=== PATIENT | female | born 1945 | race Caucasian/White ===

== ENCOUNTER 2019-08-23 22:24 | Emergency (ER) | payer MEDICARE, OTHER, SELFPAY ==
[2019-08-23 22:35] VITALS: BP 193/126; PULSE 93; RESP 18; TEMP 36.6; O2SAT 98; BMI 19.1
--- NOTE | 2019-08-23 22:35 | ED_ITS ---
HPI - General Adult General: Chief complaint: General Medical Stated complaint: high bp Time Seen by Provider: 08/23/19 22:25 Source: patient Mode of arrival: ambulatory Limitations: no limitations History of Present Illness: HPI narrative: mild headache noted earlier today, checked BP and noted it was very elevated Severity scale (1-10): 2 Associated symptoms: Deny headache(s) Review of Systems General: Reports: 10 or more systems reviewed and unremarkable except in HPI and below Eyes: Denies: change in vision or blurry vision Neuro: Denies: headache Psych: Denies: anxiety PFSH ED PFSH: Social History Smoking and tobacco status: never smoked Physical Exam Const: COMMON NORMALS: no apparent distress, oriented x3, no limitations and alert GENERAL APPEARANCE: cooperative and comfortable ORIENTATION/CONSCIOUSNESS: Yes awake, Yes oriented to person, Yes oriented to place and Yes oriented to time HENMT: COMMON NORMALS: normocephalic, head/scalp atraumatic, external ears normal, EAC's normal, TM's normal bilaterally and external nose normal HEAD & SCALP: normal to inspection, normocephalic and atraumatic FACE & SINUS: normal facial exam, sinuses nontender and face symmetric NOSE: external nose normal, nares normal and no nasal discharge EXTERNAL EAR: Yes external ears normal EXTERNAL AUDITORY CANAL: EAC's normal TYMPANIC MEMBRANE: TM's normal bilaterally MOUTH: oral and palatal mucosa normal, lip normal and tongue normal THROAT: posterior oropharynx normal, tonsils normal and uvula midline Eye: COMMON NORMALS: PERRL, EOMs intact bilaterally and conjunctivae normal GENERAL EYE: normal appearance of both eyes and normal light reflex EYELID: eyelids normal CONJUNCTIVA: Yes conjunctivae normal PUPIL: Yes PERRL EOM: Yes EOM abnormal DIRECT OPHTHALMOSCOPY: Yes normal light reflex Neck/C-Spine: COMMON NORMALS: full ROM, no lymphadenopathy, supple, no meningeal signs, no JVD and thyroid normal GENERAL: Yes normal visual inspection THYROID: thyroid normal CERVICAL SPINE: Yes cervical ROM normal and Yes normal cervical lordosis Lymph: LYMPHATIC: no lymphadenopathy noted Chest: COMMONS NORMALS: inspection of chest normal and palpation of chest normal Resp: COMMON NORMALS: normal respiratory effort, no retractions and clear to auscultation bilaterally AUSCULTATION: clear to auscultation bilaterally Cardio: COMMON NORMALS: no JVD, regular rate, regular rhythm, S1 normal heart sound, S2 normal heart sound, no gallops, no clicks, no murmurs, no rub and peripheral pulses 2+ throughout RATE: regular rate RHYTHM: regular rhythm HEART SOUNDS: S1 normal and S2 normal PERIPHERAL PULSES: pulses 2+ through out GI: COMMON NORMALS: normal to inspection, nondistended, normoactive bowel sounds, soft to palpation, non-tender and no masses PALPATION: Yes soft : COMMON NORMALS: Yes no CVA tenderness and Yes external appearance normal BLADDER/KIDNEY EXAM: Yes no CVA tenderness Back/Pelvis: COMMON NORMALS: no CVA tenderness, thoracic and lumbar spine normal to inspection, no thoracic nor lumbar tenderness and thoraco-lumbar ROM normal Extremity: COMMON NORMALS: normal to inspection, full ROM, normal capillary refill, no joint enlargement, no clubbing, cyanosis or edema, no calf tenderness and no pedal edema GENERAL: Yes normal exam except as noted Neuro: COMMON NORMALS: oriented x3, moves all extremities, no focal motor deficits, no sensory deficits noted and gait normal SENSORIUM/ORIENTATION: Yes alert, Yes oriented to person, Yes oriented to place and Yes oriented to time MENINGEAL SIGNS: Yes no meningeal signs Psych: COMMON NORMALS: mental status grossly normal, thought process normal, cooperative, affect normal, speech normal and activity/motor behavior normal SPEECH: Yes normal speech THOUGHT PROCESS: normal thought process Skin: COMMON NORMALS: no rashes or lesions noted, no wounds and skin turgor normal GENERAL SKIN EXAM: no rashes or lesions noted and turgor normal Course ED course: pt has no neurological deficits, no changes in vision, mild headache, and denies CP or SOB. Reevaluation(s): Reevaluation #1: Discussed pt with my ER attending, Dr. Soria. Will proceed with amlodipine PO and hydralizine. CT head deferred at this time as pt has minimal headache and is not on any anticoagulants. Time: 23:51 Reevaluation #2: Pt feeling slightly better. She complains of some lightheaded ness and general malaise after her BP came back down. Also pt developed a rash on face after the amlodipine was given. She does not complain of any cp or sob at this time and is not itching or having difficulty swallowing. Ativan given to help pt feel less shakey. EKG shows RBBB incomplete. Labs are within normal limits. Will dc with clonidine and pt to follow up with pcp for BP medications. Time: 02:05 Vital Signs: Vital signs: Vital Signs Temperature 97.8 F 08/23/19 22:35 Pulse Rate 98 08/24/19 01:32 Respiratory Rate 16 08/24/19 01:47 Blood Pressure 153/100 08/24/19 01:47 Pulse Oximetry 98 08/24/19 01:47 MDM - General Adult Lab Data: Labs: Lab Results 08/23/19 08/23/19 Range/Units 23:27 23:27 WBC 5.8 (4.0-10.0) 10^3/ uL RBC 4.52 (4.1-5.3) 10^6/u L Hgb 13.1 (11.5-15.3) g/dL Hct 39.5 (37.0-47.0) % MCV 87.4 (81-99) fL MCH 29.0 (28.0-34.0) pg MCHC 33.2 (30.0-36.0) g/dL RDW 13.0 (12.1-15.1) % Plt Count 266 (130-400) 10^3/c mm MPV 9.0 (7.4-10.4) fL Neut % (Auto) 74.8 % Lymph % (Auto) 15.3 % [place] % (Auto) 9.0 % Eos % (Auto) 0.3 % Baso % (Auto) 0.3 % Neut # (Auto) 4.3 (1.8-7.7) 10^3/u L Lymph # (Auto) 0.9 (0.8-4.8) 10^3/u L [place] # (Auto) 0.5 (0.2-0.9) 10^3/u L Eos # (Auto) 0.0 (0.0-0.8) 10^3/u L Baso # (Auto) 0.0 (0.0-0.1) 10^3/u L Nucleated RBC % (a uto) 0 % Nucleated RBCs # 0.0 /100WBC Sodium 136 (136-145) mmol/L Potassium 4.4 (3.5-5.1) mmol/L Chloride 99 (98-107) mmol/L Carbon Dioxide 25 (22-29) mmol/L Anion Gap 16.4 (5-19) BUN 16 (8-23) mg/dL Creatinine 0.8 (0.5-0.9) mg/dL Glucose 132 H (65-115) mg/dL Calculated Osmolal ity 280 L (285-295) mOsm/k g Calcium 10.3 (8.5-10.5) mg/dL Total Bilirubin 0.4 (0.15-1.2) mg/dL AST 23 (0-32) U/L ALT 19 (0-33) U/L Alkaline Phosphata se 80 (35-105) IU/L Total Protein 7.4 (6.6-8.7) g/dL Albumin 4.6 (3.5-5.2) g/dL Globulin 2.8 (1.3-4.6) g/dL Discharge Plan Discharge Patient Disposition: Home, Self-Care Clinical Impression: Hypertension Condition: Stable Prescriptions: New clonidine HCl 0.1 mg tablet 0.1 mg PO Q6H PRN (Reason: hypertensive emergency) Qty: 10 RF: 0 Referrals: Meenakshi Solis MD [Primary Care Provider] - Discharge Diet: Advance as tolerated and Low Salt Discharge Activity: Resume usual activity Activity Restrictions/Additional Instructions: Please return if you develop CP or SOB. Follow up with your on Monday. Coding Level of Care Code ED Interlibrary Loan Specialist for Chg Fwd Exam Comprehensive
--- NOTE | 2019-08-23 23:00 | PC.NURSE ---
patient states she was dizzy today and sick to her stomach and her son advised her to take her blood pressure. the patient took her blood pressure and it was a high reading. patient states that she has a headache and she has had high blood pressure episode one other time and gave her blood pressure medicine and her blood pressure was getting too low with the medication so she stopped taking her medicine that was prescribed.
[2019-08-23 23:03] VITALS: BP 195/115; PULSE 100; RESP 16; O2SAT 100
[2019-08-23] MEDS: amlodipine 5 mg Tablet PO (23:19)
[2019-08-23] MEDS: hyDRALAzine 20 mg/mL INJ 1 mL 10 MG IVP (23:20)
[2019-08-23 23:25] VITALS: BP 170/107; PULSE 88; RESP 14; O2SAT 100
[2019-08-23 23:34] LABS: Basophils % 0.3 %; Eosinophils % 0.3 %; Hematocrit 39.5 % (37.0-47.0); Hemoglobin 13.1 g/dL (11.5-15.3); Lymphocytes # 0.9 10^3/uL (0.8-4.8); Lymphocytes % 15.3 %; Mean Corpuscular HGB Conc 33.2 g/dL (30.0-36.0); Mean Corpuscular Volume 87.4 fL (81-99); Monocytes # 0.5 10^3/uL (0.2-0.9); Neutrophils # 4.3 10^3/uL (1.8-7.7); Neutrophils % 74.8 %; Nucleated Red Blood Cells % 0 %; Platelet Count 266 10^3/cmm (130-400); Red Blood Count 4.52 10^6/uL (4.1-5.3); White Blood Count 5.8 10^3/uL (4.0-10.0)
[2019-08-23 23:50] LABS: Alanine Aminotransferase 19 U/L (0-33); Albumin Level 4.6 g/dL (3.5-5.2); Alkaline Phosphatase 80 IU/L (35-105); Anion Gap 16.4 (5-19); Aspartate Amino Transferase 23 U/L (0-32); Blood Urea Nitrogen 16 mg/dL (8-23); Calcium 10.3 mg/dL (8.5-10.5); Carbon Dioxide 25 mmol/L (22-29); Chloride 99 mmol/L (98-107); Creatinine Clr Calc Pharmacy 55.2564; Globulin 2.8 g/dL (1.3-4.6); Glucose 132 mg/dL (65-115); Osmolality Calculated 280 mOsm/kg (285-295); Potassium 4.4 mmol/L (3.5-5.1); Sodium 136 mmol/L (136-145); Total Bilirubin 0.4 mg/dL (0.15-1.2); Total Protein 7.4 g/dL (6.6-8.7)
[2019-08-24 00:10] VITALS: BP 161/93; PULSE 98; RESP 16; O2SAT 100
--- NOTE | 2019-08-24 00:14 | PC.NURSE ---
placed patient on 1 liter oxygen per hcp verbal order
[2019-08-24 00:45] VITALS: BP 156/87; O2SAT 100
--- NOTE | 2019-08-24 01:16 | ECG_ITS ---
Measurements Intervals [place] Rate: 90 P: 69 FL: 140 QRS: -12 QRSD: 95 T: 54 QT: 366 QTc: 448 SINUS RHYTHM WITH SINUS ARRHYTHMIA INDETERMINATE AXIS INCOMPLETE RIGHT BUNDLE BRANCH BLOCK [90+ ms QRS DURATION, TERMINAL R IN V1/V2, 4 40+ ms S IN I/aVL/V4/V5/V6] Compared to ECG 07/10/2016 00:09:12 Myocardial infarct finding no longer present Electronically Signed On 08-24-2019 20:22:27 CDT by Grisel Mitchell M.D. [email or web address] thomas
[2019-08-24] MEDS: LORazepam 2 mg/mL INJ 1 mL IVP (01:30)
[2019-08-24 01:32] VITALS: BP 153/100; PULSE 98; RESP 16; O2SAT 99
[2019-08-24 01:47] VITALS: BP 153/100; RESP 16; O2SAT 98
[2019-08-24 02:21] VITALS: BP 128/73; PULSE 89; RESP 16; O2SAT 99
== END 2019-08-24 02:23 | disposition home or self-care (01) ==
PROVIDERS: Emergency Provider Nurse Practitioner Family; PCP Family Medicine
DX: I10 Essential (primary) hypertension (principal)
CPT/HCPCS: 12345; 80053; 85025; 93005; 96374; 96375; 99283; 99284; J0360; J2060

== ENCOUNTER 2019-08-27 07:50 | Outpatient (CLI) | payer MEDICARE, OTHER, SELFPAY ==
--- NOTE | 2019-08-27 | USCV_ITS ---
Bette Dawson Age: 74 Gender: F : 1945 Exam Date: 08/27/2019 08:16 Ordering Phys: Talisha Gilbert Technologist: Kimmy Argueta Exam Location: [facility] – [place] Indication: TIA Risk Factors: Previous Vascular Surgery: Right Brachial BP: / Left Brachial BP: / Right Left Velocity (cm/s) Spectral Plaque Velocity (cm/s) Spectral Plaque Syst/Diast Broadening Syst/Diast Broadening 73.60/ 16.10 Prox CCA 71.60 / 13.90 72.80/ 12.30 Mid CCA 79.40 / 20.90 68.70/ 13.50 Distal CCA 75.00 / 17.60 40.80/ 14.30 Prox ICA 43.50 / 17.20 78.30/ 27.60 Mid ICA 54.70 / 17.20 76.70/ 27.00 Distal ICA 69.70 / 21.80 89.80 ECA 66.00 1.08 ICA/CCA 0.88 Antegrade Vertebral Antegrade 59.40/ 14.20 cm/s 29.00/ 6.90 cm/s Tri Subclavian Tri 48.70 106.0 0 FINDINGS Minimal plaques at the bifurcations bilaterally. Intimal thickening in the common carotid arteries bilaterally. Normal Doppler flow velocities in the external and internal carotid arteries bilaterally. Antegrade flow in the vertebral arteries bilaterally. CONCLUSIONS Minimal plaques at the bifurcations bilaterally. No significant stenosis, based on the above findings. Dr Richard Lee MD [facility] (Electronically Signed) Final Date: 27 August 2019 16:42 S
--- NOTE | 2019-08-27 | USCV_ITS ---
Bette Dawson Age: 74 Gender: F : 1945 Exam Date: 08/27/2019 08:01 Ordering Phys: Talisha Gilbert Technologist: Kimmy Argueta Exam Location: [facility] [place] Indication: TIA BP: 166 / 102 HR: 83 Rhythm: Sinus Technical Quality: Adequate MEASUREMENTS (Male / Female) Normal Values 2D ECHO LV Diastolic Diameter PLAX 3.7 cm 4.2 - 5.9 / 3.9 - 5.3 cm LV Systolic Diameter PLAX 2.3 cm LV Chamber Size 3.3 cm IVS Diastolic Thickness 0.8 cm 0.6 - 1.0 / 0.6 - 0.9 cm IVS Systolic Thickness 1.1 cm LVPW Diastolic Thickness 1.7 cm 0.6 - 1.0 / 0.6 - 0.9 cm LVPW Systolic Thickness 1.9 cm RV Chamber Size 2.2 cm LVOT Diameter 2.0 cm LV Ejection Fraction 2D Teich 67.1 % LV Ejection Fraction MOD 2C 50.9 % LV Ejection Fraction 2C AL 50.5 % LA Diameter 2.9 cm LA Width 2.4 cm LA Height 2.9 cm RA Width 2.5 cm RA Height 2.8 cm Aorta at Sinotubular Diameter 2.7 cm M-MODE LV Diastolic Diameter MM 5.4 cm 4.2 - 5.9 / 3.9 - 5.3 cm LV Systolic Diameter MM 3.3 cm LV Ejection Fraction MM Teich 68.4 % IVS Diastolic Thickness MM 0.5 cm 0.6 - 1.0 / 0.6 - 0.9 cm IVS Systolic Thickness MM 0.6 cm LVPW Diastolic Thickness MM 0.8 cm 0.6 - 1.0 / 0.6 - 0.9 cm LVPW Systolic Thickness MM 1.1 cm Aortic Annulus Diameter 2.4 cm LA Ao Ratio MM 1.2 MV E Point Septal Separation 0.6 cm DOPPLER AV Peak Velocity 118.0 cm/s LVOT Peak Velocity 93.0 cm/s AV Area Cont Eq vti 2.5 cm squared AV Area Cont Eq pk 2.5 cm squared MV Area PHT 4.0 cm squared Mitral E to A Ratio 1.0 MV E' Velocity 10.0 cm/s Mitral E to MV E' Ratio 7.7 Mitral E to LV E' Lateral Ratio 8.6 Mitral E to LV E' Septal Ratio 7.0 TR Peak Velocity 295.0 cm/s TR Peak Gradient 34.7 mmHg TR Mean Velocity 218.8 cm/s TR Mean Gradient 20.6 mmHg TR Velocity Time Integral 95.7 cm TV Peak E Velocity 49.0 cm/s Right Atrial Pressure 3.0 mmHg Pulmonary Artery Systolic Pressu 37.8 mmHg PV Peak Velocity 61.0 cm/s RV Acceleration Time 0.2 s RV Ejection Time 0.4 s RV AcT/ET 0.4 FINDINGS Left Ventricle Normal left ventricular size and systolic function, EF 55 %. No regional wall motion abnormalities. Right Ventricle The right ventricle is normal in size and function. Right Atrium The right atrium is normal in size. Left Atrium The left atrium is normal in size. Mitral Valve No gross abnormalities noted Aortic Valve No gross abnormalities noted Tricuspid Valve No gross abnormalities noted Trace to mild tricuspid valve regurgitation. Estimated pulmonary artery peak systolic pressure was 38 mmHg Pulmonic Valve No gross abnormalities noted Pericardium Normal pericardium without effusion. Aorta Normal ascending aorta dimension. CONCLUSIONS Normal left ventricular size and systolic function, EF 55 %. No regional wall motion abnormalities. Normal chamber sizes. Trace to mild tricuspid valve regurgitation. Estimated pulmonary artery peak systolic pressure was 38 mmHg No significant stenotic or regurgitant lesions based on the color flow Doppler examination. There is no pericardial effusion. There are no intracardiac masses. Compared to the study from 07/20/2016, there may not be a significant change Dr Richard Lee MD [facility] (Electronically Signed) Final Date: 27 August 2019 16:40 S
== END 2019-08-27 07:51 | disposition home or self-care (01) ==
LOC: RAD 07:54
PROVIDERS: PCP Family Medicine; Visit Provider Nurse Practitioner Family
DX: G45.9 Transient cerebral ischemic attack, unspecified (principal)
CPT/HCPCS: 93306; 93880

== ENCOUNTER 2019-08-28 08:34 | Outpatient (CLI) | payer MEDICARE, OTHER, SELFPAY ==
--- NOTE | 2019-08-28 08:50 | MR_ITS ---
WS: [id number] MRI BRAIN WITH AND WITHOUT CONTRAST HISTORY: TIA comment dizziness and hypertension. COMPARISON: None available. TECHNIQUE: Multiplanar imaging performed through the brain with Prohance 12 ml's IV. There is significant artifact through the brain on multiple sequences. Patient would not remove perso nal productive mask, which had metal. The diffusion-weighted images are limited due to the significant artifact from the patient's personal protective device. Similar artifact throughout the susceptibility and postcontrast imaging. No diffu brayden-weighted images or hemorrhage is identified. Mild chronic microvascular ischemic disease. Very mild atrophy. Ventricles and extra-axial spaces are normal. Clivus and pituitary gland are normal. Visualized posterior fossa and brainstem are also normal. Postcontrast images are limited by artifact from the patient's personal protective device. No mass id entified or abnormal enhancement in the areas without artifact. Dural venous sinuses are normal. Paranasal sinuses: Well aerated with no significant disease. Mastoid air cells: Normal. Calvarium and scalp: Normal. MR/MR head wo/w con [id number] IMPRESSION: 1. Study is limited by artifact from the patient's personal protective mask th at she would not removed. 2. No acute infarcts or hemorrhage or abnormal enhancement identified in the a reas of brain not obscured by artifact. 3. Mild atrophy and mild chronic microvascular ischemic disease.
== END 2019-08-28 08:35 | disposition home or self-care (01) ==
LOC: RADWPI 08:41
PROVIDERS: PCP Nurse Practitioner Family; Visit Provider Nurse Practitioner Family
DX: G45.9 Transient cerebral ischemic attack, unspecified (principal); R42 Dizziness and giddiness; I10 Essential (primary) hypertension; G31.9 Degenerative disease of nervous system, unspecified
CPT/HCPCS: 70553; A9579

== ENCOUNTER → 2020-01-30 11:15 | Outpatient (BNVA) | payer MEDICARE, OTHER, SELFPAY | PROVIDERS: PCP Nurse Practitioner Family; Referring Provider Nurse Practitioner Family; Visit Provider Dermatology | DX: L71.8 Other rosacea (principal); L82.1 Other seborrheic keratosis; D18.01 Hemangioma of skin and subcutaneous tissue; L57.0 Actinic keratosis; L71.9 Rosacea, unspecified | CPT/HCPCS: 17000; 17003; 99203; 99204 ==

== ENCOUNTER 2021-02-10 10:28 | Outpatient (CLI) | payer MEDICARE, OTHER, SELFPAY ==
--- NOTE | 2021-02-10 10:33 | MM_ITS ---
WS: [id number] Bilateral screening digital mammogram, 02/10/2021 Clinical Data: SCREENING Comparison: None. Findings: The breast parenchymal pattern shows extreme density. No spiculated masses or clustered calcificatio ns are seen. There are no secondary signs of carcinoma. MM/[place] [id number] Impression: 1. Negative bilateral mammogram with no prior exam for review. 2. Recommend annual screening mammograms. BIRADS: 1-Negative FOLLOW UP: 1 Year Follow-up The CAD tip length checker was used.
== END 2021-02-10 10:29 | disposition home or self-care (01) ==
LOC: RADSHAW 10:32
PROVIDERS: PCP Nurse Practitioner Family; Visit Provider Nurse Practitioner Family
DX: Z12.31 Encounter for screening mammogram for malignant neoplasm of breast (principal)
CPT/HCPCS: 77067

== ENCOUNTER 2021-09-14 12:32 | Outpatient (CLI) | payer MEDICARE, OTHER, SELFPAY ==
--- NOTE | 2021-09-14 12:44 | XR_ITS ---
WS: [id number] DEXA (DUAL ENERGY X-RAY ABSORPTIOMETRY) Bone mineral density was performed using a Voddler machine. HISTORY: ANNUAL EXAM COMPARISON: None available. Lumbar spine BMD (L2-L4): 0.809 T score: -3.3 Z score: -1.1 Total hip BMD: Left: 0.588 g/cm2. T score: -3.3 Z score: -1.3 Right: 0.624 g/cm2. T score: -3.0 Z score: -1.1 10 year probability of a major osteoporotic fracture is 25%. XR/XR DEXA axial skeleton* [id number] IMPRESSION: OSTEOPOROSIS based upon the WHO classification for females.
== END 2021-09-14 12:33 | disposition home or self-care (01) ==
PROVIDERS: PCP Nurse Practitioner Family; Visit Provider Nurse Practitioner Family
DX: Z00.00 Encounter for general adult medical examination without abnormal findings (principal); M81.0 Age-related osteoporosis without current pathological fracture
CPT/HCPCS: 77080

== ENCOUNTER → 2021-10-06 11:56 | Outpatient (BNVA) | payer MEDICARE, OTHER, SELFPAY | PROVIDERS: PCP Nurse Practitioner Family; Visit Provider Nurse Practitioner Family | DX: M81.0 Age-related osteoporosis without current pathological fracture (principal) | CPT/HCPCS: 82306 ==

== ENCOUNTER → 2022-02-07 09:45 | Outpatient (BNVA) | payer MEDICARE, OTHER, SELFPAY | PROVIDERS: PCP Nurse Practitioner Family; Referring Provider Family Medicine; Visit Provider Surgery | DX: R19.5 Other fecal abnormalities (principal) | CPT/HCPCS: 99203 ==

== ENCOUNTER 2022-02-14 10:58 | Day surgery (SDC) | payer MEDICARE, OTHER, SELFPAY ==
[2022-02-10 14:06] VITALS: BMI 19.1
[2022-02-14 11:24] VITALS: BP 178/103; PULSE 107; RESP 18; TEMP 36.3; O2SAT 99
[2022-02-14] MEDS: sodium chloride 0.9% 1,000 ML 30 ML IV (11:36)
--- NOTE | 2022-02-14 11:46 | ANES.PREANE2 ---
Pre-Anesthetic Assessment Height/Weight: Height 1.65 m Weight 52.163 kg Temp Pulse Resp BP Pulse Ox O2 Del Method 97.3 F L 107 H 18 178/103 99 02/14/22 11:24 02/14/22 11:24 02/14/22 11:24 02/14/22 11:24 02/14/22 11:24 02/14/22 11:24 Preop Diagnosis: Positive colorectal cancer screening. Operation Date: 02/14/22 12:30 Proposed Procedures p Colonoscopy(Not Applicable) - Colton Elizondo DO Familial anesthetic complications: none Last intake: Intake Last Liquid Date 02/13/22 Last Liquid Time 19:30 Last Solid Date 02/12/22 Last Solid Time 18:00 Social No alcohol and No tobacco Airway Submandibular: within normal limits Cervical ROM: within normal limits Mallampati: Class I Dentition: full Pulmonary None reported CV/HEM None reported None reported Hepatic None reported GI None reported Metabolic None reported Musc/skel None reported Neuropsych None reported Anesthetic Plan ASA status: 1 Anesthesia: MAC Medications/Allergies Home Medications Medication Instructions Recorded Confirmed Last Taken Type triamcinolone acetonide 0.1 % 1 applic topical BID #80 grams 04/27/21 02/14/22 6 Months Ago Rx topical cream ~08/14/21 alendronate 70 mg tablet See Rx Instructions .Route .COMPLEX 02/10/22 02/10/22 02/09/22 History peg 3350-electrolytes 236 240 ml PO Q10M #4,000 mL 02/10/22 02/14/22 02/13/22 Rx gram-22.74 gram-6.74 gram-5.86 gram solution (Golytely) Allergies Allergy/AdvReac Type Severity Reaction Status Date / Time No Known Allergies Allergy Verified 02/07/22 09:51 Current Medications Generic Name Dose Route Start Last Admin Trade Name Freq PRN Reason Stop Dose Admin Sodium Chloride 1,000 mls @ 30 mls/hr 02/14/22 11:15 02/14/22 11:36 Sodium Chloride 0.9% IV 02/15/22 11:14 30 mls/hr .Q24H JACY Administration PFSH Anesthesia Medical History Acne rosacea, erythematous telangiectatic type No pertinent family history No pertinent past medical history Surgical History H/O: hysterectomy H/O: knee surgery Family History Other Hypertension Social History Smoking and tobacco status: never smoked Data Anesthesia Cardiac Studies: Echocardiogram Ultrasound 08/27/19 Holter Monitor 11/29/19
--- NOTE | 2022-02-14 11:58 | W.PM.OPSUD ---
Surgery/Procedure H&P Update DATE OF PROCEDURE: February 14, 2022 DATE H&P PERFORMED: 02/07/22 PREOP DIAGNOSIS: Positive colorectal cancer screening. PLANNED PROCEDURE: Operation Date: 02/14/22 12:30 Proposed Procedures p Colonoscopy(Not Applicable) - Colton Elizondo DO
[2022-02-14 12:25] VITALS: BP 89/58; PULSE 78; RESP 18; TEMP 36.1; O2SAT 98
[2022-02-14 12:51] VITALS: BP 138/86; PULSE 64; RESP 18; O2SAT 96
--- NOTE | 2022-02-14 15:46 | ANE.PACU2 ---
Inpatient post-anesthesia follow up: Airway intact: Yes Vital signs: Temperature 97.0 F Pulse Rate 64 Respiratory Rate 18 Blood Pressure 138/86 Pulse Oximetry 96 Oxygen Delivery Me thod Room Air Oxygen Flow Rate Fraction of Inspir ed Oxygen Hydration adequate: Yes Nausea and vomiting: No Pain level: 1 Mental status: Baseline
== END 2022-02-14 12:58 | disposition home or self-care (01) ==
PROVIDERS: PCP Nurse Practitioner Family; Visit Provider Surgery
PROC: 0DJD8ZZ Inspection of Lower Intestinal Tract, Via Natural or Artificial Opening Endoscopic (ICD-10-PCS; CPT 45378; principal; 2022-02-14 12:30)
DX: Z12.11 Encounter for screening for malignant neoplasm of colon (principal); K64.4 Residual hemorrhoidal skin tags
CPT/HCPCS: G0121; J2704; J7030

== ENCOUNTER 2022-02-18 13:25 | Outpatient (CLI) | payer MEDICARE, OTHER, SELFPAY ==
--- NOTE | 2022-02-18 14:00 | MM_ITS ---
WS: [id number] BILATERAL SCREENING DIGITAL TOMOSYNTHESIS MAMMOGRAM WITH CAD HISTORY: SCREENING COMPARISON: 02/08/2021 Bilateral CC and MLO views with tomosynthesis and synthetic mammography submitted. Computer aided det ection analyzed. Breast composition: The breasts are extremely dense, which lowers the sensitivity of mammography. No suspicious masses, microcalcifications or architectural distortion. Breast parenchyma is very dense. Benign breast arterial calcifications. No architectural distortion. MM/[place] [id number] IMPRESSION: BI-RADS: 2-Benign FOLLOW UP: 1 Year Follow-up
== END 2022-02-18 13:26 | disposition home or self-care (01) ==
PROVIDERS: PCP Nurse Practitioner Family; Visit Provider Nurse Practitioner Family
DX: Z12.31 Encounter for screening mammogram for malignant neoplasm of breast (principal)
CPT/HCPCS: 77063; 77067

== ENCOUNTER → 2022-03-16 14:04 | Outpatient (BNVA) | payer MEDICARE, OTHER, SELFPAY | PROVIDERS: PCP Nurse Practitioner Family; Visit Provider Surgery | DX: Z09 Encounter for follow-up examination after completed treatment for conditions other than malignant neoplasm (principal); K64.4 Residual hemorrhoidal skin tags | CPT/HCPCS: 99212 ==

== ENCOUNTER → 2022-03-28 11:35 | Outpatient (BNVA) | payer MEDICARE, OTHER, SELFPAY | PROVIDERS: PCP Nurse Practitioner Family; Visit Provider Family Medicine | DX: M81.0 Age-related osteoporosis without current pathological fracture (principal); Z83.49 Family history of other endocrine, nutritional and metabolic diseases | CPT/HCPCS: 84443 ==

== ENCOUNTER 2022-04-15 21:10 | Emergency (ER) | payer MEDICARE, OTHER, SELFPAY ==
--- NOTE | 2022-04-15 21:18 | ECG_ITS ---
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 Measurements Intervals [place] Rate: 87 P: 29 [place]: 144 QRS: -6 QRSD: 89 T: 42 QT: 347 QTc: 419 Interpretive Statements SINUS RHYTHM INDETERMINATE AXIS POSSIBLE RIGHT VENTRICULAR CONDUCTION DELAY [RSR (QR) IN V1/V2] Compared to ECG 08/24/2019 01:49:41 Sinus arrhythmia no longer present Incomplete right bundle-branch block no longer present Electronically Signed On 04-16-2022 11:05:03 BATTERY TESTER AND REPAIRER by Holland Olea M.D. [id number]
[2022-04-15 21:32] VITALS: BP 207/104; PULSE 90; RESP 16; TEMP 36.6; O2SAT 97
--- NOTE | 2022-04-15 21:48 | XRR_ITS ---
PROCEDURE INFORMATION: Exam: XR Chest Exam date and time: 04/15/2022 11:34 PM Age: 77 years old Clinical indication: Pain; Chest pressure; Additional info: Cp TECHNIQUE: Imaging protocol: Radiologic exam of the chest. Views: 1 view. COMPARISON: CR XR chest 1V [id number] 07/09/2016 10:56 PM FINDINGS: Lungs: Unremarkable. No consolidation. Pleural spaces: Unremarkable. No pleural effusion. No pneumothorax. Heart/Mediastinum: Unremarkable. No cardiomegaly. Bones/joints: Unremarkable. XR/XR chest 1V portable [id number] IMPRESSION: No acute findings.
--- NOTE | 2022-04-15 22:12 | ED_ITS ---
HPI - Chest Pain General: Chief Complaint: Chest Pain Stated Complaint: high bp Time Seen by Provider: 04/15/22 21:38 Source: patient Mode of arrival: ambulatory Limitations: no limitations History of Present Illness: 77-year-old female states that her blood pressures been running high today. She states that its been running in the 200s states it did it once before she had some mild dizziness she states she otherwise feels normal she denies any chest pain to me she denies any worsening improving fa ctors she has had no vomiting or diarrhea. Associated symptoms: Deny abdominal pain, dyspnea, fever(s), nausea or vomiting Review of Systems Const: Denies: fever(s), chills, body aches or change in appetite Eyes: Denies: blurry vision or eye discomfort ENMT: Denies: throat pain or dental pain Card: Denies: chest pain Resp: Denies: dyspnea GI: Denies: abdominal pain, nausea, vomiting or diarrhea : Denies: dysuria Musc: Denies: neck pain or back pain Skin/Breast: Denies: rash Neuro: Denies: headache(s) Psych: Denies: depression Parker/Lymph: Denies: easy bruising All/Imm: Denies: urticaria PFSH ED PFSH: Medical History Acne rosacea, erythematous telangiectatic type Osteoporosis Surgical History History of hysterectomy kept ovaries History of left knee surgery Family History (Updated 03/28/22 @ 10:37 by Eduarda Pagan MD) Father Chronic kidney disease (CKD) CAD (coronary artery disease) Denies family history of Diabetes Dementia Hypertension Stroke Social History Smoking and tobacco status: never smoked Alcohol intake: never Lives independently: Yes Household members: children Marital status: / Number of children: 3 Current occupational status: retired Physical Exam Const: COMMON NORMALS: no acute distress, patient oriented x3 and healthy appearing HENMT: COMMON NORMALS: normocephalic and atraumatic HEAD & SCALP: normocephalic and atraumatic Eye: COMMON NORMALS: Equal, round and reactive pupils present and EOMs intact bilaterally PUPIL: Yes Equal, round and reactive pupils present Neck/C-Spine: COMMON NORMALS: full ROM and supple Chest: COMMONS NORMALS: normal inspection of the chest and normal palpation of entire chest wall Resp: COMMON NORMALS: normal respiratory effort, No retractions, No use of accessory muscles and clear to auscultation bilaterally AUSCULTATION: clear to auscultation bilaterally Cardio: COMMON NORMALS: regular rate, regular rhythm and No murmurs present (Cardio) RATE: regular rate RHYTHM: regular rhythm GI: COMMON NORMALS: Normal to inspection, nondistended, normoactive bowel sounds present, Soft to palpation, non-tender and no masses PALPATION: Yes Soft to palpation Extremity: COMMON NORMALS: normal to inspection and full ROM Neuro: COMMON NORMALS: patient oriented x3, moves all extremities and no focal motor deficits Psych: COMMON NORMALS: mental status grossly normal, Normal thought process present and cooperative THOUGHT PROCESS: Normal thought process present Skin: COMMON NORMALS: no rashes or lesions noted and no wounds GENERAL SKIN EXAM: no rashes or lesions noted Course Vital Signs: Vital signs: Vital Signs Temperature 97.9 F 04/15/22 21:32 Pulse Rate 87 04/15/22 22:33 Respiratory Rate 12 04/15/22 22:33 Blood Pressure 169/102 04/15/22 22:33 Pulse Oximetry 97 04/15/22 22:33 Oxygen Delivery Me thod 04/15/22 21:32 MDM - Chest Pain Medical Decision Making Patient presents here with hypertension her blood pressure here is improved patient blood work is normal she is stable for discharge we will place her on [facility] she is to monitor her blood pressure keep a log and follow-up with PCP she is return if worsening. Lab Data 04/15/22 22:28 04/15/22 22:28 Radiology Impressions Chest X-Ray 04/15/22 21:48 IMPRESSION: No acute findings. Laboratory Results WBC 4.5 10^3/uL (4.0-10.0) 04/15/22 22:28 RBC 4.64 10^6/uL (4.1-5.3) 04/15/22 22:28 Hgb 13.9 g/dL (11.5-15.3) 04/15/22 22:28 Hct 40.9 % (37.0-47.0) 04/15/22 MCV 88.1 fl (81-99) 04/15/22: MCH 30.0 pg (28.0-34.0) 04/15/22 MCHC 34.0 g/dL (30.0-36.0) 04/15/22 RDW 13.1 % (12.1-15.1) 04/15/22 Plt Count 293 10^3/cmm (130-400) 04/15/22 MPV 8.8 fL (7.4-10.4) 04/15/22 Neut % (Auto) 61.8 % 04/15/22: Lymph % (Auto) 22.8 % 04/15/22 [place] % (Auto) 12.4 % 04/15/22 Eos % (Auto) 2.4 % 04/15/22 Baso % (Auto) 0.4 % 04/15/22 Neut # (Auto) 2.79 10^3/uL (1.8-7.7) 04/15/22 Lymph # (Auto) 1.0 10^3/uL (0.8-4.8) 04/15/22: [place] # (Auto) 0.6 10^3/uL (0.2-0.9) 04/15/22 Eos # (Auto) 0.1 10^3/uL (0.0-0.8) 04/15/22 Baso # (Auto) 0.0 10^3/uL (0.0-0.1) 04/15/22 Nucleated RBC % (auto) 0 % 04/15/22 Nucleated RBCs # 0.0 /100WBC 04/15/22 PT 13.40 SECONDS (12.1-14.9) 04/15/22 INR 0.99 (0.8-1.2) 04/15/22 Sodium 134 mmol/L (136-145) L 04/15/22 Potassium 3.9 mmol/L (3.5-5.1) 04/15/22 Chloride 99 mmol/L (98-107) 04/15/22 22:28 Carbon Dioxide 23 mmol/L (22-29) 04/15/22 22:28 Anion Gap 15.9 (5-19) 04/15/22 22:28 BUN 14 mg/dL (8-23) 04/15/22 22:28 Creatinine 0.6 mg/dL (0.5-0.9) 04/15/22 22:28 GFR Calculation Not Reportable 04/15/22 22:28 Glucose 123 mg/dL (65-115) H 04/15/22 22:28 Calculated Osmolality 280 mOsm/kg (285-295) L 04/15/22 22:28 Calcium 9.8 mg/dL (8.5-10.5) 04/15/22 22:28 Total Bilirubin 0.3 mg/dL (0.15-1.2) 04/15/22 22:28 AST 23 U/L (0-32) 04/15/22 22:28 ALT 18 U/L (0-33) 04/15/22 22:28 Alkaline Phosphatase 95 U/L (35-105) 04/15/22 22:28 Troponin T Baseline 10 ng/L (0-10) 04/15/22 22:28 Total Protein 7.1 g/dL (6.6-8.7) 04/15/22 22:28 Albumin 4.7 g/dL (3.5-5.2) 04/15/22 22:28 Globulin 2.4 g/dL (1.3-4.6) 04/15/22 22:28 EKG Data EKG 1: I personally reviewed and interpreted this EKG as follows: EKG interpretation date: 04/15/22 EKG interpretation time: 21:37 Interpretation: nsr hr [address] or t wave abnormalities qrs 89 qtc 392 Discharge Plan Discharge Patient Disposition: Home Clinical Impression: Hypertension Condition: Stable Prescriptions: New amlodipine 2.5 mg tablet 2.5 mg PO DAILY Qty: 30 0RF No Action alendronate 70 mg tablet See Rx Instructions .ROUTE .COMPLEX Rx Instructions: 70 mg orally one time a week Discharge Orders: Discharge ED (Routine); Ordered 04/15/22 Ordered By: Evelyne Coreas Referrals: Eduarda Pagan MD [Primary Care Provider] - 1-3 days Discharge Diet: Advance as tolerated Discharge Activity: Resume usual activity Patient Instructions: Hypertension (ED) Coding Level of Care Code ED Director Of Field Coordination for Chg Fwd Exam Comprehensive
[2022-04-15] MEDS: labetalol 5 mg/mL SDV 20mL 10 MG IVP (22:31)
[2022-04-15 22:33] VITALS: BP 169/102; PULSE 87; RESP 12; O2SAT 97
[2022-04-15 22:41] LABS: Basophils % 0.4 %; Eosinophils # 0.1 10^3/uL (0.0-0.8); Eosinophils % 2.4 %; Hematocrit 40.9 % (37.0-47.0); Hemoglobin 13.9 g/dL (11.5-15.3); Lymphocytes % 22.8 %; Mean Corpuscular Volume 88.1 fl (81-99); Mean Platelet Volume 8.8 fL (7.4-10.4); Monocytes # 0.6 10^3/uL (0.2-0.9); Monocytes % 12.4 %; Neutrophils # 2.79 10^3/uL (1.8-7.7); Neutrophils % 61.8 %; Nucleated Red Blood Cells % 0 %; Platelet Count 293 10^3/cmm (130-400); Red Blood Count 4.64 10^6/uL (4.1-5.3); Red Cell Distribution Width 13.1 % (12.1-15.1); White Blood Count 4.5 10^3/uL (4.0-10.0)
[2022-04-15 22:47] LABS: INR 0.99 (0.8-1.2)
[2022-04-15 23:27] LABS: Troponin(5th) Baseline 10 ng/L (0-10)
[2022-04-15 23:29] LABS: Albumin Level 4.7 g/dL (3.5-5.2); Chloride 99 mmol/L (98-107); Potassium 3.9 mmol/L (3.5-5.1); Sodium 134 mmol/L (136-145)
[2022-04-15 23:48] LABS: Alanine Aminotransferase 18 U/L (0-33); Alkaline Phosphatase 95 U/L (35-105); Anion Gap 15.9 (5-19); Aspartate Amino Transferase 23 U/L (0-32); Blood Urea Nitrogen 14 mg/dL (8-23); Calcium 9.8 mg/dL (8.5-10.5); Carbon Dioxide 23 mmol/L (22-29); Globulin 2.4 g/dL (1.3-4.6); Glucose 123 mg/dL (65-115); Osmolality Calculated 280 mOsm/kg (285-295); Total Bilirubin 0.3 mg/dL (0.15-1.2); Total Protein 7.1 g/dL (6.6-8.7)
--- NOTE | 2022-04-15 23:48 | ECG_ITS ---
[facility] Test Date: 2022-04-15 Pat Name: Bette Dawson Department: Room: Gender: Female Manager Welding: : 1945 Requested By: Evelyne Coreas Order Number: [id number] Joana MD: Holland Olea M.D. Measurements Intervals [place] Rate: 67 P: 66 [place]: 142 QRS: 33 QRSD: 94 T: 40 QT: 392 QTc: 415 Interpretive Statements SINUS RHYTHM INDETERMINATE AXIS INCOMPLETE RIGHT BUNDLE BRANCH BLOCK [90+ ms QRS DURATION, TERMINAL R IN V1/V2, 40+ ms S IN I/aVL/V4/V5/V6] Compared to ECG 08/24/2019 01:49:41 Sinus arrhythmia no longer present Electronically Signed On 04-16-2022 11:08:27 BONSAI CULTURIST by Holland Olea M.D. [email or web address] [email or web address] medical specialty [email or web address]/store/[id number]
[2022-04-16 00:18] VITALS: BP 149/92; PULSE 71; RESP 16; O2SAT 98
== END 2022-04-16 00:18 | disposition home or self-care (01) ==
PROVIDERS: Emergency Provider Emergency Medicine; PCP Family Medicine
DX: I10 Essential (primary) hypertension (principal)
CPT/HCPCS: 71045; 80053; 84484; 85025; 85610; 93005; 96374; 99285; J3490

== ENCOUNTER → 2022-12-13 14:03 | Outpatient (BNVA) | payer MEDICARE, OTHER, SELFPAY | PROVIDERS: PCP Family Medicine; Visit Provider Family Medicine | DX: Z13.6 Encounter for screening for cardiovascular disorders (principal); Z13.1 Encounter for screening for diabetes mellitus | CPT/HCPCS: 80053; 80061 ==

== ENCOUNTER → 2022-12-20 14:38 | Outpatient (BNVA) | payer MEDICARE, OTHER, SELFPAY | PROVIDERS: PCP Family Medicine; Visit Provider Family Medicine | DX: E87.1 Hypo-osmolality and hyponatremia (principal) | CPT/HCPCS: 80048 ==

== ENCOUNTER 2023-02-16 15:28 | Outpatient (CLI) | payer MEDICARE, OTHER, SELFPAY ==
--- NOTE | 2023-02-16 15:36 | XR_ITS ---
WS: [id number] Left foot, 3 views, 02/16/2023 Clinical Data: acute left foot pain swelling Comparison: Left foot, 05/04/2017. Findings: There is an undisplaced fracture of the midshaft of the left second metatarsal. No other fractures are seen. The joint spaces are normal. The soft tissues are not remarkable. Impression: Midshaft fracture of the left second metatarsal.
== END 2023-02-16 15:29 | disposition home or self-care (01) ==
PROVIDERS: PCP Family Medicine; Visit Provider Family Medicine
DX: S92.322A Displaced fracture of second metatarsal bone, left foot, initial encounter for closed fracture (principal); X58.XXXA Exposure to other specified factors, initial encounter
CPT/HCPCS: 73630

== ENCOUNTER → 2023-02-23 10:21 | Outpatient (BNVA) | payer MEDICARE, OTHER, SELFPAY | PROVIDERS: PCP Family Medicine; Visit Provider Podiatrist Foot & Ankle Surgery | DX: S92.322A Displaced fracture of second metatarsal bone, left foot, initial encounter for closed fracture (principal); R60.9 Edema, unspecified; X58.XXXA Exposure to other specified factors, initial encounter | CPT/HCPCS: 99203 ==

== ENCOUNTER → 2023-03-16 08:58 | Outpatient (BNVA) | payer MEDICARE, OTHER, SELFPAY | PROVIDERS: PCP Family Medicine; Visit Provider Podiatrist Foot & Ankle Surgery | DX: S92.322A Displaced fracture of second metatarsal bone, left foot, initial encounter for closed fracture; R60.9 Edema, unspecified; X58.XXXA Exposure to other specified factors, initial encounter | CPT/HCPCS: 73630; 99213 ==

== ENCOUNTER 2023-05-05 21:43 | Emergency (ER) | payer MEDICARE, OTHER, SELFPAY ==
[2023-05-05 21:49] VITALS: BP 226/110; PULSE 86; RESP 14; TEMP 36.3; O2SAT 99
--- NOTE | 2023-05-05 21:56 | ECG_ITS ---
[facility] Test Date: 2023-05-05 Pat Name: Bette Dawson Department: Room: Gender: Female Can Tender: : 1945 Requested By: Quinn Paredes Order Number: [id number] Joana MD: Richard Lee M.D. Measurements Intervals [place] Rate: 86 P: 31 [place]: 147 QRS: 13 QRSD: 89 T: 38 QT: 359 QTc: 431 Interpretive Statements SINUS RHYTHM INDETERMINATE AXIS POSSIBLE RIGHT VENTRICULAR CONDUCTION DELAY [RSR (QR) IN V1/V2] Compared to ECG 04/15/2022 23:48:42 Incomplete right bundle-branch block no longer present Electronically Signed On 05-06-2023 18:34:29 PRACTICING MD ANESTHESIOLOGIST by Richard Lee M.D. [email or web address] Technologiescor[facility].[email or web address]/store/NU/[id number] f
--- NOTE | 2023-05-05 22:00 | W.ED.ARRPALP ---
HPI - Arrhythmia/Palpitations General: Chief Complaint: Arrhythmia/Palpitations Stated Complaint: BP High Time Seen by Provider: 05/05/23 21:45 History of Present Illness: 78-year-old female presents emerged part with complaints of headache and unusually high blood pressure with a systolic in the 200s. She states she did take clonidine 0.1 mg to try to lower her blood pressure she states the clonidine was a rescue medication that her primary care provider prescribed to her over a year ago. She states it was been for several weeks and is unsure if it worked. She states she does have a generalized overall throbbing headache that is 8 out of 10 and has no idea why her blood pressure would be that high. She is accompanied by her sons who are in the exam room with her and they state that she salts her food a little too much. The patient denies chest pain dizziness or lightheaded feeling at present. Review of Systems General: Reports: 10 or more systems reviewed and unremarkable except in HPI and below Neuro: Reports: headache(s) PFSH ED PFSH: Medical History Osteoporosis Acne rosacea, erythematous telangiectatic type Surgical History History of hysterectomy kept ovaries History of left knee surgery Family History Father Chronic kidney disease (CKD) CAD (coronary artery disease) Denies family history of Diabetes Dementia Hypertension Stroke Social History Smoking and tobacco/nicotine status: never used tobacco/nicotine Alcohol intake: never Substance/Drug Use: never Lives independently: Yes Household members: children Marital status: / Number of children: 3 Current occupational status: retired Physical Exam Narrative: EXAM NARRATIVE: Constitutional: the patient appears well nourished and with normal development. Vital signs reviewed as documented. HENMT: Normocephalic, atraumatic. Extermal ears with normal appearance without drainage. Nose without drainage, normal appearance. Mucus membranes moist. Neck is supple, No jugular venous distension, trachea is midline, no appreciable carotid bruits. No lymphadenopathy. No meningeal signs. Flexion, extension and lateral rotation is without pain. Eyes: Pupils are equal, round, reactive to light and accommodation. No scleral icterus. Extra-ocular movement are intact. Thorax is symmetrical and with equal rise and fall with respirations. Resp: Lungs are clear to auscultation. No wheezes, rales, crackles or ronchi at present. Cardio: Regular rate and rhythm. Positive S1, S2. No appreciable murmurs, rubs or gallops. GI: Abdominal exam reveals normal bowel sounds to all quadrants. No organomegaly. No obvious palpable masses noted. No hepatomegally appreciated. Soft, nontender to palpation. Extremity: Extremities are non-edematous and both femoral and pedal pulses are 2+ and equal bilaterally. Moves all extremities well, sensation in all extremities. Neuro: Alert and oriented x4, person, place, time and situation. Cranial nerves II through XII are grossly intact, there is no focal neurological deficits that I can appreciate at present. Motor strength in the upper and lower extremities are equal and bilateral 5/5. Psych: Cooperative, calm, normal thought process, appropriate judgment. Skin: No lesions, rashes. No gross abnormalities noted. Back: Symmetrical, no obvious deformity, No CVA tenderness Course Vital Signs: Vital signs: Vital Signs Temperature 97.4 F L 05/05/23 21:49 Pulse Rate 64 05/06/23 00:46 Respiratory Rate 15 05/06/23 00:46 Blood Pressure 130/77 05/06/23 00:46 Pulse Oximetry 94 05/06/23 00:46 Oxygen Delivery Me thod Room Air 05/05/23 21:49 MDM - Arrhythmia/Palpitations Medical Decision Making Physical exam completed and documented I will provide the patient by mouth clonidine and also will provide her written prescriptions for clonidine. Medical Records I reviewed the patient's medical records. No radiology studies performed this visit Discharge Plan Discharge Patient Disposition: Home Clinical Impression: Hypertension, uncontrolled, Headache Condition: Stable Prescriptions: No Action ofloxacin 0.3 % drops 2 drp otic (ear) QID 7 Days Qty: 10 0RF Rx Instructions: place in affected ear amlodipine 5 mg tablet 5 mg PO .every afternoon Qty: 30 0RF clonidine HCl 0.1 mg tablet 0.1 mg PO BID PRN (Reason: hypertensive emergency) Qty: 20 0RF metoprolol succinate 25 mg tablet extended release 24 hr 25 mg PO DAILY Qty: 30 0RF alendronate 70 mg tablet See Rx Instructions .ROUTE .COMPLEX Qty: 12 3RF Rx Instructions: 70 mg orally one time a week Discharge Orders: Discharge ED (Routine); Ordered 05/06/23 Ordered By: Quinn Paredes Referrals: Eduarda Pagan MD [Primary Care Provider] - Discharge Diet: Advance as tolerated Discharge Activity: Resume usual activity Patient Instructions: Opioid Safety, Pain Management Activity Restrictions/Additional Instructions: Activity Restrictions/Additional Instructions: Thank you for choosing [facility] for your healthcare needs today. Please realize that you were seen in the Emergency Department and that we are providing you with an emergency medical screening exam and this may not be a complete and all inclusive of all the testing and or medical work-up that you may need to determine your ailment or severity of your illness. It is very important that you follow-up as instructed with your Primary care provider or Specialist for additional evaluation and to discuss your medical treatment plan. You may return to the Emergency Department should you have concerns or if your condition changes or worsens in any way. Coding Level of Care Code ED Healthcare Marketer for Trev Sheppard
[2023-05-05 23:05] VITALS: BP 205/110
[2023-05-05] MEDS: cloNIDine 0.1 mg Tablet 0.2 MG PO (23:05)
[2023-05-05 23:17] VITALS: BP 189/100; PULSE 79; RESP 27; O2SAT 98
[2023-05-06] VITALS: BP 158/88; PULSE 69; RESP 19; O2SAT 94
[2023-05-06 00:46] VITALS: BP 130/77; PULSE 64; RESP 15; O2SAT 94
== END 2023-05-06 01:07 | disposition home or self-care (01) ==
PROVIDERS: Emergency Provider Internal Medicine; PCP Family Medicine
DX: R51.9 Headache, unspecified (principal); I10 Essential (primary) hypertension
CPT/HCPCS: 93005; 99283

== ENCOUNTER → 2023-05-09 12:31 | Outpatient (BNVA) | payer MEDICARE, OTHER, SELFPAY | PROVIDERS: PCP Family Medicine; Visit Provider Family Medicine | DX: I10 Essential (primary) hypertension (principal) | CPT/HCPCS: 80048 ==

== ENCOUNTER → 2023-05-26 12:29 | Outpatient (BNVA) | payer MEDICARE, OTHER, SELFPAY | PROVIDERS: PCP Family Medicine; Visit Provider Family Medicine | DX: R00.2 Palpitations (principal) | CPT/HCPCS: 80048; 83735; 84443 ==

== ENCOUNTER 2023-06-15 08:44 | Outpatient (CLI) | payer MEDICARE, OTHER, SELFPAY ==
--- NOTE | 2023-06-15 | ECG_ITS ---
[facility] Test Date: 2023-06-15 Pat Name: Bette Dawson Department: Room: Gender: Female Corporate Law Specialist: : 1945 Requested By: Eduarda Pagan Order Number: [id number] Joana MD: Richard Lee M.D. Interpretive Statements NAME OF STUDY: EXERCISE SESTAMIBI STRESS TEST INDICATION: Chest Pain; Spiking BP PROCEDURE: The baseline electrocardiogram showed [normal sinus rhythm with some nonspecific T wave changes. Incomplete right bundle branch block pattern.. At the baseline, the patient's blood pressure was 163/88 mm Hg with a heart rate of 96. The patient exercised for 6 on a standard Rodrigo protocol. Patient attained a maximum heart rate of 132 beats per minute(91% of the maximum predicted heart rate) with a blood pressure at the peak exercise of 145/88 mm Hg. The EKG at the peak exercise revealed no significant changes. Patient did not have any chest pain or any significant arrhythmis with the exercise Sestamibi was injected 1 minute prior to the peak exercise During the recovery phase, there were no new changes. Blood pressure at the end of the recovery phase was 176/87 mm Hg with a heart rate of 94 per minute. CONCLUSION: 1. No significant EKG changes with the treadmill exercise 2. No exercise-induced chest pain or cardiac arrhythmia 3. Slightly impaired exercise tolerance, attained a maximum of 7.0 METs 4. Sestamibi/Sestamibi perfusion results pending; see separate report. Electronically Signed On 06-16-2023 9:56:58 WEEDER by Richard Lee M.D. [id number]
[2023-06-15 09:05] VITALS: BMI 18.7
--- NOTE | 2023-06-15 09:07 | NMCV_ITS ---
NM kiko perf SPECT r/s* [id number] Bette Dawson Age: 78 Gender: F : 1945 Exam Date: 06/15/2023 10:03 Ordering Phys: Eduarda Pagan MD Technologist: MUNIR Ram Exam Location: [facility] Indications: CP STRESS TEST Please see separate stress test report in [facility] for full findings IMAGE PROTOCOL Rest/Stress 1 Exercise Day Radiopharmaceutical Dose (mCi) Administration Site Administered by Rest: Tc-99m 10.6 IV MUNIR Ram Sestamibi Stress:Tc-99m 32.8 IV MUNIR Ram Sestamibi Rest: 15-Jun-2023 Discovery 630 Stress: 15-Jun-2023 Discovery 630 Radiopharmaceutical was injected at 89 % maximum heart rate. Images obtained in supine and prone position. SPECT RESULTS Technical Quality: Good Raw Data Analysis: Normal Image Corrections: No attenuation or motion correction applied Summed Stress Score: 0 Summed Rest Score: 0 Summed Difference Score: 0 PERFUSION FINDINGS Fairly uniform myocardial tracer uptake with no significant perfusion abnormalities FUNCTIONAL RESULTS (calculated via Gated SPECT) Stress Image LV EF (%): 90 Stress EDV (mL):52 TID: 1.04 Stress ESV (mL):5 FUNCTIONAL FINDINGS: Segmental wall motion analysis revealing no gross wall motion abnormalities IMPRESSIONS 1. Unremarkable Myocardial perfusion imaging 2. Normal ejection fraction of 90%. 3. LV wall motion analysis revealing no gross wall motion abnormalities. 4. Normal LV volume Low probability for coronary ischemia, based on the above findings No similar previous studies are available for comparison Dr Richard Lee MD [facility] (Electronically Signed) Final Date: 15 June 2023 12:57 S
[2023-06-15 11:10] VITALS: BP 172/84; PULSE 81
== END 2023-06-15 08:45 | disposition home or self-care (01) ==
PROVIDERS: PCP Family Medicine; Visit Provider Family Medicine
DX: R07.9 Chest pain, unspecified (principal); R03.0 Elevated blood-pressure reading, without diagnosis of hypertension
CPT/HCPCS: 36415; 78452; 80048; 83735; 84443; 93017; A9500

== ENCOUNTER → 2023-07-10 14:15 | Outpatient (BNVA) | payer MEDICARE, OTHER, SELFPAY | PROVIDERS: PCP Family Medicine; Referring Provider Family Medicine; Visit Provider Internal Medicine Cardiovascular Disease | DX: I10 Essential (primary) hypertension (principal); R00.2 Palpitations; I49.3 Ventricular premature depolarization; R09.89 Other specified symptoms and signs involving the circulatory and respiratory systems; R07.89 Other chest pain | CPT/HCPCS: 99204 ==

== ENCOUNTER 2023-07-20 07:15 | Outpatient (CLI) | payer MEDICARE, OTHER, SELFPAY ==
--- NOTE | 2023-07-20 07:30 | USCV_ITS ---
Bette Dawson Age: 78 Gender: F : 1945 Exam Date: 07/20/2023 07:20 Ordering Phys: Richard Lee MD ([email or web address]) Technologist: HERLINDA Exam [place] [facility] [place] Indication: HTN. Bruit Aortic Velocity @ SMA (cm/s) 79.7 RIGHT KIDNEY LEFT KIDNEY Velocity (cm/s) Velocity (cm/s) Sys/Prasad Sys/Prasad Resistive Index Resistive Index 71.0 / 20.3 0.71 Proximal Renal Artery 104.2 / 38.3 0.63 60.1 / 20.3 0.66 Mid Renal Artery 78.5 / 32.8 0.58 71.0 / 27.5 0.61 Distal Renal Artery 111.4 / 44.4 0.60 85.5 / 29.3 0.66 Hilar 43.2 / 18.2 0.58 37.1 / 11.5 0.69 Upper Pole 29.8 / 9.5 0.68 39.2 / 12.9 0.67 Mid Pole 22.2 / 8.0 0.64 19.6 / 6.5 0.67 Lower Pole 25.2 / 8.0 0.68 0.90 Renal Aortic Ratio 1.40 Accleration Index (cm/sec2) 724.50 Hilar 296.60 241.60 Upper Pole 145.10 202.00 Mid Pole 150.40 101.20 Lower Pole 119.41 93.0 Kidney Length (mm) 90.0 FINDINGS No comparison. No evidence of abdominal aortic aneurysm. There is no evidence of hemodynamically significant right renal artery stenosis. There is no evidence of hemodynamically significant left renal artery stenosis. CONCLUSIONS No evidence of hemodynamically significant renal artery stenosis bilaterally. Dr. Meg Soler DO (Electronically Signed) Final Date: 20 July 2023 13:18 S
--- NOTE | 2023-07-20 08:15 | USCV_ITS ---
Bette Dawson Age: 78 Gender: F : 1945 Exam Date: 07/20/2023 06:45 Ordering Phys: Richard Lee MD ([email or web address]) Technologist: JIM Exam Location: [facility] [place] Indication: HYPERTENSION HEART DISEASE BP: 151 / 95 HR: 74 Rhythm: Sinus Technical Quality: Adequate MEASUREMENTS (Male / Female) Normal Values 2D ECHO LV Diastolic Diameter PLAX 3.8 cm 4.2 - 5.9 / 3.9 - 5.3 cm IVS Diastolic Thickness 0.9 cm 0.6 - 1.0 / 0.6 - 0.9 cm IVS Systolic Thickness 2.1 cm LVPW Diastolic Thickness 1.4 cm 0.6 - 1.0 / 0.6 - 0.9 cm LVPW Systolic Thickness 2.5 cm LVOT Diameter 2.0 cm LV Ejection Fraction 2D Teich 72.4 % LV Ejection Fraction MOD 2C 55.1 % LV Ejection Fraction 2C AL 0.0 % LA Diameter 2.1 cm RA Systolic Volume 4C AL 20.4 ml RA Systolic Volume 4C MOD 19.2 ml Aorta at Sinotubular Diameter 2.0 cm IVC Diameter 1.1 cm M-MODE LA Ao Ratio MM 0.8 AV Cusp Separation MM 1.6 cm DOPPLER AV Peak Velocity 137.0 cm/s LVOT Peak Velocity 124.0 cm/s AV Area Cont Eq vti 2.6 cm squared AV Area Cont Eq pk 2.8 cm squared MV Peak Velocity 115.0 cm/s MV Area PHT 3.1 cm squared Mitral E to A Ratio 0.8 TR Peak Velocity 158.0 cm/s TR Peak Gradient 10.0 mmHg TR Mean Velocity 130.0 cm/s TR Mean Gradient 7.3 mmHg TR Velocity Time Integral 51.1 cm TV Peak E Velocity 41.0 cm/s Right Atrial Pressure 3.0 mmHg Pulmonary Artery Systolic Pressu 13.0 mmHg PV Peak Velocity 91.0 cm/s RV Ejection Time 0.3 s FINDINGS Left Ventricle Normal left ventricular size and systolic function, EF 55%.no regional wall motion abnormalities. Grade I/IV diastolic dysfunction (abnormal relaxation filling pattern), normal to mildly elevated filling pressures. Right Ventricle The right ventricle is normal in size and function. Right Atrium The right atrium is normal in size. Left Atrium The left atrium is normal in size. Mitral Valve No gross abnormalities noted Aortic Valve No gross abnormalities Tricuspid Valve No gross abnormalities Pulmonic Valve No gross abnormalities noted Pericardium Normal pericardium without effusion. Aorta Normal ascending aorta dimension. IVC The inferior vena cava appears normal. CONCLUSIONS Normal left ventricular size and systolic function, EF 55%.no regional wall motion abnormalities. Grade I/IV diastolic dysfunction (abnormal relaxation filling pattern), normal to mildly elevated filling pressures. Normal cardiac chamber sizes. No significant stenotic or valvular lesions There is no pericardial effusion. There are no intracardiac masses. Compared to the study from 08/27/2019,, there may not be a significant change Dr Richard Lee MD [facility] (Electronically Signed) Final Date: 23 July 2023 17:43 S
== END 2023-07-20 07:16 | disposition home or self-care (01) ==
LOC: RAD 07:15
PROVIDERS: PCP Family Medicine; Visit Provider Internal Medicine Cardiovascular Disease
DX: R06.09 Other forms of dyspnea (principal); I10 Essential (primary) hypertension
CPT/HCPCS: 93306; 93975

== ENCOUNTER → 2023-07-29 10:25 | Outpatient (BNVA) | payer MEDICARE, OTHER, SELFPAY | PROVIDERS: PCP Family Medicine; Visit Provider Emergency Medicine | DX: N39.0 Urinary tract infection, site not specified (principal); R39.9 Unspecified symptoms and signs involving the genitourinary system | CPT/HCPCS: 81000; 87077; 87086; 87184 ==

== ENCOUNTER 2023-09-28 10:46 | Outpatient (CLI) | payer MEDICARE, OTHER, SELFPAY ==
--- NOTE | 2023-09-28 10:50 | MM_ITS ---
WS: [id number] BILATERAL SCREENING DIGITAL TOMOSYNTHESIS MAMMOGRAM WITH CAD HISTORY: SCREENING COMPARISON: 02/18/2022, 02/10/2021 Bilateral CC and MLO views with tomosynthesis and synthetic mammography submitted. Computer aided det ection analyzed. Breast composition: The breasts are extremely dense, which lowers the sensitivity of mammography. No suspicious masses, microcalcifications or architectural distortion. Benign calcifications in each yuridia ast. MM/[place] [id number] IMPRESSION: BI-RADS: 2-Benign FOLLOW UP: 1 Year Follow-up
== END 2023-09-28 10:47 | disposition home or self-care (01) ==
LOC: RAD 10:47
PROVIDERS: PCP Family Medicine; Visit Provider Family Medicine
DX: Z12.31 Encounter for screening mammogram for malignant neoplasm of breast (principal)
CPT/HCPCS: 77063; 77067

== ENCOUNTER → 2023-12-18 10:32 | Outpatient (BNVA) | payer MEDICARE, OTHER, SELFPAY | PROVIDERS: PCP Family Medicine; Visit Provider Family Medicine | DX: Z00.00 Encounter for general adult medical examination without abnormal findings (principal); I10 Essential (primary) hypertension | CPT/HCPCS: 80053; 80061; 85025 ==

== ENCOUNTER → 2023-12-19 15:35 | Outpatient (BNVA) | payer MEDICARE, OTHER, SELFPAY | PROVIDERS: PCP Family Medicine; Visit Provider Internal Medicine Cardiovascular Disease | DX: I10 Essential (primary) hypertension (principal); I49.3 Ventricular premature depolarization | CPT/HCPCS: 99214 ==

== ENCOUNTER 2024-01-04 13:57 | Outpatient (CLI) | payer MEDICARE, OTHER, SELFPAY ==
--- NOTE | 2024-01-04 14:00 | XR_ITS ---
WS: [id number] SCREENING DEXA SCAN goAct CLINICAL INFORMATION: osteoporosis f/u, fosamax x 2 years COMPARISON: 09/14/2021 FINDINGS: The L1-L4 bone mineral density measures 0.823 g/cm2. This corresponds to a T score score of -3.0 and Z score of -0.8. Left femoral neck bone mineral density measures 0.608 g/cm2. This corresponds to a T score of -3.2 an d Z score of -1.0. Right femoral neck bone mineral density measures 0.652 g/cm2. This corresponds to a T score -2.8of an d Z score of -0.7. Mean femoral neck bone mineral density measures 0.630 g/cm2. This corresponds to a T score of -3.0 an d Z score of -0.9. XR/XR DEXA axial skeleton* [id number] IMPRESSION: Osteoporosis lumbar spine. Osteoporosis femoral necks. Patient's FRAX calculated 10 year probability for major osteoporotic fracture i s 25.3% and osteoporotic hip fracture is 12.5%. Bone mineral density lumbar spine increased 6.5% Bone mineral density femoral necks increased 4.0%
== END 2024-01-04 13:58 | disposition home or self-care (01) ==
LOC: RAD 13:59
PROVIDERS: PCP Family Medicine; Visit Provider Family Medicine
DX: M81.0 Age-related osteoporosis without current pathological fracture (principal); Z00.00 Encounter for general adult medical examination without abnormal findings
CPT/HCPCS: 77080

== ENCOUNTER → 2024-06-14 12:33 | Outpatient (BNVA) | payer MEDICARE, OTHER, SELFPAY | PROVIDERS: PCP Family Medicine; Visit Provider Family Medicine | DX: R21 Rash and other nonspecific skin eruption (principal) | CPT/HCPCS: 80053; 85025; 85651; 86140 ==

== ENCOUNTER 2024-06-27 00:50 | Emergency (ER) | payer MEDICARE, OTHER, SELFPAY ==
[2024-06-27 00:59] VITALS: BP 171/93; PULSE 70; RESP 17; TEMP 36.4; O2SAT 100; BMI 19.1
--- NOTE | 2024-06-27 01:10 | ECG_ITS ---
[facility] Date: 2024-06-27 Pat Name: Bette Dawson Department: Room: Gender: Female Database Admin: : 1945 Requested By: Len Fermin Order Number: [id number] Joana MD: Holland Olea M.D. Measurements Intervals [place] Rate: 66 P: 80 [place]: 163 QRS: 30 QRSD: 89 T: 69 QT: 386 QTc: 405 Interpretive Statements SINUS RHYTHM INDETERMINATE AXIS POSSIBLE RIGHT VENTRICULAR CONDUCTION DELAY [RSR (QR) IN V1/V2] Compared to ECG 05/05/2023 21:56:35 No significant changes Electronically Signed On 06-27-2024 21:52:28 GANDY DANCER by Holland Olea M.D. [id number]
--- NOTE | 2024-06-27 01:31 | W.ED.GENADLT ---
HPI - General Adult General: Chief complaint: Headache Stated complaint: High BP Time Seen by Provider: 06/27/24 01:11 History of Present Illness: Patient presents with elevated blood pressure. She said over the last couple weeks that she is seeing her primary care doctor it has been elevated off and on where she has to take clonidine throughout the day to if to drop. When it is high she has some chest pressure and a headache. Patient did take 2 clonidine today. Upon waking this morning her blood pressure was in the 90s however by about 4 PM this afternoon it was in the 190s. Patient took 1 clonidine at lower down at about the 120s for a couple hours and a couple hours later jump back up to the 190s took another clonidine before she came to the ER. Upon arrival in ER blood pressure is 171/93. She is not having any chest pain or headache at this time. She has appointment with her senior data scientist in a couple days. Related Data Previous Rx's ?Medication ?Instructions ?Recorded clonidine HCl 0.1 mg tablet 0.1 mg PO BID PRN hypertensive 08/27/23 emergency #60 tabs amlodipine 5 mg tablet 2.5 mg (1/2 x 5 mg) PO DAILY #90 12/19/23 tabs carvedilol 12.5 mg tablet 12.5 mg PO .1QAM 2QPM #270 tabs 12/19/23 losartan 100 mg tablet 100 mg PO DAILY #90 tabs 12/19/23 alendronate 70 mg tablet See Rx Instructions .Route 03/18/24 .COMPLEX #12 tabs Allergies Allergy/AdvReac Type Severity Reaction Status Date / Time No Known Allergies Allergy Verified 06/27/24 01:09 Review of Systems General: Reports: 10 or more systems reviewed and unremarkable except in HPI and below PFSH ED PFSH: Medical History Osteoporosis Acne rosacea, erythematous telangiectatic type Surgical History History of hysterectomy kept ovaries History of left knee surgery Family History Father Chronic kidney disease (CKD) CAD (coronary artery disease) Denies family history of Diabetes Dementia Hypertension Stroke Social History (Reviewed 06/27/24 @ 01:33 by ZULAY Wetzel Smoking and tobacco/nicotine status: never used tobacco/nicotine Alcohol intake: never Substance/Drug Use: never Lives independently: Yes Household members: children Marital status: / Number of children: 3 Current occupational status: retired Physical Exam Const: COMMON NORMALS: no acute distress, average body habitus, patient oriented x3, no limitations, healthy appearing, alert and well nourished Neck/C-Spine: COMMON NORMALS: no JVD Chest: COMMONS NORMALS: normal inspection of the chest and normal palpation of entire chest wall Resp: COMMON NORMALS: normal respiratory effort, No retractions, No use of accessory muscles and clear to auscultation bilaterally AUSCULTATION: clear to auscultation bilaterally Cardio: COMMON NORMALS: no JVD, regular rate, regular rhythm, S1 normal heart sound present, S2 normal heart sound present, No gallops present (Cardio), No clicks present (Cardio), No murmurs present (Cardio) and No rub (Cardio) RATE: regular rate RHYTHM: regular rhythm HEART SOUNDS: S1 normal heart sound present and S2 normal heart sound present GI: COMMON NORMALS: Normal to inspection, nondistended, normoactive bowel sounds present, Soft to palpation, non-tender, No hepatosplenomegaly present and no masses PALPATION: Yes Soft to palpation and Yes No hepatosplenomegaly present Neuro: COMMON NORMALS: patient oriented x3 SENSORIUM/ORIENTATION: Yes alert Course Vital Signs: Vital signs: Vital Signs Temperature 97.5 F L 06/27/24 00:59 Pulse Rate 65 06/27/24 01:50 Respiratory Rate 16 06/27/24 01:39 Blood Pressure 150/87 06/27/24 01:50 Pulse Oximetry 99 06/27/24 01:50 Oxygen Delivery Me thod Room Air 06/27/24 00:59 MDM - General Adult Medical Decision Making Patient says she feels better upon arrival to the ER. She does not really want anything done. She already had an EKG that showed normal sinus rhythm. Blood pressure upon arrival was 171/93. Her headache and chest pressure have resolved. Will recheck her blood pressure and if it is more normalized we will discharge her home. She has clonidine to take as needed. All radiology interpretation(s) finalized by discharge Discharge Plan Discharge Patient Disposition: Home Clinical Impression: Hypertension Qualifiers: Hypertension type: primary hypertension Qualified Code(s): I10 - Essential (primary) hypertension Condition: Stable Prescriptions: No Action carvedilol 12.5 mg tablet 12.5 mg PO .1QAM 2QPM Qty: 270 3RF Rx Instructions: 1 tab in AM and 2 tabs at hs amlodipine 5 mg tablet 2.5 mg PO DAILY Qty: 90 3RF losartan 100 mg tablet 100 mg PO DAILY Qty: 90 3RF clonidine HCl 0.1 mg tablet 0.1 mg PO BID PRN (Reason: hypertensive emergency) Qty: 60 0RF alendronate 70 mg tablet See Rx Instructions .ROUTE .COMPLEX Qty: 12 3RF Dose Instruction: TAKE 1 TABLET BY MOUTH ONE TIME A WEEK Rx Instructions: TAKE 1 TABLET BY MOUTH ONE TIME A WEEK Discharge Orders: Discharge ED (Routine); Ordered 06/27/24 Ordered By: Len Fermin Referrals: Eduarda Pagan MD [Primary Care Provider] - 1 week Patient Instructions: Hypertension (ED) Activity Restrictions/Additional Instructions: Please keep taking her blood pressure multiple times throughout the day and keep a blood pressure log and take it to your next cardiology appointment in family practice appointment. Please continue to use your clonidine as directed your blood pressure is high. If your chest pain returns worsens or changes please feel free to return to the ER as your condition may change. Print Language: Cameroonian Coding Level of Care Code ED Truck Jumper for Trev Sheppard
[2024-06-27 01:39] VITALS: BP 150/86; PULSE 65; RESP 16; O2SAT 99
[2024-06-27 01:50] VITALS: BP 150/87; PULSE 65; O2SAT 99
== END 2024-06-27 01:53 | disposition home or self-care (01) ==
PROVIDERS: Emergency Provider Emergency Medicine; PCP Family Medicine
DX: I10 Essential (primary) hypertension (principal)
CPT/HCPCS: 93005; 99283

== ENCOUNTER → 2024-07-02 09:37 | Outpatient (BNVA) | payer MEDICARE, OTHER, SELFPAY | PROVIDERS: PCP Family Medicine; Visit Provider Nurse Practitioner Family | DX: I10 Essential (primary) hypertension (principal) | CPT/HCPCS: 99213 ==

== ENCOUNTER → 2024-08-06 09:05 | Outpatient (BNVA) | payer MEDICARE, OTHER, SELFPAY | PROVIDERS: PCP Family Medicine; Visit Provider Nurse Practitioner Family | DX: I10 Essential (primary) hypertension (principal); R00.2 Palpitations | CPT/HCPCS: 99213 ==

== ENCOUNTER 2024-12-17 11:07 | Inpatient (IN) | payer MEDICARE, OTHER, SELFPAY ==
[2024-12-17] VITALS (77 sets, daily range): BP systolic 130–206; BP diastolic 72–99; PULSE 63–88; RESP 13–25; TEMP 36.4–36.8; O2SAT 77–100; BMI 20.2; BMI 28.3
--- NOTE | 2024-12-17 11:11 | CT_ITS ---
WS: [id number] CT HEAD TECHNIQUE: Noncontrast CT of the head obtained from the skullbase to the vertex. CLINICAL INFORMATION: Symptoms of acute stroke COMPARISON: MRI 08/28/[address] 2017 DLP: [address] scans at [facility] use at least one of these dose optimization techniques: automated exposure control; mA and/or kV adjustment per patient size (includes targeted exams where dose is matched to clinical indication); or iterative reconstruction. FINDINGS: No evidence of intracranial hemorrhage or mass effect. Ventricular system and basal cisterns are patent. Mild small vessel changes with mild parenchymal volume loss. No extra-axial fluid collections. No evidence of mass or mass effect. Normal mathias-white differentiation. Vascular calcification Paranasal sinuses and mastoid air cells are well aerated. .Normal visualized soft tissues. CT/CT head thrombolytic [id number] IMPRESSION: 1. No evidence of intracranial hemorrhage or mass effect. 2. Vascular calcification 3. No acute intracranial findings. Notified Evelyne Coreas MD at 12/17/2024 11:27 AM.
--- NOTE | 2024-12-17 11:11 | ECG_ITS ---
[facility]: 2024-12-17 Pat Name: Bette Dawson Department: Room: Gender: Female Dispatch Manager: : 1945 Requested By: Evelyne Coreas Order Number: [id number] Joana MD: Holland Olea M.D. Measurements Intervals Bath Rate: 69 P: 67 UT: 146 QRS: 55 QRSD: 94 T: 51 QT: 399 QTc: 428 Interpretive Statements SINUS RHYTHM INCOMPLETE RIGHT BUNDLE BRANCH BLOCK [90+ ms QRS DURATION, TERMINAL R IN V1/V2, 40+ ms S IN I/aVL/V4/V5/V6] SEPTAL MYOCARDIAL INFARCTION , OF INDETERMINATE AGE [40+ ms Q WAVE IN V1/V2] Compared to ECG 06/27/2024 01:10:15 Incomplete right bundle-branch block now present Myocardial infarct finding now present Indeterminate axis no longer present Electronically Signed On 12-19-2024 10:26:25 CDT by Holland Olea M.D. [email or web address]
--- NOTE | 2024-12-17 11:12 | ED_ITS ---
HPI - Neuro Symptoms/Deficit 2 General: Chief Complaint: Dizziness Stated Complaint: vertigo Time Seen by Provider: 12/17/24 11:09 Source: patient and EMS Mode of arrival: EMS Limitations: no limitations History of Present Illness: 79-year-old female states she had sudden onset of dizziness at 1030. States she felt lightheaded felt like she is going to vomit states she is having a hard time ambulating she feels extremely dizzy with any movement. 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 Associated symptoms: Reports vertigo; Deny chest pain, headache(s), nausea or vomiting Related Data Previous Rx's ?Medication ?Instructions ?Recorded alendronate 70 mg tablet See Rx Instructions .Route 1 .COMPLEX #12 tabs clonidine HCl 0.1 mg tablet 0.1 mg PO BID PRN hyperten sive 07/24/24 emergency #60 tabs losartan 100 mg tablet 100 mg PO DAILY #90 tabs amlodipine 2.5 mg tablet 2.5 mg PO DAILY #180 tabs carvedilol 12.5 mg tablet 12.5 mg PO .1QAM 2QPM #270 t abs 12/10/24 Allergies Allergy/AdvReac Type Severity Reaction Status Date / Time No Known Allergies Allergy Verified 12/02/24 15:02 Review of Systems 2 Const: Denies: fever(s), chills, body aches or change in appetite Eyes: Denies: blurry vision or eye discomfort ENMT: Denies: throat pain or dental pain Card: Denies: chest pain Resp: Denies: dyspnea GI: Denies: abdominal pain, nausea, vomiting or diarrhea Musc: Denies: neck pain or back pain Skin/Breast: Denies: rash Neuro: Reports: vertigo; Denies: headache(s) PFSH ED 2 PFSH: Medical History (Updated 12/17/24 @ 12:07 by Evelyne Coreas MD) Osteoporosis Acne rosacea, erythematous telangiectatic type Surgical History History of hysterectomy kept ovaries History of left knee surgery Family History Father Chronic kidney disease (CKD) CAD (coronary artery disease) Denies family history of Diabetes Dementia Hypertension Stroke Social History Smoking and tobacco/nicotine status: never used tobacco/nicotine Alcohol intake: never Substance/Drug Use: never Lives independently: Yes Household members: children Marital status: / Number of children: 3 Current occupational status: retired NIH stroke score 2 NIHSS: Level Of Consciousness - 1a: 0 Level Of Consciousness Questions - 1b: Both Correct Level Of Consciousness Commands - 1c: Both Correct Best Gaze - 2: Normal Visual Armando - 3: No Visual Loss Facial Palsy - 4: N ormal Motor Arm Right - 5: No Drift Motor Arm Left - 5: No Drift Motor Leg Right - 6: No Drift Motor Leg Left - 6: No Drift Limb Ataxia - 7: P resent In One Limb Sensory - 8: Normal Best Language - 9: No Aphasia D ysarthia - 10: Mild/Moderate Dysarthia Extinction And Inattention - 11: 0 Score: Total Score: 2 Physical Exam 2 Const: COMMON NORMALS: patient oriented x3 HENMT: COMMON NORMALS: normocephalic and atraumatic HEAD & SCALP: n ormocephalic and atraumatic Eye: COMMON NORMALS: Equal, round and reactive pupils present and EOMs intact bilaterally PUPIL: Yes Equal, round and reactive pupils present Neck/C-Spine: COMMON NORMALS: full ROM and supple Chest: COMMONS NORMALS: normal inspection of the chest and normal palpation of entire chest wall Resp: COMMON NORMALS: normal respiratory effort, No retractions, No use of accessory muscles and clear to auscultation bilaterally AUSCULTATION: clear to auscultation bilaterally Cardio: COMMON NORMALS: regular rate, regular rhythm and No murmurs present (Cardio) RATE: regular rate RHYTHM: regular rhythm GI: COMMON NORMALS: Normal to inspection, nondistended, normoactive bowel sounds present, Soft to palpation, non-tender and no masses PALPATION: Yes Soft to palpation Extremity: COMMON NORMALS: normal to inspection and full ROM Neuro: COMMON NORMALS: patient oriented x3 and moves all extremities C RANIAL NERVES: Yes CN normal except as noted MOTOR EXAM: 5/5 motor strength present throughout OTHER: slight slurred speech, nystagmus looking to right Psych: COMMON NORMALS: mental status grossly normal, Normal thought process present and cooperative THOUGHT PROCESS: Normal thought process present Skin: COMMON NORMALS: no rashes or lesions noted and no wounds GENERAL SKIN EXAM: no rashes or lesions noted Course 2 Vital Signs: Vital signs: Vital Signs Temperature 97.6 F 12/17/24 11:08 Pulse Rate 70 12/17/24 11:54 Respiratory Rate 14 12/17/24 11:54 Blood Pressure 173/97 12/17/24 11:54 Pulse Oximetry 100 12/17/24 11:08 Oxygen Delivery Me thod Room Air 12/17/24 11:08 MDM - Neuro Symptoms/Deficit Medical Decision Making Patient presents for sudden onset of vertigo possibly posterior stroke she is evaluated by neurology did give her TNKase did have to treat her blood pressure before administering the TNKase TNKase was given at 1153 will admit at this time Medical Records I reviewed the patient's medical records. Lab Data I reviewed the patient's lab results. 12/17/24 10:56 12/17/24 10:[address] 12/17/24 11:11 IMPRESSION: 1. No evidence of intracranial hemorrhage or mass effect. 2. Vascular calcification 3. No acute intracranial findings. Notified Evelyne Coreas MD at 12/17/2024 11:27 AM. Laboratory Results WBC 7.73 10^3/uL (3.29-11.43) 12/17/24 10:56 RBC 4.54 10^6/uL (3.85-5.65) 12/17/24 10:56 Hgb 13.50 g/dL (11.27-16.99) 12/17/24 10:56 Hct 38.5 % (36-47) 12/17/24 10:56 MCV 84.8 fl (85-98) L 12/17/24 10:56 MCH 29.7 pg (27-33) 12/17/24 10:56 MCHC 35.1 g/dL (30-55) 12/17/24 10:56 RDW 13.1 % (12.1-15.1) 12/17/24 10:56 Plt Count 378 10^3/cmm (157-399) 12/17/24 10:56 MPV 8.6 fL (7.4-10.4) 12/17/24 10:56 Neut % (Auto) 65.9 % 12/17/24 10:56 Lymph % (Auto) 18.6 % 12/17/24 10:56 Navarro % (Auto) 10.7 % 12/17/24 10:56 Eos % (Auto) 3.8 % 12/17/24 10:56 Baso % (Auto) 0.5 % 12/17/24 10:56 Neut # (Auto) 5.09 10^3/uL (1.8-7.7) 12/17/24 10:56 Lymph # (Auto) 1.4 10^3/uL (0.8-4.8) 12/17/24 10:56 Navarro # (Auto) 0.8 10^3/uL (0.2-0.9) 12/17/24 10:56 Eos # (Auto) 0.3 10^3/uL (0.0-0.8) 12/17/24 10:56 Baso # (Auto) 0.0 10^3/uL (0.0-0.1) 12/17/24 10:56 Nucleated RBC % (auto) 0 % 12/17/24 10:56 Nucleated RBCs # 0.0 /100WBC 12/17/24 10:56 PT 13.30 SECONDS (12.1-14.9) 12/17/24 10:56 INR 0.95 (0.8-1.2) 12/17/24 10:56 APTT 31.2 SECONDS (23.9-36.7) 12/17/24 10:56 Sodium 127 mmol/L (136-145) L 12/17/24 10:56 Potassium 4.5 mmol/L (3.5-5.1) 12/17/24 10:56 Chloride 88 mmol/L (98-107) L 12/17/24 10:56 Carbon Dioxide 23 mmol/L (22-29) 12/17/24 10:56 Anion Gap 20.5 (5-19) H 12/17/24 10:56 BUN 16 mg/dL (8-23) 12/17/24 10:56 Creatinine 1.0 mg/dL (0.5-0.9) H 12/17/24 10:56 GFR Calculation Not Reportable 12/17/24 10:56 Glucose 129 mg/dL (65-115) H 12/17/24 10:56 POC Glucose 101 mg/dL (70-110) 12/17/24 11:16 Calculated Osmolality 267 mOsm/kg (285-295) L 12/17/24 10:56 Calcium 9.8 mg/dL (8.5-10.5) 12/17/24 10:56 Total Bilirubin 0.4 mg/dL (0.15-1.2) 12/17/24 10:56 AST 26 U/L (0-32) 12/17/24 10:56 ALT 20 U/L (0-33) 12/17/24 10:56 Alkaline Phosphatase 104 U/L (35-105) 12/17/24 10:56 Total Protein 8.0 g/dL (6.6-8.7) 12/17/24 10:56 Albumin 4.8 g/dL (3.5-5.2) 12/17/24 10:56 Globulin 3.2 g/dL (1.3-4.6) 12/17/24 10:56 All radiology interpretation(s) finalized by discharge EKG Data EKG 1: I personally reviewed and interpreted this EKG as follows: EKG interpretation date: 12/17/24 EKG interpretation time: 11:53 Interpretation: nsr hr [address] elevation qrs 94 qtc 417 Critical Care Time 2 Critical Care Time: Critical Care Time: Yes Total Critical Care Time: 35 Attestation: The high probability of a clinically significant, sudden or life threatening deterioration of the patient's neuro system(s) required my full and direct attention, intervention and personal management. The critical care time is as shown. This time is in addition to time spent performing any reported procedures but includes the following: [x] Data and vital sign review and interpretation [x] Patient assessment, examination and intervention [x] Documentation [x] Medication orders and management Discharge Plan Discharge Patient Disposition: Admitted As Inpatient Clinical Impression: Cerebrovascular accident, Vertigo Condition: Stable Coding Level of Care Code ED Kitchen Help Handyman for Trev Sheppard
[2024-12-17 11:20] LABS: Hematocrit 38.5 % (36-47); Hemoglobin 13.50 g/dL (11.27-16.99); Mean Corpuscular HGB Conc 35.1 g/dL (30-55); Mean Corpuscular Hemoglobin 29.7 pg (27-33); Mean Corpuscular Volume 84.8 fl (85-98); Nucleated Red Blood Cells % 0 %; Platelet Count 378 10^3/cmm (157-399); Red Blood Count 4.54 10^6/uL (3.85-5.65); White Blood Count 7.73 10^3/uL (3.29-11.43)
[2024-12-17 11:31] LABS: INR 0.95 (0.8-1.2); Prothrombin Time 13.30 SECONDS (12.1-14.9)
[2024-12-17 11:32] LABS: Partial Thromboplastin Time 31.2 SECONDS (23.9-36.7)
[2024-12-17 11:38] LABS: Alanine Aminotransferase 20 U/L (0-33); Albumin Level 4.8 g/dL (3.5-5.2); Alkaline Phosphatase 104 U/L (35-105); Anion Gap 20.5 (5-19); Aspartate Amino Transferase 26 U/L (0-32); Blood Urea Nitrogen 16 mg/dL (8-23); Calcium 9.8 mg/dL (8.5-10.5); Carbon Dioxide 23 mmol/L (22-29); Chloride 88 mmol/L (98-107); Creatinine Clr Calc Pharmacy 41.8993; Globulin 3.2 g/dL (1.3-4.6); Glucose 129 mg/dL (65-115); Osmolality Calculated 267 mOsm/kg (285-295); Potassium 4.5 mmol/L (3.5-5.1); Sodium 127 mmol/L (136-145); Total Protein 8.0 g/dL (6.6-8.7)
[2024-12-17] MEDS: tenecteplase 50mg Kit (STROKE) 14 MG IVP (11:45)
[2024-12-17] MEDS: labetalol 5 mg/mL SDV 20mL 10 MG IVP ×2 (11:52)
[2024-12-17] MEDS: ondansetron 2 mg/ML SDV 2 mL 4 MG IVP (11:52)
[2024-12-17] MEDS: labetalol 5 mg/mL SDV 20mL 20 MG IVP (11:52)
--- NOTE | 2024-12-17 11:54 | PM.SAN ---
Stroke Alert Activation ED Arrival Date: 12/17/24 ED Arrival Time: 11:08 ED Physican at Bedside: 11:12 Last Known Normal/at Baseline: < 1 hour ago Other Last Known Well Infomation: She was at [facility] when she developed the acute onset of vertigo. She has been nauseated and vomited multiple times. She knew her blood pressure was out of control when she took her clonidine before she came but her blood pressure has been very high since she got here. She has a history of difficult to control hypertension in the past. She never had a stroke. 5 years ago she had transient vertigo and MRI at that time was normal. She is a non-smoker. No previous history of stroke Stroke Alert Activated by: Triage Stroke Alert Activation Time: 11:12 Stroke MD @ Bedside Date: 12/17/24 Stroke MD @ Bedside Time: 11:13 NIH Stroke Scale Time: 11:17 NIH stroke score NIHSS: Level Of Consciousness - 1a: 0 Level Of Consciousness Questions - 1b: Both Correct Level Of Consciousness Commands - 1c: Both Correct Best Gaze - 2: Normal Visual Armando - 3: No Visual Loss Facial Palsy - 4: Normal Motor Arm Right - 5: No Drift Motor Arm Left - 5: No Drift Motor Leg Right - 6: No Drift Motor Leg Left - 6: No Drift Limb Ataxia - 7: Present In One Limb Sensory - 8: Normal Best Language - 9: No Aphasia Dysarthia - 10: Mild/Moderate Dysarthia Extinction And Inattention - 11: 0 Score: Total Score: 2 Stroke Alert Data/Treatment Time to CT of Head: 11:11 CT Results Time: 11:27 CT Impression: Normal Stroke Risk Factors: hypertension tPA Started Time: tPA Started - Time: 11:47 Patient & Family Educated on: Risk Factors, Treament Plan and tPA Risks/Benefits Other Patient & Family Education: Her blood pressure was very high. She received multiple doses of labetalol and finally achieved a treatable blood pressure at 1127 and was given the bolus of TNK after giving informed consent. Patient and her 2 sons were present. Discussed with Dr. Coreas Standardized Stroke Orders Used: Yes Critical Care Time Critical Care Time: 30 - 74 mins A&P Assessment and plan 1. 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 This suggests posterior cerebral pronation ischemia and we have the opportunity to treat with TNK at this time. Patient gave informed consent. Plan CT angiogram. She will need to have a CT of the head tomorrow to rule out hemorrhage. Admit to ICU today. Patient is allergic to Ativan. PDMP PDMP Reviewed: Not Reviewed Coding Level of Care Code Acute Code for [facility] Fwd Diagnoses Acute ischemic multifocal posterior circulation stroke involving right-sided vessel I63.531
--- NOTE | 2024-12-17 12:05 | PC.NURSE ---
PT frankie SALDANA @[id number]. PT given verbal and written consent. 2 has 2 IV's bilateral AC'S, PT alert and oriented x4.
[2024-12-17 12:17] LABS: Glucose Urine UA Negative (Normal); Nitrate Urine Negative (Negative); Specific Gravity, Urine 1.008 (1.005-1.030)
[2024-12-17] MEDS: nicardipine 20 MG/200 ML PREMIX 50 MG IV (12:19)
[2024-12-17 12:20] LABS: Add Urine Microscopic? YES
[2024-12-17 12:24] LABS: PCP Screen Urine Negative (Negative)
--- NOTE | 2024-12-17 13:58 | PC.NURSE ---
1310 Received patient from ER via [facility], awake and alert. Moving all extremities well, scooted from gurney to bed well. ER nurse stated she turned off Cardene drip before transfering due to sys bp of 130's. Bilateral ac ivs saline locked. No c/o's. Attached to monitor and made comfortable.
--- NOTE | 2024-12-17 14:00 | PC.NURSE ---
1400 Patient coughed up very small amount of red sputum in kleenex. No other signs of bleeding noted.
--- NOTE | 2024-12-17 14:39 | USCV_ITS ---
Bette Dawson Age: 79 Gender: F : 1945 Exam Date: 12/17/2024 15:54 Ordering Phys: Roe Rodriguez MD Technologist: HERLINDA [place] [facility] [place]ication: Acute Stroke BP: / HR: 75 Rhythm: Sinus Technical Quality: Adequate MEASUREMENTS (Male / Female) Normal Values 2D ECHO LV Diastolic Diameter PLAX 5.2 cm 4.2 - 5.9 / 3.9 - 5.3 cm IVS Diastolic Thickness 0.7 cm 0.6 - 1.0 / 0.6 - 0.9 cm IVS Systolic Thickness 1.3 cm LVPW Diastolic Thickness 1.0 cm 0.6 - 1.0 / 0.6 - 0.9 cm LVPW Systolic Thickness 1.6 cm LVOT Diameter 2.0 cm LV Ejection Fraction 2D Teich 59.0 % LV Ejection Fraction MOD 4C 63.2 % LV Ejection Fraction MOD 2C 62.2 % LV Ejection Fraction 2C AL 63.6 % LA Diameter 3.1 cm RA Systolic Volume 4C AL 16.1 ml RA Systolic Volume 4C MOD 15.5 ml LA Sys Volume AL 18.9 cm cubed LA Sys Volume Index AL 11.9 cm cubed/m squared Aorta at Sinotubular Diameter 1.7 cm M-MODE LA Ao Ratio MM 1.1 AV Cusp Separation MM 1.0 cm DOPPLER AV Peak Velocity 91.0 cm/s LVOT Peak Velocity 100.0 cm/s AV Area Cont Eq vti 3.5 cm squared AV Area Cont Eq pk 3.6 cm squared MV Peak Velocity 120.0 cm/s MV Area PHT 5.8 cm squared Mitral E to A Ratio 0.6 TR Peak Velocity 72.0 cm/s TR Peak Gradient 2.1 mmHg TV Peak E Velocity 40.0 cm/s PV Peak Velocity 82.0 cm/s FINDINGS Left Ventricle Normal left ventricular size, systolic function and wall thickness, with no regional wall motion abnormalities. Left ventricular ejection fraction is estimated at 60 %. Grade I/IV diastolic dysfunction (abnormal relaxation filling pattern), normal to mildly elevated filling pressures. Right Ventricle The right ventricle is normal in size and function. Right Atrium The right atrium is normal in size. Left Atrium The left atrium is normal in size. Mitral Valve Structurally normal mitral valve without significant stenosis or prolapse. There is no mitral regurgitation. Aortic Valve Structurally normal aortic valve without significant sclerosis or stenosis. There is no aortic regurgitation. Tricuspid Valve Structurally normal tricuspid valve without significant stenosis or regurgitation. Pulmonary artery systolic pressure is normal. Pulmonic Valve Structurally normal pulmonic valve without significant stenosis. There is no pulmonic regurgitation. Pericardium Normal pericardium without effusion. Aorta Normal ascending aorta dimension. IVC The inferior vena cava appears normal. CONCLUSIONS Normal left ventricular size, systolic function and wall thickness, with no regional wall motion abnormalities. Left ventricular ejection fraction is estimated at 60 %. Grade I/IV diastolic dysfunction (abnormal relaxation filling pattern), normal to mildly elevated filling pressures. There is no pericardial effusion. No significant valve abnormalities. Right atrial pressure is around 5 mm of mercury. Grisel Mitchell MD (Electronically Signed) Final Date: 18 December 2024 13:16 S
--- NOTE | 2024-12-17 15:08 | PM.HP ---
Providers/Chief Complaint Admitting Physician: Roe Rodriguez MD Primary Care Provider: Eduarda Pagan MD Chief Complaint: vertigo History of Present Illness Bette Dawson is a 79 year old female came to the [facility] as a code stroke and had blood pressures as high as 206/96 and with IV medication this dropped to 173/97 allowing treatment with thrombolytics which were administered at 11:45 AM. Patient states that about 30 minutes after this she began to feel improved and now feels back to normal at 1511. Patient is companied by her son Carlton. She states that she was at [employer] study and felt hot lightheaded and clammy and dizzy at 1030 room was not spinning but vision was a little blurry and foggy. She was nauseated but did not actually vomit she could not walk due to feeling lightheaded she denies headache or pain but admits it was difficult to think. Friend thought her speech was slurred. Patient states she is on blood pressure meds but blood pressure tends to go up when weather is cold. She reports blood pressures as high as 230/160 before treatment a couple years ago it was as low as 73/53 2 weeks ago and she spoke with Dr. Latasha MINOR who lowered her carvedilol by 1 tablet at night. Recently blood pressure has been good 130/80 heart rate 85 but as high as 160/90+ on occasion and she has taken as needed clonidine 5 out of 7 days in 1 week per her recollection. Patient denies alcohol drug or tobacco use she does not have diabetes or hyperlipidemia she is 6 years ago and wants full code as discussed with her she and her son Carlton at bedside today Past surgical history 2 left knee open surgeries WICHO with ovaries left intact around age 40 and colonoscopy 2 years ago okay Review of Systems Narrative: General no fevers chills weight gain weight loss Cardiovascular no chest pain palpitations or edema except a little bit of edema with some of her meds Respiratory positive for dry cough for 2 months she was told to take an allergy pill which helped some GI positive for nausea today only no vomiting or constipation she had last week 1 day of diarrhea associated with food but none since no dysuria hematuria [employer]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 no vaginal bleeding or discharge Malignancy history negative Hematologic no clots in legs or lungs no anemia or bleeding problems Musculoskeletal she has had knee surgery x 2 which were open surgeries years ago Medications/Allergies Home Medications ?Medication ?Instructions ?Recorded ?Confirmed ?Last Taken ?Type alendronate 70 mg tablet See Rx Instructions .Route 03/18/24 12/17/24 12/15/24 Rx .COMPLEX #12 tabs clonidine HCl 0.1 mg tablet 0.1 mg PO BID PRN hypertensive 07/24/24 12/17/24 12/17/24 10:00 Rx emergency #60 tabs losartan 100 mg tablet 100 mg PO DAILY #90 tabs 08/14/24 12/17/24 12/17/24 08:00 Rx amlodipine 2.5 mg tablet 2.5 mg PO DAILY #180 tabs 12/02/24 12/17/24 12/17/24 08:00 Rx carvedilol 12.5 mg tablet 12.5 mg PO .1QAM 2QPM #270 tabs 12/10/24 12/17/24 12/17/24 08:00 Rx Lactobacillus acidophilus 10 10,000 mmu cells PO DAILY 12/17/24 12/17/24 12/17/24 08:00 History billion cell capsule (Probiotic) cetirizine 10 mg tablet (Zyrtec) 10 mg PO DAILY PRN allergies 12/17/24 12/17/24 Unknown History collagen,hydrolysate 500 mg-biotin 2 cap PO DAILY 12/17/24 12/17/24 12/17/24 History 800 mcg-ascorbic acid 50 mg capsule (Collagen 1500 Plus C) magnesium oxide 250 mg PO DAILY 12/17/24 12/17/24 12/17/24 History [id number] 240 mcg-vit K1 1 tab PO DAILY 12/17/24 12/17/24 12/17/24 08:00 History 120 mcg-lutein 300 mcg-herbs tablet (Alive Women's 50 Plus Complete) omega-3 fatty acids-fish oil 684 1 cap PO DAILY 12/17/24 12/17/24 12/17/24 History mg-1,200 mg capsule,delayed release Allergies Allergy/AdvReac Type Severity Reaction Status Date / Time lorazepam (From Ativan) Allergy Unknown Verified 12/17/24 13:09 PFSH Acute PFSH: Medical History (Updated 12/17/24 @ 12:07 by Evelyne Coreas MD) Osteoporosis Acne rosacea, erythematous telangiectatic type Surgical History History of hysterectomy kept ovaries History of left knee surgery Family History Father Chronic kidney disease (CKD) CAD (coronary artery disease) Denies family history of Diabetes Dementia Hypertension Stroke Social History (Updated 12/17/24 @ 15:17 by Roe Rodriguez MD) Smoking and tobacco/nicotine status: never used tobacco/nicotine Alcohol intake: never Substance/Drug Use: never Additional social history: 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 and she wants full code as discussed today with Roe Rodriguez MD on 12/17/2024 Lives independently: Yes Household members: children Marital status: / Marital status details: 2018 Number of children: 3 Current occupational status: retired Vitals/I&O/Wt Last Vital Signs Temp 97.8 F 12/17/24 13:24 Pulse 75 12/17/24 14:00 Resp 17 12/17/24 12:45 BP 130/82 12/17/24 13:13 Pulse Ox 93 12/17/24 13:26 O2 Del Method Room Air 12/17/24 13:26 12/17/24 12/17/24 12/17/24 06:59 14:59 22:59 Intake Total 200 / 200 Balance 200 / 200 Weight last 48 hrs Weight 55.338 kg Physical Exam Narrative: General well-developed well-nourished female in no acute cardiopulmonary stress CV regular rate and rhythm Lungs clear to auscultation bilaterally Abdomen positive bowel tones soft nontender Calves no tenderness cords pretibial edema Vascular radial dorsal pedal and carotid pulses 2+ Neck no carotid bruits Oral Mallampati 1 Neuro she is alert and orient x 3 speech is clear, pupils equally round and reactive to light accommodation external ocular movements intact tongue protrusion is without deviation smile is symmetric cranial nerves II through XII grossly intact Motor strength 5/5 bilateral handgrips biceps triceps flexion extension of the ankles. Patient is able to raise either leg off the bed individually for count of 10 seconds without drift. [id number] is intact and with arms outstretched no pronator drift with eyes closed Data 12/17/24 10:56 12/17/24 10:56 A&P Assessment and plan 1. Acute ischemic multifocal posterior circulation stroke involving right-sided vessel: Patient received thrombolytics in the emergency department once blood pressure was improved to acceptable guideline numbers. She has had very good response and thus far no complications. She will be monitored closely in the intensive care unit to look for any signs of cerebral bleeding. She currently requires no blood pressure medications and her current blood pressure spontaneous 2. Hypertension: Blood pressure spontaneously 130/82 pulse 75 O2 sat 93% on room air 3. Vertigo: Resolved post thrombolytics PDMP PDMP Reviewed: Not Reviewed Attestations Medical Necessity Statement*: Patient will be monitored in the hospital for additional 1-2 midnights. She has had rapid recover faster than expected Coding Level of Care Code 25846 Diagnoses Acute ischemic multifocal posterior circulation stroke involving right-sided vessel I63.531 Hypertension I10 Vertigo R42 Time Spent (min) 70
[2024-12-18] VITALS (33 sets, daily range): BP systolic 108–167; BP diastolic 61–113; PULSE 61–85; RESP 12–27; TEMP 36.3–36.9; O2SAT 91–98
[2024-12-18 04:06] LABS: Hematocrit 35.7 % (36-47); Hemoglobin 12.20 g/dL (11.27-16.99); Mean Corpuscular HGB Conc 34.2 g/dL (30-55); Mean Corpuscular Hemoglobin 29.8 pg (27-33); Mean Corpuscular Volume 87.3 fl (85-98); Nucleated Red Blood Cells % 0 %; Platelet Count 306 10^3/cmm (157-399); Red Blood Count 4.09 10^6/uL (3.85-5.65); White Blood Count 9.33 10^3/uL (3.29-11.43)
[2024-12-18 04:34] LABS: Cholesterol 180 mg/dL (0-200); HDL Cholesterol 57 mg/dL (60-100); Triglycerides 52 mg/dL (0-150)
[2024-12-18 04:37] LABS: Alanine Aminotransferase 15 U/L (0-33); Albumin Level 3.6 g/dL (3.5-5.2); Alkaline Phosphatase 74 U/L (35-105); Anion Gap 16.9 (5-19); Aspartate Amino Transferase 16 U/L (0-32); Blood Urea Nitrogen 14 mg/dL (8-23); Calcium 9.4 mg/dL (8.5-10.5); Carbon Dioxide 23 mmol/L (22-29); Chloride 96 mmol/L (98-107); Creatinine Clr Calc Pharmacy 41.1576; Globulin 2.7 g/dL (1.3-4.6); Glucose 138 mg/dL (65-115); Osmolality Calculated 277 mOsm/kg (285-295); Potassium 3.9 mmol/L (3.5-5.1); Sodium 132 mmol/L (136-145); Total Protein 6.3 g/dL (6.6-8.7)
[2024-12-18 04:41] LABS: Estmated Average Glucose 134; Hemoglobin A1C 6.3 % (4.0-6.0)
--- NOTE | 2024-12-18 09:00 | CT_ITS ---
WS: [id number] CT HEAD TECHNIQUE: Noncontrast CT of the head obtained from the skullbase to the vertex. CLINICAL INFORMATION: 24 hours post TNK COMPARISON: 12/17/2024 DLP: 974.[address] scans at [facility] use at least one of these dose optimization techniques: automated exposure control; mA and/or kV adjustment per patient size (includes targeted exams where dose is matched to clinical indication); or iterative reconstruction. FINDINGS: No evidence of intracranial hemorrhage or mass effect. Ventricular system and basal cisterns are patent. Mild small vessel changes with mild parenchymal volume loss. No extra-axial fluid collections. No evidence of mass or mass effect. Normal mathias-white differentiation. Vascular calcification Paranasal sinuses and mastoid air cells are well aerated. .Normal visualized soft tissues. CT/CT head wo con* [id number] IMPRESSION: 1. No evidence of intracranial hemorrhage or mass effect. 2. Vascular calcification 3. No changes since yesterday 4. No acute intracranial findings.
--- NOTE | 2024-12-18 11:49 | PC.OT ---
OT evaluation completed. Services not indicated at this time.
--- NOTE | 2024-12-18 13:03 | P.DS_ITS ---
Discharge Providers Date of Admission: 12/17/24 12:04 Date of Discharge: December 18, 2024 Attending Provider at Admission: Roe Rodriguez MD Attending Provider at Discharge: Roe Rodriguez MD Consults: Elida Rossi MD neurology Primary Care Provider: Eduarda Pagan MD Diagnoses at Discharge Discharge Diagnosis 1. Acute ischemic multifocal posterior circulation stroke involving right-sided vessel: Details from hospital stay: Received thrombolytics yesterday at 11:45 AM and had full recovery. CT scan this morning shows no bleed. Patient's neurology exam still normal She will go home with addition of aspirin and atorvastatin. Her triglyceride to HDL ratio was good but LDL is 113 and we will try to treat this to a level of 50 MRI and MRA to be done and follow-up with Dr. Rossi in 3 weeks 2. Primary hypertension: Details from hospital stay: Resume home blood pressure medications 3. Vertigo: Details from hospital stay: Resolved with resolution of stroke Reason for Visit Reason for Visit: vertigo Brief History: Bette Dawson is a 79 year old female came to the [facility] as a code stroke and had blood pressures as high as 206/96 and with IV medication this dropped to 173/97 allowing treatment with thrombolytics which were administered at 11:45 AM. Patient states that about 30 minutes after this she began to feel improved and now feels back to normal at 1511. Patient is companied by her son Carlton. She states that she was at [employer] study and felt hot lightheaded and clammy and dizzy at 1030 room was not spinning but vision was a little blurry and foggy. She was nauseated but did not actually vomit she could not walk due to feeling lightheaded she denies headache or pain but admits it was difficult to think. Friend thought her speech was slurred. Patient states she is on blood pressure meds but blood pressure tends to go up when weather is cold. She reports blood pressures as high as 230/160 before treatment a couple years ago it was as low as 73/53 2 weeks ago and she spoke with Dr. Latasha MINOR who lowered her carvedilol by 1 tablet at night. Recently blood pressure has been good 130/80 heart rate 85 but as high as 160/90+ on occasion and she has taken as needed clonidine 5 out of 7 days in 1 week per her recollection. Patient denies alcohol drug or tobacco use she does not have diabetes or hyperlipidemia she is 6 years ago and wants full code as discussed with her she and her son Carlton at bedside today Past surgical history 2 left knee open surgeries WICHO with ovaries left intact around age 40 and colonoscopy 2 years ago [facility] Hospital Course Patient had thrombolytics following improvement of her blood pressure in the emergency department. She had very good results with her thrombolytics feeling better after about 30 minutes and resolving her symptoms completely at 2 hours and 50 minutes when I saw her. The patient continues have normal exam this morning. Cholesterol was checked and see above. Hemoglobin A1c was 6.3 showing prediabetes and she will be on a diabetic diet as a result. Physical Exam Narrative: General well-developed well-nourished female in no acute cardiopulmonary stress CV regular rate and rhythm Lungs clear to auscultation bilaterally Abdomen positive bowel sound soft nontender Neuro biceps triceps handgrips 5/5 Pupils equally round and reactive to light face is symmetric tongue protrusion symmetric speech clear Discharge Data Studies Completed and Pending Completed Studies During Hospitalization Category Date Time Status CT head thrombolytic [id number] Stat Cat Scan 12/17/24 11:[address] head wo con* [id number] Routine Cat Scan 12/18/24 09:00 Completed Pending at discharge Category Date Time Status CV. echo complete* [id number] Routine Ultrasound 12/17/24 14:39 Taken Radiology Impressions Head CT 12/18/24 09:00 IMPRESSION: 1. No evidence of intracranial hemorrhage or mass effect. 2. Vascular calcification 3. No changes since yesterday 4. No acute intracranial findings. Laboratory Results WBC 9.33 10^3/uL (3.29-11.43) 12/18/24 03:25 RBC 4.09 10^6/uL (3.85-5.65) 12/18/24 03:25 Hgb 12.20 g/dL (11.27-16.99) 12/18/24 03:25 Hct 35.7 % (36-47) L 12/18/24 03:25 MCV 87.3 fl (85-98) 12/18/24 03:25 MCH 29.8 pg (27-33) 12/18/24 03:25 MCHC 34.2 g/dL (30-55) 12/18/24 03:25 RDW 13.2 % (12.1-15.1) 12/18/24 03:25 Plt Count 306 10^3/cmm (157-399) 12/18/24 03:25 MPV 8.4 fL (7.4-10.4) 12/18/24 03:25 Neut % (Auto) 76.6 % 12/18/24 03:25 Lymph % (Auto) 8.5 % 12/18/24 03:25 [place] % (Auto) 12.5 % 12/18/24 03:25 Eos % (Auto) 1.6 % 12/18/24 03:25 Baso % (Auto) 0.5 % 12/18/24 03:25 Neut # (Auto) 7.14 10^3/uL (1.8-7.7) 12/18/24 03:25 Lymph # (Auto) 0.8 10^3/uL (0.8-4.8) 12/18/24 03:25 [place] # (Auto) 1.2 10^3/uL (0.2-0.9) H 12/18/24 03:25 Eos # (Auto) 0.2 10^3/uL (0.0-0.8) 12/18/24 03:25 Baso # (Auto) 0.1 10^3/uL (0.0-0.1) 12/18/24 03:25 Nucleated RBC % (auto) 0 % 12/18/24 03:25 Nucleated RBCs # 0.0 /100WBC 12/18/24 03:25 PT 13.30 SECONDS (12.1-14.9) 12/17/24 10:56 INR 0.95 (0.8-1.2) 12/17/24 10:56 APTT 31.2 SECONDS (23.9-36.7) 12/17/24 10:56 Sodium 132 mmol/L (136-145) L 12/18/24 03:25 Potassium 3.9 mmol/L (3.5-5.1) 12/18/24 03:25 Chloride 96 mmol/L (98-107) L 12/18/24 03:25 Carbon Dioxide 23 mmol/L (22-29) 12/18/24 03:25 Anion Gap 16.9 (5-19) 12/18/24 03:25 BUN 14 mg/dL (8-23) 12/18/24 03:25 Creatinine 1.0 mg/dL (0.5-0.9) H 12/18/24 03:25 GFR Calculation Not Reportable 12/18/24 03:25 Glucose 138 mg/dL (65-115) H 12/18/24 03:25 POC Glucose 101 mg/dL (70-110) 12/17/24 11:16 Estimat Average Glucose 134 12/18/24 03:25 Hemoglobin A1c 6.3 % (4.0-6.0) H 12/18/24 03:25 Calculated Osmolality 277 mOsm/kg (285-295) L 12/18/24 03:25 Calcium 9.4 mg/dL (8.5-10.5) 12/18/24 03:25 Total Bilirubin 0.3 mg/dL (0.15-1.2) 12/18/24 03:25 AST 16 U/L (0-32) 12/18/24 03:25 ALT 15 U/L (0-33) 12/18/24 03:25 Alkaline Phosphatase 74 U/L (35-105) 12/18/24 03:25 Total Protein 6.3 g/dL (6.6-8.7) L D 12/18/24 03:25 Albumin 3.6 g/dL (3.5-5.2) 12/18/24 03:25 Globulin 2.7 g/dL (1.3-4.6) 12/18/24 03:25 Triglycerides 52 mg/dL (0-150) 12/18/24 03:25 Cholesterol 180 mg/dL (0-200) 12/18/24 03:25 LDL Cholesterol, Calc 113 mg/dL (50-129) 12/18/24 03:25 HDL Cholesterol 57 mg/dL (60-100) L 12/18/24 03:25 LDL/HDL Ratio 1.98 RATIO (0.00-3.22) 12/18/24 03:25 Cholesterol/HDL Ratio 3.16 mg/dL (0.0-4.40) 12/18/24 03:25 Urine Color Yellow (Yellow) 12/17/24 12:09 Urine Appearance Clear (CLEAR) 12/17/24 12:09 Urine pH 8.5 (5-7) A 12/17/24 12:09 Ur Specific [place] 1.008 (1.005-1.030) 12/17/24 12:09 Urine Protein Negative (Negative) 12/17/24 12:09 Urine Glucose (UA) Negative (Normal) 12/17/24 12:09 Urine Ketones Trace (Negative) 12/17/24 12:09 Urine Blood Negative (Negative) 12/17/24 12:09 Urine Nitrate Negative (Negative) 12/17/24 12:09 Urine Bilirubin Negative (Negative) 12/17/24 12:09 Urine Urobilinogen 0.2 mg/dL (Negative) 12/17/24 12:09 Ur Leukocyte Esterase Negative (Negative) 12/17/24 12:09 Urine RBC 0-2 /hpf (0-2) 12/17/24 12:09 Urine WBC 0-5 /hpf (0-5) 12/17/24 12:09 Ur Squamous Epith Cells 0-5 /hpf (0-5) 12/17/24 12:09 Amorphous Sediment Not Reportable 12/17/24 12:09 Urine Bacteria None seen /hpf (NONE) 12/17/24 12:09 Hyaline Casts 0-4 /lpf H 12/17/24 12:09 Urine Opiates Screen Negative ng/mL (Negative) 12/17/24 12:09 Ur Barbiturates Screen Negative ng/mL (Negative) 12/17/24 12:09 Ur Phencyclidine Scrn Negative ng/mL (Negative) 12/17/24 12:09 Ur Amphetamines Screen Negative ng/mL (Negative) 12/17/24 12:09 U Benzodiazepines Scrn Negative ng/mL (Negative) 12/17/24 12:09 Urine Cocaine Screen Negative ng/mL (Negative) 12/17/24 12:09 U Marijuana (THC) Screen Negative ng/mL (Negative) 12/17/24 12:09 Vitals Last Vital Signs Temp 98.3 F 12/18/24 08:00 Pulse 79 12/18/24 11:39 Resp 15 12/18/24 09:30 BP 136/68 12/18/24 12:31 Pulse Ox 95 12/18/24 10:21 O2 Del Method Room Air 12/18/24 10:21 Discharge Plan Discharge Patient Disposition: Home Condition: Stable Prescriptions: New aspirin [Adult Aspirin Regimen] 81 mg tablet,delayed release (DR/EC) 81 mg PO DAILY Qty: 100 0RF atorvastatin [Lipitor] 20 mg tablet 20 mg PO QPM Qty: 90 0RF aspirin 81 mg Tablet,Delayed Release (Dr/Ec) 81 mg PO DAILY Qty: 100 0RF Continued losartan 100 mg tablet 100 mg PO DAILY Qty: 90 3RF amlodipine 2.5 mg tablet 2.5 mg PO DAILY Qty: 180 3RF Rx Instructions: Take 5 mg (2 tablet) in the evening for blood pressure of 160/90 or above alendronate 70 mg tablet See Rx Instructions .ROUTE .COMPLEX Qty: 12 3RF Dose Instruction: TAKE 1 TABLET BY MOUTH ONE TIME A WEEK Rx Instructions: TAKE 1 TABLET BY MOUTH ONE TIME A WEEK clonidine HCl 0.1 mg tablet 0.1 mg PO BID PRN (Reason: hypertensive emergency) Qty: 60 0RF carvedilol 12.5 mg tablet 12.5 mg PO .1QAM 2QPM Qty: 270 3RF Rx Instructions: 1 tab in AM and 2 tabs at hs cetirizine [Zyrtec] 10 mg Tablet 10 mg PO DAILY PRN (Reason: allergies) magnesium oxide 250 mg magnesium Tablet 250 mg PO DAILY Norco 3 Fish Oil 684-1,200 mg Capsule,Delayed Release(Dr/Ec) 1 cap PO DAILY Probiotic 10 billion cell Capsule 10,000 mmu cells PO DAILY Collagen 1500 Plus C 500 mg-800 mcg- 50 mg Capsule 2 cap PO DAILY Alive Women's 50 Plus Complete 240-120-300 mcg Tablet 1 tab PO DAILY Discharge Order = DC NOW: Discharge Order (Routine); Ordered 12/18/24 Ordered By: Roe Rodriguez Other Ambulatory Orders: MR angio head wo con [id number] (Routine) Timeframe: 1 Week Facility: [facility] - Location: Radiology Ordered By: Roe Rodriguez MR angio neck w con* [id number] (Routine) Timeframe: 1 Week Facility: [facility] - Location: Radiology Art Fabrizio MELGARDG Ordered By: Roe Rodriguez MR head wo con* [id number] (Routine) Timeframe: 1 Week Facility: [facility] - Location: Radiology Ordered By: Roe Rodriguez Referrals: Elida Rossi MD [Physician, Neurology] - 1 month Eduarda Pagan MD [Primary Care Provider, Family Practice] Discharge Diet: Cardiac, Low Salt and Low Cholesterol Discharge Activity: Increase activity as tolerated Patient Instructions: Ischemic Stroke (DC), Opioid Safety, Patient Portal & Wilfrido Instructions Activity Restrictions/Additional Instructions: Take meds as prescribed Start treating cholesterol due to stroke with goal LDL below 50 Your triglyceride level was 52 and HDL was 57 for a triglyceride to HDL level ratio of less than 1 which is good. Follow a low-carb diabetic diet because your hemoglobin A1c was 6.3 Return for any recurrent signs of stroke or brain bleed such as difficulty with speech walking severe headache or loss of limb function Discharge Attestations Time Spent in Discharge Care*: greater than 30 min Time Spent in Smoking Cessation: Patient is not a smoker Quality Metrics Clinical Quality Measures [ Cerebrovascular Accident { Contraindication to Antithrombotic: None; antithrombotic prescribed; Contraindication to Anticoagulation: Overlap treatment not indicated; Contraindication to Statin: None; Statin prescribed; Contraindication to antithrombotic day 2: None; Antithrombotic given day 2; Contraindication to tPA: None; TPA given; Onset of Symptoms Date: 12/17/24; Onset of Symptoms Time: 10:15; Reason stroke education not provided: Stroke education provided to patient; Pt Provided Written Stroke Discharge Instructions: Patient given written information; Rehab services assessed: Activities of daily living assessment, Physical therapy, Occupational therapy, Speech therapy; Reason rehab assessment not done: Rehab assessment done}] Coding Level of Care Code Acute Code for Trev Sheppard Diagnoses Acute ischemic multifocal posterior circulation stroke involving right-sided vessel I63.531 Primary hypertension I10 Hypertension type: primary hypertension Vertigo R42 Time Spent (min) 45
--- NOTE | 2024-12-18 14:04 | PC.NURSE ---
Discharge..... Patient discharged at 1400. Picked up by her son. Educated on new medications, upcoming appointments, and diet recommendations. Medications sent to [facility] pharmacy. Bilateral IVs removed. MRI is aware of appointment/orders, MRI unable to set appointment yet, but they will call the patient with appointment.
== END 2024-12-18 14:00 | disposition home or self-care (01) | DRG 63 ==
LOC: ER 12:07 → ICU 12:27
PROVIDERS: Admitting Provider Internal Medicine; Emergency Provider Emergency Medicine; PCP Family Medicine; Visit Provider Internal Medicine
DX: I63.531 Cerebral infarction due to unspecified occlusion or stenosis of right posterior cerebral artery (principal); R42 Dizziness and giddiness; I10 Essential (primary) hypertension; M81.0 Age-related osteoporosis without current pathological fracture; Z79.82 Long term (current) use of aspirin; Z88.8 Allergy status to other drugs, medicaments and biological substances
CPT/HCPCS: 36415; 36416; 70450; 80053; 80061; 80306; 81001; 82962; 83036; 85025; 85610; 85730; 92523; 92610; 93005; 93306; 96365; 96375; 97116; 97161; 97165; 99291; J2404; J2405; J3101; J3490; J9999

== ENCOUNTER 2024-12-25 10:02 | Outpatient (CLI) | payer MEDICARE, OTHER, SELFPAY ==
--- NOTE | 2024-12-25 10:15 | MR_ITS ---
WS: [id number] MRA CAROTID WITHOUT AND WITH GADOLINIUM ENHANCEMENT TECHNIQUE: Axial 2-D TOF and gadolinium bolus images obtained with axial images and axial, sagittal, and coronal 2-D reformatted images. CLINICAL INFORMATION: posterior circulation stroke COMPARISON: CT head 12/18/2024 FINDINGS: RIGHT: RIGHT common carotid artery is patent. No significant RIGHT ICA stenosis. RIGHT ICA is patent to the skull base. LEFT: LEFT common carotid is patent. No significant LEFT ICA stenosis. LEFT ICA is patent to the skull base. LEFT dominant vertebral artery. Smaller but patent RIGHT vertebral artery. Proximal subclavian arteries are patent. MR/MR angio neck w con* [id number] IMPRESSION: 1. No significant cervical ICA stenosis. Both ICAs are patent to the skull bas e. 2. LEFT dominant vertebral artery. Both vertebral arteries are patent to the b asilar junction.
--- NOTE | 2024-12-25 11:00 | MR_ITS ---
WS: [id number] MRA HEAD TECHNIQUE: Axial 3-D TOF images obtained with axial images and axial, sagittal, and coronal 2-D reformatted images. CLINICAL INFORMATION: posterior circulation stroke COMPARISON: None. FINDINGS: Distal vertebral arteries are patent. Basilar artery is patent. Persistent LEFT ELECTRODE CLEANER. Normal vascularity to the ELECTRODE CLEANER territory bilaterally. Both ICAs are patent at the skull base. Normal vascularity to the SEVEN and MCA territories bilaterally. No evidence of proximal flow-limiting stenosis. Patent anterior artery communicating artery. MR/MR angio head wo con [id number] IMPRESSION: 1. Persistent LEFT ELECTRODE CLEANER. Normal vascularity to the ELECTRODE CLEANER territory bilatera lly. 2. Otherwise normal intracranial MRA.
[2024-12-25] MEDS: gadobenate dimeglumine 20 mL vial IV (11:12)
== END 2024-12-25 10:03 | disposition home or self-care (01) ==
LOC: RAD 10:03
PROVIDERS: PCP Family Medicine; Visit Provider Internal Medicine
DX: I63.531 Cerebral infarction due to unspecified occlusion or stenosis of right posterior cerebral artery (principal)
CPT/HCPCS: 70544; 70548

== ENCOUNTER → 2024-12-26 08:05 | Outpatient (BNVA) | payer MEDICARE, OTHER, SELFPAY | PROVIDERS: PCP Family Medicine; Visit Provider Nurse Practitioner Family | DX: L82.1 Other seborrheic keratosis (principal); D18.01 Hemangioma of skin and subcutaneous tissue; L57.8 Other skin changes due to chronic exposure to nonionizing radiation; L82.0 Inflamed seborrheic keratosis; L53.8 Other specified erythematous conditions; Z78.9 Other specified health status; L29.89 Other pruritus; L57.0 Actinic keratosis | CPT/HCPCS: 17000; 17110; 99213 ==

== ENCOUNTER → 2025-01-06 07:59 | Outpatient (BNVA) | payer MEDICARE, OTHER, SELFPAY | PROVIDERS: PCP Family Medicine; Visit Provider Specialist | DX: I63.50 Cerebral infarction due to unspecified occlusion or stenosis of unspecified cerebral artery (principal); R42 Dizziness and giddiness; R07.89 Other chest pain; I10 Essential (primary) hypertension; R00.2 Palpitations; G47.10 Hypersomnia, unspecified | CPT/HCPCS: 99205 ==

== ENCOUNTER 2025-01-06 09:19 | Outpatient (CLI) | payer MEDICARE, OTHER, SELFPAY | END 2025-01-06 09:20 | disposition home or self-care (01) | LOC: LAB 09:22 | PROVIDERS: PCP Family Medicine; Visit Provider Specialist | DX: I10 Essential (primary) hypertension (principal); I63.531 Cerebral infarction due to unspecified occlusion or stenosis of right posterior cerebral artery; R42 Dizziness and giddiness; I63.9 Cerebral infarction, unspecified; R07.89 Other chest pain | CPT/HCPCS: 36415; 84443; 85651; 86160; 86162; 86235; 86255; 86376 ==

== ENCOUNTER → 2025-01-07 12:30 | Outpatient (BNVA) | payer MEDICARE, OTHER, SELFPAY | PROVIDERS: PCP Family Medicine; Visit Provider Family Medicine | DX: I10 Essential (primary) hypertension (principal); R42 Dizziness and giddiness; I63.9 Cerebral infarction, unspecified; I63.531 Cerebral infarction due to unspecified occlusion or stenosis of right posterior cerebral artery; I63.50 Cerebral infarction due to unspecified occlusion or stenosis of unspecified cerebral artery; R07.89 Other chest pain | CPT/HCPCS: 80053 ==

== ENCOUNTER 2025-01-24 19:52 | Observation (INO) | payer MEDICARE, OTHER, SELFPAY ==
[2025-01-24 20:00] VITALS: BP 210/100; PULSE 74; RESP 16; TEMP 36.4; O2SAT 100; BMI 26.7
--- NOTE | 2025-01-24 20:25 | ECG_ITS ---
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 Measurements Intervals [place] Rate: 69 P: 73 SD: 162 QRS: 39 QRSD: 88 T: 51 QT: 377 QTc: 406 Interpretive Statements SINUS RHYTHM POSSIBLE RIGHT VENTRICULAR CONDUCTION DELAY [RSR (QR) IN V1/V2] Compared to ECG 12/17/2024 11:53:33 Incomplete right bundle-branch block no longer present Myocardial infarct finding no longer present Electronically Signed On 01-24-2025 20:38:20 CDT by Richard eLe M.D. [email or web address] [id number]
--- NOTE | 2025-01-24 20:25 | XRR_ITS ---
PROCEDURE INFORMATION: Exam: XR Chest Exam date and time: 01/24/2025 8:26 PM Age: 80 years old Clinical indication: Other: Hypertension; Hypertensive; Additional info: HTN, malaise TECHNIQUE: Imaging protocol: Radiologic exam of the chest. Views: 1 view. COMPARISON: CR XR chest 1V portable [id number] 04/15/2022 11:34 PM FINDINGS: Lungs: Emphysematous changes. Pleural spaces: Unremarkable. No pleural effusion. No pneumothorax. Heart/Mediastinum: Unremarkable. No cardiomegaly. Bones/joints: Unremarkable. XR/XR chest 1V portable [id number] IMPRESSION: Emphysematous changes, negative for infiltrate.
[2025-01-24 20:33] VITALS: BP 192/115; PULSE 76; RESP 18; O2SAT 99
[2025-01-24 20:33] LABS: Hematocrit 35.2 % (36-47); Hemoglobin 12.00 g/dL (11.27-16.99); Mean Corpuscular HGB Conc 34.1 g/dL (30-55); Mean Corpuscular Hemoglobin 29.1 pg (27-33); Mean Corpuscular Volume 85.4 fl (85-98); Nucleated Red Blood Cells % 0 %; Platelet Count 354 10^3/cmm (157-399); Red Blood Count 4.12 10^6/uL (3.85-5.65); White Blood Count 8.59 10^3/uL (3.29-11.43)
[2025-01-24] MEDS: labetalol 5 mg/mL SDV 20mL 20 MG IVP (20:56)
[2025-01-24 21:02] LABS: Troponin(5th) Baseline 15 ng/L (0-10)
[2025-01-24 21:03] LABS: Alanine Aminotransferase 71 U/L (0-33); Albumin Level 4.3 g/dL (3.5-5.2); Alkaline Phosphatase 192 U/L (35-105); Anion Gap 17.9 (5-19); Aspartate Amino Transferase 29 U/L (0-32); Blood Urea Nitrogen 16 mg/dL (8-23); Calcium 9.5 mg/dL (8.5-10.5); Carbon Dioxide 25 mmol/L (22-29); Chloride 92 mmol/L (98-107); Creatinine Clr Calc Pharmacy 38.1804; Globulin 3.3 g/dL (1.3-4.6); Glucose 116 mg/dL (65-115); Osmolality Calculated 274 mOsm/kg (285-295); Potassium 3.9 mmol/L (3.5-5.1); Sodium 131 mmol/L (136-145); Total Protein 7.6 g/dL (6.6-8.7)
[2025-01-24 21:35] VITALS: BP 159/88; PULSE 70; RESP 18; O2SAT 96
[2025-01-24 21:40] LABS: Glucose Urine UA Negative (Normal); Nitrate Urine Negative (Negative); Specific Gravity, Urine 1.004 (1.005-1.030)
[2025-01-24 21:45] LABS: Add Urine Microscopic? YES
--- NOTE | 2025-01-24 21:54 | W.ED.GENADLT ---
HPI - General Adult General: Chief complaint: General Medical Stated complaint: High Blood Pressure Time Seen by Provider: 01/24/25 20:11 Source: patient Mode of arrival: ambulatory Limitations: no limitations History of Present Illness: Patient is a 72-year-old female with past medical history of hypertension and recent ischemic stroke 1 month ago treated with thrombolysis, and recent COVID infection, presenting to the ED with persistently elevated blood pressures over the past week. She reports home systolic readings consistently greater than 200 systolic despite use of her prescribed antihypertensives, including amlodipine, carvedilol, losartan, and rescue clonidine. States that normally the clonidine helps but has not tonight. She is not reporting any symptoms however no chest pain, shortness of breath, headache, visual changes, neurologic deficits, or other acute complaints. In the ED, initial blood pressure 190/112. IV will be placed and she will be given IV labetalol. Patient sees Dr. Lee for cardiology, also sees Dr. Pagan. States that recently she had her dose of amlodipine moved to noon, otherwise no medication changes. MD complaint: Hypertension Onset (ago): week(s) (1) Associated symptoms: Deny chest pain, dyspnea, headache(s), nausea, rash, palpitations or vomiting Treatments prior to arrival: other (Prescribed antihypertensives, clonidine for rescue) Related Data Home Medications ?Medication ?Instructions ?Recorded ?Confirmed Lactobacillus acidophilus 10 10,000 mmu cells PO DAILY 12/17/24 01/17/25 billion cell capsule (Probiotic) cetirizine 10 mg tablet (Zyrtec) 10 mg PO DAILY PRN allergies 12/17/24 01/17/25 collagen,hydrolysate 500 mg-biotin 2 cap PO DAILY 12/17/24 01/17/25 800 mcg-ascorbic acid 50 mg capsule (Collagen 1500 Plus C) magnesium oxide 250 mg PO DAILY 12/17/24 01/17/25 [id number] 240 mcg-vit K1 1 tab PO DAILY 12/17/24 01/17/25 120 mcg-lutein 300 mcg-herbs tablet (Alive Women's 50 Plus Complete) omega-3 fatty acids-fish oil 684 1 cap PO DAILY 12/17/24 01/17/25 mg-1,200 mg capsule,delayed release cholecalciferol (vitamin D3) 125 125 mcg PO DAILY 01/07/25 01/17/25 mcg (5,000 unit) capsule Previous Rx's ?Medication ?Instructions ?Recorded alendronate 70 mg tablet See Rx Instructions .Route 03/18/24 .COMPLEX #12 tabs clonidine HCl 0.1 mg tablet 0.1 mg PO BID PRN hypertensive 07/24/24 emergency #60 tabs losartan 100 mg tablet 100 mg PO DAILY #90 tabs 08/14/24 amlodipine 2.5 mg tablet 2.5 mg PO DAILY #180 tabs 12/02/24 carvedilol 12.5 mg tablet 12.5 mg PO .1QAM 2QPM #270 tabs 12/10/24 aspirin 81 mg tablet,delayed 81 mg PO DAILY #100 tabs 01/14/25 release (Adult Aspirin Regimen) atorvastatin 20 mg tablet (Lipitor) 20 mg PO QPM #90 tabs 01/14/25 tizanidine 2 mg tablet 2 mg PO Q8H PRN muscle spasticity 01/14/25 #30 tabs azithromycin 250 mg tablet See Rx Instructions PO .COMPLEX #6 01/17/25 tabs Allergies Allergy/AdvReac Type Severity Reaction Status Date / Time lorazepam (From Ativan) Allergy Unknown Verified 01/17/25 11:25 Review of Systems General: Reports: 10 or more systems reviewed and unremarkable except in HPI and below Const: Denies: fever(s), chills or fatigue Eyes: Denies: change in vision ENMT: Denies: throat pain, ear or mastoid pain or nasal discharge Card: Reports: other (reports hypertension); Denies: chest pain, palpitations, swelling of feet/ankles or lightheadedness Resp: Denies: dyspnea, productive cough or wheezing GI: Denies: abdominal pain, nausea, vomiting, diarrhea or constipation : Denies: flank pain, difficulty voiding, dysuria or urinary frequency Musc: Denies: neck pain, back pain or joint pain Skin/Breast: Denies: rash Neuro: Denies: headache(s), numbness in extremities or weakness in extremities PFSH ED PFSH: Medical History Osteoporosis Acne rosacea, erythematous telangiectatic type Surgical History History of hysterectomy kept ovaries History of left knee surgery Family History Father Chronic kidney disease (CKD) CAD (coronary artery disease) Denies family history of Diabetes Dementia Hypertension Stroke Social History Smoking and tobacco/nicotine status: never used tobacco/nicotine Alcohol intake: never Substance/Drug Use: never Additional social history: 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 and she wants full code as discussed today with Roe Rodriguez MD on 12/17/2024 Lives independently: Yes Household members: children Marital status: / Marital status details: 2019 Number of children: 3 Current occupational status: retired Physical Exam Const: COMMON NORMALS: no acute distress, patient oriented x3 and no limitations GENERAL APPEARANCE: cooperative, comfortable and well developed ORIENTATION/CONSCIOUSNESS: Yes awake, Yes oriented to person, Yes oriented to place and Yes oriented to time HENMT: COMMON NORMALS: normocephalic, atraumatic and hearing grossly normal bilaterally HEAD & SCALP: normocephalic and atraumatic Eye: COMMON NORMALS: Equal, round and reactive pupils present, EOMs intact bilaterally and conjunctivae normal CONJUNCTIVA: Yes conjunctivae normal PUPIL: Yes Equal, round and reactive pupils present Neck/C-Spine: COMMON NORMALS: full ROM, supple and no JVD Resp: COMMON NORMALS: normal respiratory effort, No retractions, No use of accessory muscles and clear to auscultation bilaterally AUSCULTATION: clear to auscultation bilaterally Cardio: COMMON NORMALS: no JVD, regular rate, regular rhythm, No clicks present (Cardio), No murmurs present (Cardio) and No rub (Cardio) RATE: regular rate RHYTHM: regular rhythm GI: COMMON NORMALS: Normal to inspection, nondistended, normoactive bowel sounds present, Soft to palpation and non-tender AUSCULTATION: Yes normoactive bowel sounds PALPATION: Yes Soft to palpation RECTAL EXAM: deferred Extremity: COMMON NORMALS: normal to inspection, full ROM and capillary refill normal Neuro: COMMON NORMALS: patient oriented x3, moves all extremities, no focal motor deficits and no sensory deficits noted SENSORIUM/ORIENTATION: Yes oriented to person, Yes oriented to place and Yes oriented to time Psych: COMMON NORMALS: mental status grossly normal and Normal thought process present THOUGHT PROCESS: Normal thought process present Skin: COMMON NORMALS: no rashes or lesions noted GENERAL SKIN EXAM: no rashes or lesions noted Course Vital Signs: Vital signs: Vital Signs Temperature 97.6 F 01/24/25 20:00 Pulse Rate 76 01/25/25 00:46 Respiratory Rate 16 01/25/25 00:46 Blood Pressure 163/86 01/25/25 00:46 Pulse Oximetry 93 01/25/25 00:46 Oxygen Delivery Me thod Room Air 01/25/25 00:16 MDM - General Adult Medical Decision Making Patient presenting with uncontrollable hypertension, states that she takes multiple medications at home, amlodipine, carvedilol, losartan, and clonidine as a rescue medication, but has not been able to bring her blood pressure down today. Of note a month ago she was seen in the emergency department had cerebral infarct and was given tPA, takes aspirin daily. Blood pressure 210/100 with triage, she is given 20 mg IV labetalol which does bring it down somewhat but eventually creeps back up into 190s systolic. She had no associated symptoms to report, specifically no signs of endorgan damage on exam. Her labs are also reassuring showing negative delta troponin, and reassuring metabolic panel. Chest x-ray not showing any acute findings and EKG also reassuring. She is given another 10 mg IV labetalol which again helps briefly but blood pressure noted to creep back up. I do suspect element of anxiety, patient also recently has been sick with COVID. I discussed the patient multiple times in regards to disposition, she is stating to me that she does not feel safe going home with her blood pressure stating that it never acts like this and she is just concerned that she will come right back. For this I spoke with hospitalist, Dr. Adan, agreeing to except patient for observation overnight. Lab Data 01/24/25 20:20 01/24/25 20:20 Radiology Impressions Chest X-Ray 01/24/25 20:25 IMPRESSION: Emphysematous changes, negative for infiltrate. Laboratory Results WBC 8.59 10^3/uL (3.29-11.43) 01/24/25 20:20 RBC 4.12 10^6/uL (3.85-5.65) 01/24/25 20:20 Hgb 12.00 g/dL (11.27-16.99) 01/24/25 20:20 Hct 35.2 % (36-47) L 01/24/25 20:20 MCV 85.4 fl (85-98) 01/24/25 20:20 MCH 29.1 pg (27-33) 01/24/25 20:20 MCHC 34.1 g/dL (30-55) 01/24/25 20:20 RDW 13.3 % (12.1-15.1) 01/24/25 20:20 Plt Count 354 10^3/cmm (157-399) 01/24/25 20:20 MPV 7.9 fL (7.4-10.4) 01/24/25 20:20 Neut % (Auto) 67.3 % 01/24/25 20:20 Lymph % (Auto) 16.5 % 01/24/25 20:20 [place] % (Auto) 9.3 % 01/24/25 20:20 Eos % (Auto) 4.3 % 01/24/25 20:20 Baso % (Auto) 0.5 % 01/24/25 20:20 Neut # (Auto) 5.78 10^3/uL (1.8-7.7) 01/24/25 20:20 Lymph # (Auto) 1.4 10^3/uL (0.8-4.8) 01/24/25 20:20 [place] # (Auto) 0.8 10^3/uL (0.2-0.9) 01/24/25 20:20 Eos # (Auto) 0.4 10^3/uL (0.0-0.8) 01/24/25 20:20 Baso # (Auto) 0.0 10^3/uL (0.0-0.1) 01/24/25 20:20 Nucleated RBC % (auto) 0 % 01/24/25 20:20 Nucleated RBCs # 0.0 /100WBC 01/24/25 20:20 Sodium 131 mmol/L (136-145) L 01/24/25 20:20 Potassium 3.9 mmol/L (3.5-5.1) 01/24/25 20:20 Chloride 92 mmol/L (98-107) L 01/24/25 20:20 Carbon Dioxide 25 mmol/L (22-29) 01/24/25 20:20 Anion Gap 17.9 (5-19) 01/24/25 20:20 BUN 16 mg/dL (8-23) 01/24/25 20:20 Creatinine 1.0 mg/dL (0.5-0.9) H 01/24/25 20:20 GFR Calculation Not Reportable 01/24/25 20:20 Glucose 116 mg/dL (65-115) H 01/24/25 20:20 Calculated Osmolality 274 mOsm/kg (285-295) L 01/24/25 20:20 Calcium 9.5 mg/dL (8.5-10.5) 01/24/25 20:20 Total Bilirubin 0.3 mg/dL (0.15-1.2) 01/24/25 20:20 AST 29 U/L (0-32) 01/24/25 20:20 ALT 71 U/L (0-33) H 01/24/25 20:20 Alkaline Phosphatase 192 U/L (35-105) H 01/24/25 20:20 Troponin T Baseline 15 ng/L (0-10) H 01/24/25 20:20 Troponin T 120 Minute 14.20 ng/L (0-10) H 01/24/25 23:01 Delta Troponin T -0.80 ABS# (0-10) L 01/24/25 23:01 Total Protein 7.6 g/dL (6.6-8.7) 01/24/25 20:20 Albumin 4.3 g/dL (3.5-5.2) 01/24/25 20:20 Globulin 3.3 g/dL (1.3-4.6) 01/24/25 20:20 Urine Color Yellow (Yellow) 01/24/25 21:30 Urine Appearance Clear (CLEAR) 01/24/25 21:30 Urine pH 7.5 (5-7) 01/24/25 21:30 Ur Specific Rush 1.004 (1.005-1.030) L 01/24/25 21:30 Urine Protein Negative (Negative) 01/24/25 21:30 Urine Glucose (UA) Negative (Normal) 01/24/25 21:30 Urine Ketones Negative (Negative) 01/24/25 21:30 Urine Blood Negative (Negative) 01/24/25 21:30 Urine Nitrate Negative (Negative) 01/24/25 21:30 Urine Bilirubin Negative (Negative) 01/24/25 21:30 Urine Urobilinogen 0.2 mg/dL (Negative) 01/24/25 21:30 Ur Leukocyte Esterase Negative (Negative) 01/24/25 21:30 Urine RBC 0-2 /hpf (0-2) 01/24/25 21:30 Urine WBC 0-5 /hpf (0-5) 01/24/25 21:30 Ur Squamous Epith Cells 0-5 /hpf (0-5) 01/24/25 21:30 Amorphous Sediment Not Reportable 01/24/25 21:30 Urine Bacteria None seen /hpf (NONE) 01/24/25 21:30 Hyaline Casts 0-4 /lpf H 01/24/25 21:30 All radiology interpretation(s) finalized by discharge Discharge Plan Discharge Patient Disposition: Placed in Observation Admit Provider: Faye Adan Clinical Impression: Hypertensive urgency Coding Level of Care Code ED Family Protection Specialist for Trev Sheppard
[2025-01-24 22:13] VITALS: BP 193/94; PULSE 72; O2SAT 95
[2025-01-24] MEDS: labetalol 5 mg/mL SDV 20mL 10 MG IVP (22:14)
--- NOTE | 2025-01-24 22:25 | ECG_ITS ---
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
[2025-01-24 23:35] LABS: Troponin 5 2HR 14.20 ng/L (0-10)
[2025-01-24 23:41] LABS: Troponin 5 2HR Delta -0.80 ABS# (0-10)
[2025-01-24 23:42] VITALS: BP 167/94; PULSE 72; RESP 18; O2SAT 94
[2025-01-24 23:45] VITALS: BP 167/94
[2025-01-25] VITALS (15 sets, daily range): BP systolic 137–187; BP diastolic 71–100; PULSE 70–90; RESP 16–20; TEMP 36.4–37; O2SAT 91–98; BMI 19.3
--- NOTE | 2025-01-25 02:25 | ECG_ITS ---
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
[2025-01-25 03:07] LABS: Troponin 5 6HR 14.15 ng/L (0-10)
[2025-01-25 03:14] LABS: Troponin 5 6HR Delta -0.85 ng/L (0-12)
--- NOTE | 2025-01-25 03:32 | PM.HP ---
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 She has residual symptoms of lightheadedness, imbalance. She has had trouble with fluctuating blood pressure at home with blood pressure readings up to 177 on occasions.she presented to the emergency room today with persistently elevated blood pressures over the past week. Reports systolic blood pressure greater than 200 in spite of taking her medications regularly. Upon arrival her blood pressure was noted to be 210/100 mmHg. She received IV labetalol which improved the blood pressure to 162/84 mmHg. Review of system positive for chronic cough over past several weeks which is thought to be related to postnasal drip for which she takes levocetirizine but states that the intervention has not helped much. Review of Systems General: Reports: 10 or more systems reviewed and unremarkable except in HPI and below Const: Denies: fever(s), chills or body aches Eyes: Denies: change in vision, blurry vision or photophobia ENMT: Reports: hoarseness; Denies: throat pain, enlarged tonsils, odynophagia or nasal congestion Card: Denies: chest pain, palpitations, irregular heart rhythm, edema, swelling of feet/ankles, lightheadedness, pre-syncope, dyspnea on exertion or orthopnea Resp: Denies: dyspnea, productive cough, non-productive cough, wheezing, stridor, pain on inspiration, change in phlegm color, hemoptysis or chest congestion GI: Denies: abdominal pain, nausea, vomiting, hematemesis, coffee ground emesis, dysphagia, heartburn, diarrhea, constipation, GI cramping, change in stool character, hematochezia or melena : Denies: flank pain, difficulty voiding, dysuria, urinary frequency, urinary urgency, urinary hesitancy or hematuria Musc: Denies: neck pain, back pain, extremity pain, joint swelling, joint warmth or deformity Neuro: Denies: headache(s), numbness in extremities, weakness in extremities, sensory changes, difficulty walking, frequent falls, dizziness, vertigo, behavioral changes, Slurred speech present or seizure-like activity Psych: Denies: anxiety, depression, suicidal ideation or homicidal ideation Endo: Denies: polyuria, polydipsia, tired all the time, cold intolerance or hot flashes Parker/Lymph: Denies: easy bruising or easy bleeding Medications/Allergies Home Medications ?Medication ?Instructions ?Recorded ?Confirmed ?Last Taken ?Type alendronate 70 mg tablet See Rx Instructions .Route 03/18/24 01/25/25 01/22/25 06:00 Rx .COMPLEX #12 tabs clonidine HCl 0.1 mg tablet 0.1 mg PO BID PRN hypertensive 07/24/24 01/25/25 01/24/25 08:00 Rx emergency #60 tabs losartan 100 mg tablet 100 mg PO DAILY #90 tabs 08/14/24 01/25/25 01/24/25 08:00 Rx amlodipine 2.5 mg tablet 2.5 mg PO DAILY #180 tabs 12/02/24 01/25/25 01/24/25 08:00 Rx Lactobacillus acidophilus 10 10,000 mmu cells PO DAILY 12/17/24 01/25/25 01/24/25 08:00 History billion cell capsule (Probiotic) cetirizine 10 mg tablet (Zyrtec) 10 mg PO DAILY PRN allergies 12/17/24 01/25/25 01/24/25 08:00 History collagen,hydrolysate 500 mg-biotin 2 cap PO DAILY 12/17/24 01/25/25 01/24/25 08:00 History 800 mcg-ascorbic acid 50 mg capsule (Collagen 1500 Plus C) magnesium oxide 250 mg PO DAILY 12/17/24 01/25/25 01/24/25 08:00 History [id number] 240 mcg-vit K1 1 tab PO DAILY 12/17/24 01/25/25 01/24/25 08:00 History 120 mcg-lutein 300 mcg-herbs tablet (Alive Women's 50 Plus Complete) omega-3 fatty acids-fish oil 684 2 cap PO DAILY 12/17/24 01/25/25 01/24/25 08:00 History mg-1,200 mg capsule,delayed release cholecalciferol (vitamin D3) 125 125 mcg PO DAILY 01/07/25 01/25/25 01/24/25 08:00 History mcg (5,000 unit) capsule aspirin 81 mg tablet,delayed 81 mg PO DAILY #100 tabs 01/14/25 01/25/25 01/24/25 08:00 Rx release (Adult Aspirin Regimen) atorvastatin 20 mg tablet (Lipitor) 20 mg PO QPM #90 tabs 01/14/25 01/25/25 01/23/25 20:00 Rx tizanidine 2 mg tablet 2 mg PO Q8H PRN muscle spasticity 01/14/25 01/25/25 01/24/25 08:00 Rx #30 tabs carvedilol 12.5 mg tablet 12.5 mg PO BID 01/25/25 01/25/25 01/24/25 08:00 History Allergies Allergy/AdvReac Type Severity Reaction Status Date / Time lorazepam (From Ativan) Allergy Unknown Verified 01/17/25 11:25 PFSH Acute PFSH: Medical History Osteoporosis Acne rosacea, erythematous telangiectatic type Surgical History History of hysterectomy kept ovaries History of left knee surgery Family History Father Chronic kidney disease (CKD) CAD (coronary artery disease) Denies family history of Diabetes Dementia Hypertension Stroke Social History Smoking and tobacco/nicotine status: never used tobacco/nicotine Alcohol intake: never Substance/Drug Use: never 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 social history: 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 and she wants full code as discussed today with Roe Rodriguez MD on 12/17/2024 Lives independently: Yes Household members: children Marital status: / Marital status details: 2019 Number of children: 3 Current occupational status: retired Vitals/I&O/Wt Last Vital Signs Temp 97.6 F 01/24/25 20:00 Pulse 76 01/25/25 00:46 Resp 16 01/25/25 00:46 BP 163/86 01/25/25 00:46 Pulse Ox 93 01/25/25 00:46 O2 Del Method Room Air 01/25/25 01:37 01/24/25 01/24/25 01/25/25 14:59 22:59 06:59 Intake Total 0 / 0 Balance 0 / 0 Weight last 48 hrs Weight 52.617 kg Weight 52.163 kg Physical Exam Narrative: General: No acute distress, AO x3 HEENT: PERRLA, pupils bilaterally equal and reactive, pallors not present Chest: Normal vesicular breath sounds, no added sounds, equal good air entry bilaterally CVS: S1-S2 regular, no murmurs, no tachycardia, no gallops, no rubs Abdomen: Soft, nontender, no organomegaly, bowel sounds present Neuro: No focal deficits, no facial deformity, AO x3, power 5/5 in all limbs Data 01/24/25 20:20 01/24/25 20:20 A&P Assessment and plan 1. Hypertension, uncontrolled: 80-year-old lady with past medical history as described above, presenting to the hospital with chief complaints of elevated blood pressure. Blood pressure was 210/100 on arrival. She received IV labetalol which improved the blood pressure to 160/82 mmHg. Will admit to observation overnight as likely that patient will need adjustment of her antihypertensive regimen. She reports several elevated blood pressure recordings over the past week. I discussed increasing amlodipine to 10 mg daily however patient states that her dose of amlodipine was cut back to 2.5 mg daily by cardiology recently due to side effect of lower extremity swelling. In this setting we will discontinue amlodipine and instead start hydralazine 25 mg p.o. every 8 hours and monitor for blood pressure improvement. continue losartan 100 mg p.o. daily, continue carvedilol 12.5 mg p.o. twice daily. Add hydralazine 10 mg IV every 6 hours as needed. She will likely need adjusment of oral hypertensives based on BP trend. She has a sleep study ordered as outpatient 2. Chronic cough: Appears to be going on a few months. Chest x-ray without any mass lesions. Noted emphysematous changes.Patient denies h/o smoking. trial protonix for possibiliyt of GERD contributing to symptoms Plan: DVT ppx: low risk Full code PDMP PDMP Reviewed: Not Reviewed Attestations Medical Necessity Statement*: less than 2 midnight stay is anticipated Coding Level of Care Code Acute Code for [facility] Fwd Diagnoses Hypertension, uncontrolled I10 Chronic cough R05.3
--- NOTE | 2025-01-25 04:46 | USR_ITS ---
PROCEDURE INFORMATION: Exam: US Abdomen, Limited; Right Upper Quadrant Exam date and time: 01/25/2025 6:06 AM Age: 80 years old Clinical indication: Abdominal pain; Acute; Additional info: Transminitis TECHNIQUE: Imaging protocol: Real time ultrasound of the abdomen with image documentation. Limited exam focused on the right upper quadrant. COMPARISON: No relevant prior studies available. FINDINGS: Liver: Normal. 11.3 cm in length. No masses. Hepatopetal flow in the portal vein. Gallbladder: Normal. No gallstones. There is no gallbladder wall thickening. Biliary ducts: Normal. Common bile duct measures 3 mm. No stones. No dilation. Pancreas: Visualized pancreas is unremarkable. Right kidney: Normal. 9.7 cm in length. No mass. No hydronephrosis. US/US liver 19861 IMPRESSION: No apparent sonographic abnormality.
[2025-01-25] MEDS: hyDRALAzine 20 mg/mL INJ 1 mL 10 MG IVP ×2 (05:28→21:00)
[2025-01-25 06:49] LABS: Hepatitis A Antibody IgM Non-Reactive (Nonreactive); Hepatitis B Surface Antigen Non-Reactive (Nonreactive)
[2025-01-25 10:58] LABS: Coronavirus 229E,HKU1,NL63,OC4 Not Detected (NOT DETECT); Parainfluenza Virus Type 1 Not Detected (NOT DETECT); Parainfluenza Virus Type 2 Not Detected (NOT DETECT); Parainfluenza Virus Type 3 Not Detected (NOT DETECT); Parainfluenza Virus Type 4 Not Detected (NOT DETECT); SARS-COV-2 Not Detected (NOT DETECT)
--- NOTE | 2025-01-25 12:06 | PC.CHAP ---
Pastoral Care Encounter/Spiritual Assessment Type of Contact [] Declined correctional substance abuse counselor visit [] Patient/Family/Request visit [] Outpatient visit [] Follow-up visit [] Physician referral [] Code/Alert [x] Routine visit [] Staff referral [] Actively dying [] Patient sleeping [] Family support [] [] Out of room [] Palliative care [] [] Receiving care in room [] Pre-surgical visit [] Trauma [] Long length of stay [] ICU visit [] Other: Relational/Emotional Strength [x] Patient feels connected with others/family/visitors/staff [] Distress [] Loneliness/isolation [] Abandonment Spirituality of Patient [x] Person of Claribel [] Attends Holiness of their Claribel [] Believes in Prayer [] Reads Bible or Moravian materials [] There are Spiritual issues to be addressed Occup Therapist Interventions [x] Prayer [] Active listening [] Non-anxious presence [] Spiritual/emotional support [] Crisis/trauma care [] Spiritual counseling [] Bereavement support [] Provided bereavement packet [] Provided Bible/devotional materials [] Provided toy/stuffed animal, coloring book to patient or family member [] Provided Communion [] Anointing/[place] [] Salvation [] Completed spiritual assessment [] Other: Impact on Illness or Injury [] Angry [] Fearful [] Anxious [] Often cries [] Exhaustion [] Unable to work [] Unable to attend muslim [] Unable to walk/stand [] Unable to read [] Unable to drive [] Unable to eat/drink [] Unable to sleep [] Unable to be with family [] Patient intubated [] Other: Summary Time spent with patient
--- NOTE | 2025-01-25 19:05 | P.PN_ITS ---
Subjective 2 Subjective: Patient was seen this morning, denies any chest pain, no palpitations, no strokelike symptoms, no nausea, vomiting, abdominal pain, no lightheadedness, no dizziness Vitals/I&O/Wt Last Vital Signs Temp 97.8 F 01/25/25 16:00 Pulse 84 01/25/25 16:00 Resp 16 01/25/25 16:00 BP 137/71 01/25/25 16:00 Pulse Ox 95 01/25/25 16:00 O2 Del Method Room Air 01/25/25 16:00 01/25/25 01/25/25 01/25/25 06:59 14:59 22:59 Intake Total 686 / 686 Output Total 1500 / 1500 400 / 400 Balance -1500 / -1500 286 / 286 Weight last 48 hrs Weight 52.163 kg Weight 52.617 kg Weight 52.163 kg Physical Exam 2 Const: COMMON NORMALS: no acute distress and patient oriented x3 Resp: COMMON NORMALS: normal respiratory effort, No retractions, No use of accessory muscles and clear to auscultation bilaterally AUSCULTATION: clear to auscultation bilaterally Cardio: COMMON NORMALS: regular rate, regular rhythm, S1 normal heart sound present and S2 normal heart sound present RATE: regular rate RHYTHM: r egular rhythm HEART SOUNDS: S1 normal heart sound present and S2 normal heart sound present GI: COMMON NORMALS: Normal to inspection, nondistended, normoactive bowel sounds present and non-tender Extremity: COMMON NORMALS: no pedal edema Neuro: COMMON NORMALS: patient oriented x3 Psych: COMMON NORMALS: mental status grossly normal Data 01/24/25 20:20 01/24/25 20:20 A&P Assessment and plan 1. Hypertension, uncontrolled: Carvedilol 12.5 twice daily Amlodipine 5 mg daily Hydralazine 25 mg p.o. every 8 hours 2. Chronic cough: Monitor Plan: DVT ppx: low risk Full code PDMP PDMP Reviewed: Not Reviewed Attestations 2 Medical Necessity Statement*: Requires hospitalization for uncontrolled hypertension requiring inpatient monitoring Diagnoses Hypertension, uncontrolled I10 Chronic cough R05.3
[2025-01-25 20:19] LABS: Procalcitonin 0.03 ng/mL (0-0.5)
--- NOTE | 2025-01-25 21:34 | CTR_ITS ---
PROCEDURE INFORMATION: Exam: CT Head Without Contrast Exam date and time: 01/25/2025 10:09 PM Age: 80 years old Clinical indication: Pain; Headache; C/O PATEL with hypertension; Additional info: Elevated BP, headache TECHNIQUE: Imaging protocol: Computed tomography of the head without contrast. Radiation optimization: All CT scans at this facility use at least one of these dose optimization techniques: automated exposure control; mA and/or kV adjustment per patient size (includes targeted exams where dose is matched to clinical indication); or iterative reconstruction. COMPARISON: MR angio head wo con [id number] 12/25/2024 10:17 AM RADIATION DOSE METRICS: Total DLP (mGy-cm): 990.13 FINDINGS: Brain: No acute infarction, hemorrhage, mass, or extra-axial fluid collection is identified. No midline shift. Cerebral ventricles: No hydrocephalus. Paranasal sinuses: Paranasal sinuses are grossly clear. Mastoid air cells: Mastoid air cells are grossly clear. Bones: Calvarium appears intact. Soft tissues: Unremarkable. CT/CT head wo con* [id number] IMPRESSION: No acute intracranial abnormality.
[2025-01-25] MEDS: morphine 4 mg/mL SDV 1 mL 2 MG IVP (21:46)
--- NOTE | 2025-01-25 22:09 | PC.NURSE ---
Pt. off unit at this time via wheelchair for head CT with DACIA Kline.
[2025-01-26] VITALS (8 sets, daily range): BP systolic 122–173; BP diastolic 68–82; PULSE 70–86; RESP 15–17; TEMP 36.3–36.9; O2SAT 92–95
[2025-01-26 04:54] LABS: Alanine Aminotransferase 45 U/L (0-33); Albumin Level 3.7 g/dL (3.5-5.2); Alkaline Phosphatase 153 U/L (35-105); Anion Gap 14.8 (5-19); Aspartate Amino Transferase 20 U/L (0-32); Blood Urea Nitrogen 11 mg/dL (8-23); Calcium 9.0 mg/dL (8.5-10.5); Carbon Dioxide 23 mmol/L (22-29); Chloride 95 mmol/L (98-107); Creatinine Clr Calc Pharmacy 50.9122; Globulin 2.8 g/dL (1.3-4.6); Glucose 95 mg/dL (65-115); Osmolality Calculated 267 mOsm/kg (285-295); Potassium 3.8 mmol/L (3.5-5.1); Sodium 129 mmol/L (136-145); Total Protein 6.5 g/dL (6.6-8.7)
[2025-01-26 06:02] LABS: Hematocrit 33.4 % (36-47); Hemoglobin 11.30 g/dL (11.27-16.99); Mean Corpuscular HGB Conc 33.8 g/dL (30-55); Mean Corpuscular Hemoglobin 29.2 pg (27-33); Mean Corpuscular Volume 86.3 fl (85-98); Nucleated Red Blood Cells % 0 %; Platelet Count 344 10^3/cmm (157-399); Red Blood Count 3.87 10^6/uL (3.85-5.65); White Blood Count 8.66 10^3/uL (3.29-11.43)
[2025-01-26 10:22] LABS: Urine Random Sodium 61 mmol/L
[2025-01-26 12:12] LABS: Sodium 126 mmol/L (136-145)
--- NOTE | 2025-01-26 14:43 | P.PN_ITS ---
Vitals/I&O/Wt Last Vital Signs Temp 97.6 F 01/26/25 08:00 Pulse 79 01/26/25 12:00 Resp 16 01/26/25 12:00 BP 129/72 01/26/25 12:00 Pulse Ox 95 01/26/25 12:00 O2 Del Method Room Air 01/26/25 08:00 01/25/25 01/26/25 01/26/25 22:59 06:59 14:59 Intake Total 360 / 360 Output Total 550 / 950 700 / 1650 500 / 500 Balance -550 / -264 -700 / -964 -140 / -140 Weight last 48 hrs Weight 53.615 kg Weight 52.163 kg Weight 52.617 kg Weight 52.163 kg Physical Exam 2 Const: COMMON NORMALS: no acute distress and patient oriented x3 Resp: COMMON NORMALS: normal respiratory effort, No retractions, No use of accessory muscles and clear to auscultation bilaterally AUSCULTATION: clear to auscultation bilaterally Cardio: COMMON NORMALS: regular rate, regular rhythm, S1 normal heart sound present and S2 normal heart sound present RATE: regular rate RHYTHM: r egular rhythm HEART SOUNDS: S1 normal heart sound present and S2 normal heart sound present GI: COMMON NORMALS: Normal to inspection, nondistended, normoactive bowel sounds present and non-tender Extremity: COMMON NORMALS: no pedal edema Neuro: COMMON NORMALS: patient oriented x3 Psych: COMMON NORMALS: mental status grossly normal Data 01/26/25 05:53 01/26/25 11:36 A&P Assessment and plan 1. Hypertension, uncontrolled: Carvedilol 12.5 twice daily Amlodipine 5 mg daily Hydralazine 25 mg p.o. every 8 hours 2. Chronic cough: Monitor 3. Hyponatremia: - Low serum osmolality of 267 -urine sodium 60 - Serum sodium 126, on recheck this afternoon - Restrict fluid intake - neurochecks, seizure precautions - Plan: DVT ppx: low risk Full code PDMP PDMP Reviewed: Not Reviewed Attestations 2 Medical Necessity Statement*: Patient requires hospitalization for hyponatremia 126, monitor serum sodium every 6 hours Diagnoses Hypertension, uncontrolled I10 Chronic cough R05.3 Hyponatremia E87.1
[2025-01-26 18:11] LABS: Sodium 126 mmol/L (136-145)
[2025-01-26] MEDS: methylPREDNISolone sod succ 125 mg/2 mL INJ IVP (18:40)
[2025-01-26 22:38] LABS: Sodium 127 mmol/L (136-145)
[2025-01-27 04:00] VITALS: BP 151/81; PULSE 89; RESP 16; TEMP 36.5; O2SAT 98
[2025-01-27 04:08] LABS: Hematocrit 37.5 % (36-47); Hemoglobin 12.90 g/dL (11.27-16.99); Mean Corpuscular HGB Conc 34.4 g/dL (30-55); Mean Corpuscular Hemoglobin 29.9 pg (27-33); Mean Corpuscular Volume 86.8 fl (85-98); Nucleated Red Blood Cells % 0 %; Platelet Count 403 10^3/cmm (157-399); Red Blood Count 4.32 10^6/uL (3.85-5.65); White Blood Count 12.32 10^3/uL (3.29-11.43)
[2025-01-27 04:10] LABS: Blood Urea Nitrogen 18 mg/dL (8-23); Calcium 9.1 mg/dL (8.5-10.5); Carbon Dioxide 22 mmol/L (22-29); Chloride 92 mmol/L (98-107); Creatinine Clr Calc Pharmacy 45.2553; Glucose 182 mg/dL (65-115); Osmolality Calculated 267 mOsm/kg (285-295); Sodium 125 mmol/L (136-145)
[2025-01-27 04:14] LABS: Anion Gap 15.2 (5-19); Potassium 4.2 mmol/L (3.5-5.1)
[2025-01-27 07:40] VITALS: BP 151/82; PULSE 97; RESP 16; TEMP 36.6; O2SAT 95
[2025-01-27 08:00] VITALS: BP 151/82
[2025-01-27 09:24] VITALS: BP 151/82
[2025-01-27 10:34] LABS: Sodium 129 mmol/L (136-145)
--- NOTE | 2025-01-27 11:03 | P.DS_ITS ---
Discharge Providers Date of Admission: 01/25/25 00:24 Date of Discharge: January 27, 2025 Attending Provider at Admission: Faye Adan MD Attending Provider at Discharge: Marcus Arias MD Primary Care Provider: Eduarda Pagan MD Diagnoses at Discharge Discharge Diagnosis 1. Hypertension, uncontrolled: 2. Chronic cough: 3. Hyponatremia: Reason for Visit Reason for Visit: High Blood Pressure Hospital Course Hospital Course Bette Dawson is a 80 year old female with hypertension, history of posterior circulation stroke requiring thrombolytics, who presents [facility] due to elevated blood pressure Patient was admitted to [facility] for uncontrolled hypertension, required titration of blood pressure medications, blood pressure has been controlled on Coreg 12.5 twice daily, amlodipine 5 mg daily, hydralazine 25 mg p.o. every 8 hours, discharged with close follow-up with primary care provider as outpatient Patient's hospitalization was complicated by headache/migraine, CT head no acute findings, improved with tramadol. Patient will be discharged on a short supply of tramadol to be used as needed for headaches, do not drive or operate heavy machinery or drink while taking medication Patient is complicated by acute on chronic hyponatremia serum sodium down to 125, improved with fluid restrictions, salt tablets; will be discharged on fluid restrictions, salt tablet, follow-up with primary care provider as outpatient to recheck serum sodium Physical Exam Const: COMMON NORMALS: no acute distress and patient oriented x3 Resp: COMMON NORMALS: normal respiratory effort, No retractions, No use of accessory muscles and clear to auscultation bilaterally AUSCULTATION: clear to auscultation bilaterally Cardio: COMMON NORMALS: regular rate, regular rhythm, S1 normal heart sound present and S2 normal heart sound present RATE: regular rate RHYTHM: regular rhythm HEART SOUNDS: S1 normal heart sound present and S2 normal heart sound present GI: COMMON NORMALS: Normal to inspection, nondistended, normoactive bowel sounds present and non-tender Extremity: COMMON NORMALS: no pedal edema Neuro: COMMON NORMALS: patient oriented x3, CN's II-XII intact bilaterally and moves all extremities Psych: COMMON NORMALS: mental status grossly normal Discharge Data Studies Completed and Pending Completed Studies During Hospitalization Category Date Time Status CT head wo con* [id number] Routine Cat Scan 01/25/25 21:34 Completed XR chest 1V portable [id number] Stat Exams 01/24/25 20:25 Completed US liver [id number] Routine Ultrasound 01/25/25 04:46 Completed Pending at discharge Category Date Time Status LAURA Profile Rheumatology Stat Lab 01/25/25 19:45 Received Basic Metabolic Panel AM LABS Lab 01/28/25 04:00 Ordered Basic Metabolic Panel AM LABS Lab 01/29/25 04:00 Ordered Complete Blood Count w/Auto AM LABS Lab 01/28/25 04:00 Ordered Complete Blood Count w/Auto AM LABS Lab 01/29/25 04:00 Ordered Sodium Q6H Lab 01/27/25 16:00 Ordered Sodium Q6H Lab 01/27/25 22:00 Ordered Radiology Impressions Chest X-Ray 01/24/25 20:25 IMPRESSION: Emphysematous changes, negative for infiltrate. Liver Ultrasound 01/25/25 04:46 IMPRESSION: No apparent sonographic abnormality. Head CT 01/25/25 21:34 IMPRESSION: No acute intracranial abnormality. Laboratory Results WBC 12.32 10^3/uL (3.29-11.43) H 01/27/25 02:18 Corrected WBC Cancelled 01/26/25 02:57 RBC 4.32 10^6/uL (3.85-5.65) 01/27/25 02:18 Hgb 12.90 g/dL (11.27-16.99) 01/27/25 02:18 Hct 37.5 % (36-47) 01/27/25 02:18 MCV 86.8 fl (85-98) 01/27/25 02:18 MCH 29.9 pg (27-33) 01/27/25 02:18 MCHC 34.4 g/dL (30-55) 01/27/25 02:18 RDW 13.5 % (12.1-15.1) 01/27/25 02:18 Plt Count 403 10^3/cmm (157-399) H 01/27/25 02:18 MPV 8.9 fL (7.4-10.4) 01/27/25 02:18 Gran % Cancelled 01/26/25 02:57 Neut % (Auto) 90.7 % 01/27/25 02:18 Lymph % (Auto) 6.3 % 01/27/25 02:18 [place] % (Auto) 0.8 % 01/27/25 02:18 Eos % (Auto) 0.1 % 01/27/25 02:18 Baso % (Auto) 0.2 % 01/27/25 02:18 Neut # (Auto) 11.16 10^3/uL (1.8-7.7) H 01/27/25 02:18 Lymph # (Auto) 0.8 10^3/uL (0.8-4.8) 01/27/25 02:18 [place] # (Auto) 0.1 10^3/uL (0.2-0.9) L 01/27/25 02:18 Eos # (Auto) 0.0 10^3/uL (0.0-0.8) 01/27/25 02:18 Baso # (Auto) 0.0 10^3/uL (0.0-0.1) 01/27/25 02:18 Absolute Gran (auto) Cancelled 01/26/25 02:57 Nucleated RBC % (auto) 0 % 01/27/25 02:18 Nucleated RBCs # 0.0 /100WBC 01/27/25 02:18 ESR 17 mm/hr (0-15) H 01/25/25 19:45 Sodium 129 mmol/L (136-145) L 01/27/25 10:05 Potassium 4.2 mmol/L (3.5-5.1) 01/27/25 02:18 Chloride 92 mmol/L (98-107) L 01/27/25 02:18 Carbon Dioxide 22 mmol/L (22-29) 01/27/25 02:18 Anion Gap 15.2 (5-19) 01/27/25 02:18 BUN 18 mg/dL (8-23) 01/27/25 02:18 Creatinine 0.9 mg/dL (0.5-0.9) 01/27/25 02:18 GFR Calculation Not Reportable 01/27/25 02:18 Glucose 182 mg/dL (65-115) H 01/27/25 02:18 Calculated Osmolality 267 mOsm/kg (285-295) L 01/27/25 02:18 Calcium 9.1 mg/dL (8.5-10.5) 01/27/25 02:18 Total Bilirubin 0.4 mg/dL (0.15-1.2) 01/26/25 02:57 AST 20 U/L (0-32) 01/26/25 02:57 ALT 45 U/L (0-33) H 01/26/25 02:57 Alkaline Phosphatase 153 U/L (35-105) H 01/26/25 02:57 Troponin T Baseline 15 ng/L (0-10) H 01/24/25 20:20 Troponin T 120 Minute 14.20 ng/L (0-10) H 01/24/25 23:01 Delta Troponin T -0.80 ABS# (0-10) L 01/24/25 23:01 Troponin T Hi Sens 6Hr 14.15 ng/L (0-10) H 01/25/25 02:36 Troponin T Hi Sens 6Hr Delta -0.85 ng/L (0-12) L 01/25/25 02:36 C-Reactive Protein 6.7 mg/L (0.0-4.9) H 01/25/25 19:45 Total Protein 6.5 g/dL (6.6-8.7) L 01/26/25 02:57 Albumin 3.7 g/dL (3.5-5.2) 01/26/25 02:57 Globulin 2.8 g/dL (1.3-4.6) 01/26/25 02:57 Procalcitonin 0.03 ng/mL (0-0.5) 01/25/25 19:45 Urine Color Yellow (Yellow) 01/24/25 21:30 Urine Appearance Clear (CLEAR) 01/24/25 21:30 Urine pH 7.5 (5-7) 01/24/25 21:30 Ur Specific [place] 1.004 (1.005-1.030) L 01/24/25 21:30 Urine Protein Negative (Negative) 01/24/25 21:30 Urine Glucose (UA) Negative (Normal) 01/24/25 21:30 Urine Ketones Negative (Negative) 01/24/25 21:30 Urine Blood Negative (Negative) 01/24/25 21:30 Urine Nitrate Negative (Negative) 01/24/25 21:30 Urine Bilirubin Negative (Negative) 01/24/25 21:30 Urine Urobilinogen 0.2 mg/dL (Negative) 01/24/25 21:30 Ur Leukocyte Esterase Negative (Negative) 01/24/25 21:30 Urine RBC 0-2 /hpf (0-2) 01/24/25 21:30 Urine WBC 0-5 /hpf (0-5) 01/24/25 21:30 Ur Squamous Epith Cells 0-5 /hpf (0-5) 01/24/25 21:30 Amorphous Sediment Not Reportable 01/24/25 21:30 Urine Bacteria None seen /hpf (NONE) 01/24/25 21:30 Hyaline Casts 0-4 /lpf H 01/24/25 21:30 Ur Random Sodium 61 mmol/L 01/26/25 09:51 Coronavirus 229E (PCR) Not detected (NOT DETECT) 01/25/25 09:00 Hepatitis A IgM Ab Non-reactive (Nonreactive) 01/24/25 20:20 Hep Bs Antigen Non-reactive (Nonreactive) 01/24/25 20:20 Hep Bs Antibody < 3.5 (11.5-1000) L 01/24/25 20:20 Hep B Core Total Ab Non-reactive (Nonreactive) 01/24/25 20:20 Hepatitis C Antibody Non-reactive (Nonreactive) 01/24/25 20:20 SARS-CoV-2 (PCR) Not detected (NOT DETECT) 01/25/25 09:00 Vitals Last Vital Signs Temp 97.9 F 01/27/25 07:40 Pulse 97 01/27/25 07:40 Resp 16 01/27/25 07:40 BP 151/82 01/27/25 09:24 Pulse Ox 95 01/27/25 07:40 O2 Del Method Room Air 01/27/25 07:40 Discharge Plan Discharge Patient Disposition: Home Condition: Stable Prescriptions: New tramadol 50 mg Tablet 50 mg PO Q24H PRN (Reason: Moderate Pain) 5 Days Qty: 5 0RF hydralazine 50 mg Tablet 25 mg PO Q8H 30 Days Qty: 45 0RF amlodipine 5 mg Tablet 5 mg PO DAILY 30 Days Qty: 30 0RF sodium chloride 1,000 mg Tablet,Soluble 1,000 mg PO BID 3 Days Qty: 6 0RF benzonatate 100 mg Capsule 100 mg PO TID PRN (Reason: Cough) 5 Days Qty: 15 0RF Continued losartan 100 mg tablet 100 mg PO DAILY Qty: 90 3RF tizanidine 2 mg tablet 2 mg PO Q8H PRN (Reason: muscle spasticity) Qty: 30 0RF atorvastatin [Lipitor] 20 mg tablet 20 mg PO QPM Qty: 90 0RF aspirin [Adult Aspirin Regimen] 81 mg tablet,delayed release (DR/EC) 81 mg PO DAILY Qty: 100 0RF cholecalciferol (vitamin D3) 125 mcg (5,000 unit) capsule 125 mcg PO DAILY alendronate 70 mg tablet See Rx Instructions .ROUTE .COMPLEX Qty: 12 3RF Dose Instruction: TAKE 1 TABLET BY MOUTH ONE TIME A WEEK Rx Instructions: TAKE 1 TABLET BY MOUTH ONE TIME A WEEK clonidine HCl 0.1 mg tablet 0.1 mg PO BID PRN (Reason: hypertensive emergency) Qty: 60 0RF cetirizine [Zyrtec] 10 mg Tablet 10 mg PO DAILY PRN (Reason: allergies) magnesium oxide 250 mg magnesium Tablet 250 mg PO DAILY omega-3 fatty acids-fish oil 684-1,200 mg Capsule,Delayed Release(Dr/Ec) 2 cap PO DAILY Probiotic 10 billion cell Capsule 10,000 mmu cells PO DAILY Collagen 1500 Plus C 500 mg-800 mcg- 50 mg Capsule 2 cap PO DAILY Alive Women's 50 Plus Complete 240-120-300 mcg Tablet 1 tab PO DAILY carvedilol 12.5 mg tablet 12.5 mg PO BID Rx Instructions: 1 tab in AM and 2 tabs at hs Discontinued amlodipine 2.5 mg tablet 2.5 mg PO DAILY Qty: 180 3RF Rx Instructions: Take 5 mg (2 tablet) in the evening for blood pressure of 160/90 or above [employer] OK for DC: Cardiology Discharge Order = DC NOW: Discharge Order (Routine); Ordered 01/27/25 Ordered By: Marcus Arias Referrals: Eduarda Pagan MD [Primary Care Provider, Family Practice] Discharge Diet: Cardiac Discharge Activity: Resume usual activity Patient Instructions: Opioid Safety, Patient Portal & [place] Instructions Activity Restrictions/Additional Instructions: - Please monitor blood pressure 2 times daily - Record them and a blood pressure log at - If your systolic blood pressures greater than 180 or diastolic is greater than 100 - You can increase the hydralazine to 25 mg every 6 hours - If your blood pressure remains elevated beyond this, systolic greater than 180 or diastolic under 100 can increase amlodipine to 10 mg daily - If your blood pressure remains elevated beyond this, you can use clonidine as needed for systolic blood pressure greater than 180 or diastolic in the 100 - Follow-up with primary care provider this week Discharge Attestations Time Spent in Discharge Care*: greater than 30 min Quality Metrics Clinical Quality Measures [ No reported AMI, CVA or VTE this stay] Coding Level of Care Code 34565 Total time (in minutes) for Discharge: 45 Diagnoses Hypertension, uncontrolled I10 Chronic cough R05.3 Hyponatremia E87.1
[2025-01-27 11:26] VITALS: BP 120/67; PULSE 94; RESP 15; TEMP 36.8; O2SAT 94
[2025-01-27 11:35] LABS: COMPLEMENT COMPONENT C3C 121 mg/dL (83-193); COMPLEMENT COMPONENT C4C 22 mg/dL (15-57)
[2025-01-27 12:10] VITALS: BP 120/64; PULSE 94; RESP 15; TEMP 36.8; O2SAT 94
[2025-01-27 14:49] LABS: COMPLEMENT, TOTAL (CH50) 54 U/mL (31-60)
[2025-01-28 03:25] LABS: CENTROMERE B ANTIBODY <1.0 NEG AI (<1.0 NEG); JO-1 ANTIBODY <1.0 NEG AI (<1.0 NEG); RNP ANTIBODY <1.0 NEG AI (<1.0 NEG); SCL-70 ANTIBODY <1.0 NEG AI (<1.0 NEG); SS-B <1.0 NEG AI (<1.0 NEG)
[2025-01-29 09:34] LABS: THYROID PEROXIDASE ANTIBODIES <1 IU/mL (<9)
== END 2025-01-27 12:12 | disposition home or self-care (01) ==
LOC: ER 01-25 00:39 → MEDSURG 01-25 00:43
PROVIDERS: Admitting Provider Student in an Organized Health Care Education/Training Program; Emergency Provider Physician Assistant; PCP Family Medicine; Visit Provider Family Medicine
DX: I10 Essential (primary) hypertension (principal); R05.3 Chronic cough; E87.1 Hypo-osmolality and hyponatremia; Z79.82 Long term (current) use of aspirin; Z86.73 Personal history of transient ischemic attack (TIA), and cerebral infarction without residual deficits
CPT/HCPCS: 36415; 70450; 71045; 76705; 80048; 80053; 81001; 84145; 84295; 84300; 84484; 85025; 85651; 86140; 86160; 86162; 86235; 86255; 86376; 86705; 86706; 86709; 86803; 87340; 87635; 93005; 96374; 96375; 96376; 99285; G0378; J0360; J2270; J2919; J3490; J9999

== ENCOUNTER → 2025-02-03 14:57 | Outpatient (BNVA) | payer MEDICARE, OTHER, SELFPAY | PROVIDERS: PCP Family Medicine; Visit Provider Family Medicine | DX: E87.1 Hypo-osmolality and hyponatremia (principal) | CPT/HCPCS: 80053 ==

== ENCOUNTER 2025-02-04 12:36 | Outpatient (CLI) | payer MEDICARE, OTHER, SELFPAY | END 2025-02-04 12:37 | disposition home or self-care (01) | LOC: LAB 12:39 | PROVIDERS: PCP Family Medicine; Visit Provider Internal Medicine Cardiovascular Disease | DX: I10 Essential (primary) hypertension (principal); I49.3 Ventricular premature depolarization; R07.9 Chest pain, unspecified; Z79.82 Long term (current) use of aspirin | CPT/HCPCS: 36415; 82533; 99214 ==

== ENCOUNTER 2025-02-05 10:51 | Outpatient (CLI) | payer MEDICARE, OTHER, SELFPAY ==
--- NOTE | 2025-02-05 11:00 | MR_ITS ---
WS: [id number] MRI HEAD WITHOUT CONTRAST TECHNIQUE: Sagittal T1, T2 axial, T2 axial FLAIR, axial and coronal T1 images, axial susceptibility weighted imaging, axial diffusion weighted images, and coronal T2 images were obtained. CLINICAL INFORMATION: R42 - Dizziness and giddiness COMPARISON: MRI 08/28/2019 FINDINGS: No evidence of restricted diffusion to suggest acute ischemia. Minimal small vessel changes. Mild parenchymal volume loss. Normal posterior fossa. Normal vascular flow voids at the skull base. No extra-axial fluid collections. Paranasal sinuses and mastoid air cells are well aerated. No hemosiderin on the susceptibility weighted images. Normal optic chiasm and pituitary infundibulum. Moderate symmetric atrophy temporal lobes and hippocampal formations. MR/MR head wo con* [id number] IMPRESSION: 1. No evidence of restricted diffusion to suggest acute ischemia. 2. Minimal small vessel changes. Mild parenchymal volume loss. 3. No hemosiderin on susceptibility-weighted images. 4. Moderate atrophy temporal lobes and hippocampal formations slightly progres sed compared 2019
== END 2025-02-05 10:52 | disposition home or self-care (01) ==
LOC: RAD 10:51
PROVIDERS: PCP Family Medicine; Visit Provider Family Medicine
DX: R42 Dizziness and giddiness (principal); I63.9 Cerebral infarction, unspecified; I63.531 Cerebral infarction due to unspecified occlusion or stenosis of right posterior cerebral artery; I63.50 Cerebral infarction due to unspecified occlusion or stenosis of unspecified cerebral artery; R07.89 Other chest pain; I10 Essential (primary) hypertension
CPT/HCPCS: 70551

== ENCOUNTER 2025-02-13 10:36 | Outpatient (CLI) | payer MEDICARE, OTHER, SELFPAY | END 2025-02-13 10:37 | disposition home or self-care (01) | LOC: LAB 10:38 | PROVIDERS: PCP Family Medicine; Visit Provider Internal Medicine Cardiovascular Disease | DX: I10 Essential (primary) hypertension (principal) | CPT/HCPCS: 82384; 82530; 82570 ==

== ENCOUNTER 2025-02-19 10:25 | Emergency (ER) | payer MEDICARE, OTHER, SELFPAY ==
--- NOTE | 2025-02-19 10:29 | XR_ITS ---
WS: [id number] XR chest 1V portable [id number] REASON FOR EXAM: cp FINDINGS: The chest appears unchanged compared to the examination of 01/24/2025. Chest is unchanged compared to 01/24/2025. Mild ectasia and tortuosity of the thoracic aorta. Normal heart size. Calcified granulomatous disease bilaterally. No acute pulmonary parenchymal or pleural abnormality. Moderate degenerative spondylosis in the mid and lower thoracic spine. XR/XR chest 1V portable [id number] IMPRESSION: Stable chest with no acute abnormality.
--- NOTE | 2025-02-19 10:29 | ECG_ITS ---
[facility]19 Pat Name: Bette Dawson Department: Room: Gender: Female Director Summer Sessions: : 1945 Requested By: Evelyne Coreas Order Number: [id number] Joana MD: Holland Olea M.D. Measurements Intervals [place] Rate: 63 P: 72 SC: 133 QRS: -14 QRSD: 90 T: 11 QT: 395 QTc: 406 Interpretive Statements SINUS RHYTHM POSSIBLE RIGHT VENTRICULAR CONDUCTION DELAY [RSR (QR) IN V1/V2] Compared to ECG 01/25/2025 02:20:32 Incomplete right bundle-branch block no longer present Electronically Signed On 02-20-2025 08:37:03 CDT by Holland Olea M.D. [email or web address]
[2025-02-19 10:35] VITALS: BP 166/83; PULSE 65; RESP 16; TEMP 36.6; O2SAT 100; BMI 18.3
--- NOTE | 2025-02-19 10:55 | W.ED.CHESTPA ---
HPI - Chest Pain General: Chief Complaint: Chest Pain Stated Complaint: dr randolph, had chest pain last night, back pain now Time Seen by Provider: 02/19/25 10:55 History of Present Illness: 80-year-old female presents to the emergency room with complaints of chest pain primarily with last evening. Stated was in her back is worse when she raised her arm up or took a deep breath she has no pain at the time she is seen. She had some discomfort when she first woke up it was worse when she moved and more notable in her back and medial left scapula. It is still somewhat reproducible with palpation at this time. She denies any associated nausea or vomiting no radiation of the pain to the neck or arm no associated shortness of breath she has not had any other episodes prior to this. Associated symptoms: Deny abdominal pain, dyspnea or fever(s) Related Data Home Medications ?Medication ?Instructions ?Recorded ?Confirmed Lactobacillus acidophilus 10 10,000 mmu cells PO DAILY 12/17/24 02/19/25 billion cell capsule (Probiotic) cetirizine 10 mg tablet (Zyrtec) 10 mg PO DAILY PRN allergies 12/17/24 02/19/25 collagen,hydrolysate 500 mg-biotin 2 cap PO DAILY 12/17/24 02/19/25 800 mcg-ascorbic acid 50 mg capsule (Collagen 1500 Plus C) magnesium oxide 250 mg PO DAILY 12/17/24 02/19/25 [id number] 240 mcg-vit K1 1 tab PO DAILY 12/17/24 02/19/25 120 mcg-lutein 300 mcg-herbs tablet (Alive Women's 50 Plus Complete) omega-3 fatty acids-fish oil 684 2 cap PO DAILY 12/17/24 02/19/25 mg-1,200 mg capsule,delayed release cholecalciferol (vitamin D3) 125 125 mcg PO DAILY 01/07/25 02/19/25 mcg (5,000 unit) capsule carvedilol 12.5 mg tablet See Rx Instructions PO BID 01/31/25 02/19/25 tramadol 50 mg tablet 50 mg PO DAILY 02/19/25 02/19/25 Previous Rx's ?Medication ?Instructions ?Recorded alendronate 70 mg tablet See Rx Instructions .Route 03/18/24 Held on 01/31/25. .COMPLEX #12 tabs Instructions: Doctor's Order clonidine HCl 0.1 mg tablet 0.1 mg PO BID PRN hypertensive 07/24/24 emergency #60 tabs losartan 100 mg tablet 100 mg PO DAILY #90 tabs 08/14/24 aspirin 81 mg tablet,delayed 81 mg PO DAILY #100 tabs 01/14/25 release (Adult Aspirin Regimen) atorvastatin 20 mg tablet (Lipitor) 20 mg PO QPM #90 tabs 01/14/25 tizanidine 2 mg tablet 2 mg PO Q8H PRN muscle spasticity 01/14/25 #30 tabs amlodipine 5 mg tablet 5 mg PO DAILY 30 days #30 tabs 01/27/25 ondansetron 4 mg disintegrating 4 mg PO Q6H PRN nausea and 01/30/25 tablet vomiting #12 tabs Allergies Allergy/AdvReac Type Severity Reaction Status Date / Time lorazepam (From Ativan) Allergy Unknown Verified 02/04/25 15:44 Review of Systems Const: Denies: fever(s) or chills Card: Denies: chest pain Resp: Denies: dyspnea GI: Denies: abdominal pain : Denies: dysuria, urinary frequency or urinary urgency Musc: Denies: neck pain or back pain Skin/Breast: Denies: rash PFSH ED PFSH: Medical History HTN (hypertension) with goal to be determined Osteoporosis Acne rosacea, erythematous telangiectatic type Surgical History History of hysterectomy kept ovaries History of left knee surgery Family History Father Chronic kidney disease (CKD) CAD (coronary artery disease) Denies family history of Diabetes Dementia Hypertension Stroke Social History Smoking and tobacco/nicotine status: never used tobacco/nicotine Alcohol intake: never Substance/Drug Use: never Additional social history: 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 and she wants full code as discussed today with Roe Rodriguez MD on 12/17/2024 Lives independently: Yes Household members: children Marital status: / Marital status details: 2019 Number of children: 3 Current occupational status: retired Physical Exam Const: COMMON NORMALS: no acute distress GENERAL APPEARANCE: cooperative and comfortable ORIENTATION/CONSCIOUSNESS: Yes awake, Yes oriented to person, Yes oriented to place and Yes oriented to time HENMT: COMMON NORMALS: normocephalic, atraumatic and hearing grossly normal bilaterally HEAD & SCALP: normocephalic and atraumatic Resp: COMMON NORMALS: normal respiratory effort, No retractions, No use of accessory muscles and clear to auscultation bilaterally AUSCULTATION: clear to auscultation bilaterally Cardio: COMMON NORMALS: regular rate, regular rhythm and No murmurs present (Cardio) RATE: regular rate RHYTHM: regular rhythm GI: COMMON NORMALS: Soft to palpation and No hepatosplenomegaly present AUSCULTATION: Yes normoactive bowel sounds PALPATION: Yes Soft to palpation, No Tenderness to palpation present (GI), No Guarding due to palpation present (GI) and Yes No hepatosplenomegaly present Extremity: COMMON NORMALS: normal to inspection, capillary refill normal, no clubbing, cyanosis or edema, no calf tenderness and no pedal edema Neuro: SENSORIUM/ORIENTATION: Yes oriented to person, Yes oriented to place and Yes oriented to time Skin: COMMON NORMALS: no rashes or lesions noted GENERAL SKIN EXAM: no rashes or lesions noted Course Vital Signs: Vital signs: Vital Signs Temperature 97.8 F 02/19/25 10:35 Pulse Rate 75 02/19/25 14:37 Respiratory Rate 16 02/19/25 10:35 Blood Pressure 145/89 02/19/25 14:37 Pulse Oximetry 94 02/19/25 14:37 Oxygen Delivery Me thod Room Air 02/19/25 12:30 MDM - Chest Pain Medical Decision Making Patient has a heart score of 4 EKG does not show any acute changes troponin is unremarkable patient's pain is reproducible with movement and with palpation. discharge patient home have her follow-up with primary care return if she has further problems. Labs imaging and chest x-ray reviewed as found in the chart chest x-ray does not show any acute abnormalities no signs of pneumonia infiltrate pneumothorax or widening of the mediastinum. Medical Records I reviewed the patient's medical records. Lab Data I reviewed the patient's lab results. 02/19/25 11:09 02/19/25 11:09 Radiology Impressions Chest X-Ray 02/19/25 10:29 IMPRESSION: Stable chest with no acute abnormality. Laboratory Results WBC 8.39 10^3/uL (3.29-11.43) 02/19/25 11:09 RBC 4.12 10^6/uL (3.85-5.65) 02/19/25 11:09 Hgb 12.20 g/dL (11.27-16.99) 02/19/25 11:09 Hct 36.4 % (36-47) 02/19/25 11:09 MCV 88.3 fl (85-98) 02/19/25 11:09 MCH 29.6 pg (27-33) 02/19/25 11:09 MCHC 33.5 g/dL (30-55) 02/19/25 11:09 RDW 14.1 % (12.1-15.1) 02/19/25 11:09 Plt Count 279 10^3/cmm (157-399) 02/19/25 11:09 MPV 8.6 fL (7.4-10.4) 02/19/25 11:09 Neut % (Auto) 76.0 % 02/19/25 11:09 Lymph % (Auto) 11.3 % 02/19/25 11:09 Mcdowell % (Auto) 11.1 % 02/19/25 11:09 Eos % (Auto) 0.8 % 02/19/25 11:09 Baso % (Auto) 0.4 % 02/19/25 11:09 Neut # (Auto) 6.38 10^3/uL (1.8-7.7) 02/19/25 11:09 Lymph # (Auto) 1.0 10^3/uL (0.8-4.8) 02/19/25 11:09 Mcdowell # (Auto) 0.9 10^3/uL (0.2-0.9) 02/19/25 11:09 Eos # (Auto) 0.1 10^3/uL (0.0-0.8) 02/19/25 11:09 Baso # (Auto) 0.0 10^3/uL (0.0-0.1) 02/19/25 11:09 Nucleated RBC % (auto) 0 % 02/19/25 11:09 Nucleated RBCs # 0.0 /100WBC 02/19/25 11:09 PT 13.60 SECONDS (12.1-14.9) 02/19/25 11:09 INR 0.97 (0.8-1.2) 02/19/25 11:09 Sodium 132 mmol/L (136-145) L 02/19/25 11:09 Potassium 4.5 mmol/L (3.5-5.1) 02/19/25 11:09 Chloride 95 mmol/L (98-107) L 02/19/25 11:09 Carbon Dioxide 24 mmol/L (22-29) 02/19/25 11:09 Anion Gap 17.5 (5-19) 02/19/25 11:09 BUN 21 mg/dL (8-23) 02/19/25 11:09 Creatinine 0.9 mg/dL (0.5-0.9) 02/19/25 11:09 GFR Calculation Not Reportable 02/19/25 11:09 Glucose 122 mg/dL (65-115) H 02/19/25 11:09 Calculated Osmolality 278 mOsm/kg (285-295) L 02/19/25 11:09 Calcium 9.7 mg/dL (8.5-10.5) 02/19/25 11:09 Total Bilirubin 0.8 mg/dL (0.15-1.2) 02/19/25 11:09 AST 19 U/L (0-32) 02/19/25 11:09 ALT 18 U/L (0-33) 02/19/25 11:09 Alkaline Phosphatase 92 U/L (35-105) 02/19/25 11:09 Troponin T Baseline 15 ng/L (0-10) H 02/19/25 11:09 Troponin T 120 Minute 13.63 ng/L (0-10) H 02/19/25 12:49 Delta Troponin T -1.37 ABS# (0-10) L 02/19/25 12:49 Total Protein 7.5 g/dL (6.6-8.7) 02/19/25 11:09 Albumin 4.9 g/dL (3.5-5.2) 02/19/25 11:09 Globulin 2.6 g/dL (1.3-4.6) 02/19/25 11:09 Lipase 19 U/L (13-60) 02/19/25 11:09 All radiology interpretation(s) finalized by discharge EKG Data EKG 1: Interpretation: EKG 02/19/2025 10:34 AM sinus rhythm. Rate of 63 DE interval 133 QTc [address] changes no T wave inversion. EKG compared to 01/25/2025. EKG 2: Interpretation: EKG 02/19/2025 1220 shows normal sinus rhythm rate of 71. Normal 148 QTc [address] changes noted. Compared to EKG done earlier same day unremarkable Clincial Decision Support The following clinical decision support tools were used to aid in care of the patient HEART Score -> History: Slightly Suspicous, EKG: Normal, Age: 65 or more yrs, Risk Factors: >/=3 Risk Factors, Troponin: Baseline Trop <16 ng/L. Resulting HEART Score: 4. Discharge Plan Discharge Patient Disposition: Home Clinical Impression: Atypical chest pain Condition: Stable Prescriptions: No Action losartan 100 mg tablet 100 mg PO DAILY Qty: 90 3RF tizanidine 2 mg tablet 2 mg PO Q8H PRN (Reason: muscle spasticity) Qty: 30 0RF atorvastatin [Lipitor] 20 mg tablet 20 mg PO QPM Qty: 90 0RF aspirin [Adult Aspirin Regimen] 81 mg tablet,delayed release (DR/EC) 81 mg PO DAILY Qty: 100 0RF cholecalciferol (vitamin D3) 125 mcg (5,000 unit) capsule 125 mcg PO DAILY ondansetron 4 mg tablet,disintegrating 4 mg PO Q6H PRN (Reason: nausea and vomiting) Qty: 12 0RF Rx Instructions: 340b please carvedilol 12.5 mg tablet See Rx Instructions PO BID Rx Instructions: orally twice a day; 1 tab in AM and 2 tabs at hs alendronate 70 mg tablet See Rx Instructions .ROUTE .COMPLEX Qty: 12 3RF Dose Instruction: TAKE 1 TABLET BY MOUTH ONE TIME A WEEK Patient Comments: on hold Rx Instructions: TAKE 1 TABLET BY MOUTH ONE TIME A WEEK clonidine HCl 0.1 mg tablet 0.1 mg PO BID PRN (Reason: hypertensive emergency) Qty: 60 0RF cetirizine [Zyrtec] 10 mg Tablet 10 mg PO DAILY PRN (Reason: allergies) magnesium oxide 250 mg magnesium Tablet 250 mg PO DAILY omega-3 fatty acids-fish oil 684-1,200 mg Capsule,Delayed Release(Dr/Ec) 2 cap PO DAILY Probiotic 10 billion cell Capsule 10,000 mmu cells PO DAILY Collagen 1500 Plus C 500 mg-800 mcg- 50 mg Capsule 2 cap PO DAILY Alive Women's 50 Plus Complete 240-120-300 mcg Tablet 1 tab PO DAILY amlodipine 5 mg Tablet 5 mg PO DAILY 30 Days Qty: 30 0RF tramadol 50 mg tablet 50 mg PO DAILY Discharge Orders: Discharge ED (Routine); Ordered 02/19/25 Ordered By: Yan Cabrera Referrals: Eduarda Pagan MD [Primary Care Provider, Family Practice] Discharge Diet: Usual diet Discharge Activity: Increase activity as tolerated Patient Instructions: Opioid Safety, Pain Management, Patient Portal & Wilfrido Instructions Activity Restrictions/Additional Instructions: [facility]. It is very important that you follow up as instructed or that you return to the Emergency Department should you have concerns or if your condition changes or worsens in any way. Emergency department visits are focused on emergent conditions, in some cases you may require further evaluation on an outpatient basis. You were seen in the emergency room with complaints of chest and back discomfort your EKG does not show any acute changes and your cardiac enzymes did not show any elevation. The nature of your pain is more suggestive of a musculoskeletal issue. We do recommend that you follow-up with your primary care doctor we will schedule you for a stress test as an outpatient to see your manager medical device after this is completed. Continue to take baby aspirin daily. (Please note that included in your discharge packet is information concerning opioid safety and pain management. This information is given to all patients were discharged from the ER regardless of their discharge diagnosis or the medicines they usually take or are prescribed.) Print Language: Turkmen Coding Level of Care Code ED [place] Attacher for Chg Fwd Heart Score HEART Score Components History: Slightly Suspicous EKG: Normal Age: 65 or more yrs Risk Factors: >/=3 Risk Factors Troponin: Baseline Trop <16 ng/L HEART Score RESULT HEART Score: 4
[2025-02-19 11:20] LABS: Hematocrit 36.4 % (36-47); Hemoglobin 12.20 g/dL (11.27-16.99); Mean Corpuscular HGB Conc 33.5 g/dL (30-55); Mean Corpuscular Hemoglobin 29.6 pg (27-33); Mean Corpuscular Volume 88.3 fl (85-98); Nucleated Red Blood Cells % 0 %; Platelet Count 279 10^3/cmm (157-399); Red Blood Count 4.12 10^6/uL (3.85-5.65); White Blood Count 8.39 10^3/uL (3.29-11.43)
[2025-02-19 11:43] LABS: INR 0.97 (0.8-1.2); Prothrombin Time 13.60 SECONDS (12.1-14.9)
[2025-02-19 11:45] LABS: Alanine Aminotransferase 18 U/L (0-33); Albumin Level 4.9 g/dL (3.5-5.2); Alkaline Phosphatase 92 U/L (35-105); Anion Gap 17.5 (5-19); Aspartate Amino Transferase 19 U/L (0-32); Blood Urea Nitrogen 21 mg/dL (8-23); Calcium 9.7 mg/dL (8.5-10.5); Carbon Dioxide 24 mmol/L (22-29); Chloride 95 mmol/L (98-107); Creatinine Clr Calc Pharmacy 44.0452; Globulin 2.6 g/dL (1.3-4.6); Glucose 122 mg/dL (65-115); Lipase 19 U/L (13-60); Osmolality Calculated 278 mOsm/kg (285-295); Potassium 4.5 mmol/L (3.5-5.1); Sodium 132 mmol/L (136-145); Total Protein 7.5 g/dL (6.6-8.7); Troponin(5th) Baseline 15 ng/L (0-10)
--- NOTE | 2025-02-19 12:20 | ECG_ITS ---
[facility] Date: 2025-02-19 Pat Name: Bette Dawson Department: Room: Gender: Female Line Repairer: : 1945 Requested By: Evelyne Coreas Order Number: [id number] Joana MD: Holland Olea M.D. Measurements Intervals [place] Rate: 71 P: 81 OH: 148 QRS: -18 QRSD: 90 T: 50 QT: 390 QTc: 424 Interpretive Statements SINUS RHYTHM POSSIBLE RIGHT VENTRICULAR CONDUCTION DELAY [RSR (QR) IN V1/V2] Compared to ECG 02/19/2025 10:34:28 No significant changes Electronically Signed On 02-20-2025 08:36:56 CDT by Holland Olea M.D. [id number]
[2025-02-19 12:30] VITALS: BP 167/85; PULSE 70; O2SAT 99
[2025-02-19 13:24] LABS: Troponin 5 2HR 13.63 ng/L (0-10); Troponin 5 2HR Delta -1.37 ABS# (0-10)
[2025-02-19 14:37] VITALS: BP 145/89; PULSE 75; O2SAT 94
== END 2025-02-19 14:39 | disposition home or self-care (01) ==
PROVIDERS: Emergency Medicine; Emergency Provider Family Medicine; PCP Family Medicine
DX: R07.89 Other chest pain (principal); Z79.82 Long term (current) use of aspirin; I10 Essential (primary) hypertension
CPT/HCPCS: 36415; 71045; 80053; 83690; 84484; 85025; 85610; 93005; 99285

== ENCOUNTER 2025-03-10 10:01 | Outpatient (CLI) | payer MEDICARE, OTHER, SELFPAY ==
--- NOTE | 2025-03-10 10:04 | MM_ITS ---
WS: [id number] DIAGNOSTIC BILATERAL DIGITAL BREAST TOMOSYNTHESIS MAMMOGRAPHY WITH CAD HISTORY: SCREENING COMPARISON: 09/28/2023, 02/18/2022, 02/10/2021 TECHNIQUE: Bilateral craniocaudad, mediolateral oblique, and mediolateral views are submitted with tomosynthesis and SM. Computer aided detection utilized. Breast composition: The breasts are extremely dense, which lowers the sensitivity of mammography. Dense fibroglandular breast tissue is unchanged over several prior studies. Benign arterial calcifications in each breast. No distortion identified. MM/MM [facility] tomosynthesis [id number] IMPRESSION: BI-RADS: 2 - Benign FOLLOW UP: 1 Year Follow-up
== END 2025-03-10 10:02 | disposition home or self-care (01) ==
LOC: RAD 10:02
PROVIDERS: PCP Family Medicine; Visit Provider Family Medicine
DX: Z12.31 Encounter for screening mammogram for malignant neoplasm of breast (principal); R92.343 Mammographic extreme density, bilateral breasts; R92.323 Mammographic fibroglandular density, bilateral breasts; R92.1 Mammographic calcification found on diagnostic imaging of breast
CPT/HCPCS: 77063; 77067

== ENCOUNTER 2025-03-13 08:48 | Outpatient (CLI) | payer MEDICARE, OTHER, SELFPAY ==
--- NOTE | 2025-03-13 | ECG_ITS ---
[facility] Date: 2025-03-13 Pat Name: Bette Dawson Department: Room: Gender: Female Advanced Manufacturing Technician: : 1945 Requested By: Yan Baker Order Number: [id number] Reading MD: KELSEY BENITEZ Interpretive Statements Lung unchanged pre/post procedure; Intraprocedure shortess of breath; Symptoms resoled by discharge NOTE: Please note that this is the electrocardiogram portion of the Lexiscan/Sestamibi stress test. The perfusion scan will be documented separately. DATA: Baseline heart rate was 69 beats per minute. Baseline blood pressure was 171/84 millimeters of mercury. Target heart rate was 142. Maximum heart rate achieved was 125. which was 88 % of the predicted target heart rate. Maximum blood pressure was 171/84 millimeters of mercury. The reason for ending the test was completion of the protocol. The patient did not experience any symptoms. ELECTROCARDIOGRAM: BASELINE: Sinus rhythm. Normal axis. Interventricular conduction delay EXERCISE: After Lexiscan injection, no ST-T changes suggestive of ischemic noted. No arrhythmia noted. CONCLUSION: Please note due to baseline abnormality of the EKG specificity and sensitivity of the EKG portion of LexiScan MIBI stress test will be low 1. EKG not suggestive of ischemia 2. Lexiscan injection unremarkable. 3. Perfusion scan will be documented separately. Electronically Signed On 03-26-2025 20:24:30 BELT MEASURER by KELSEY BENITEZ [id number]
--- NOTE | 2025-03-13 09:10 | NMCV_ITS ---
NM kiko perf SPECT r/s* [id number] Bette Dawson Age: 80 Gender: F : 1945 Exam Date: 03/13/2025 09:56 Ordering Phys: Yan Cabrera DO Technologist: MUNIR Noriega Exam Location: [facility] Indications: cp STRESS TEST Please see separate stress test report in [facility] for full findings IMAGE PROTOCOL Rest/Stress 1 Lexiscan Day Radiopharmaceutical Dose (mCi) Administration Site Administered by Rest: Tc-99m 10.3 IV Cheryl Ronquillo, OFFICE MESSENGER HELPER Sestamibi Stress:Tc-99m 32.6 IV Cheryl Negrogle, OFFICE MESSENGER HELPER Sestamibi Rest: 13-Mar-2025 60 Discovery 630 Stress: 13-Mar-2025 30 Discovery 630 0.4mg Lexiscan. Supine position only as patient was unable to lay prone. Patient had a loop of bowel we could not get to clear. SPECT RESULTS Technical Quality: Good Raw Data Analysis: Normal Image Corrections: No attenuation or motion correction applied Summed Stress Score: 0 Summed Rest Score: 0 Summed Difference Score: 0 PERFUSION FINDINGS SPECT images demonstrate homogeneous tracer distribution throughout the myocardium. FUNCTIONAL RESULTS (calculated via Gated SPECT) Stress Image LV EF (%): 90 Stress EDV (mL):49 TID: 0.83 Stress ESV (mL):5 FUNCTIONAL FINDINGS: There is normal left ventricular systolic function. IMPRESSIONS Myocardial perfusion imaging is normal. Grisel Mitchell MD (Electronically Signed) Final Date: 13 March 2025 19:17 S
[2025-03-13 09:11] VITALS: BMI 18.3
[2025-03-13 10:53] VITALS: BP 133/70; PULSE 89
== END 2025-03-13 08:49 | disposition home or self-care (01) ==
LOC: CDL 08:51
PROVIDERS: Family Provider Specialist; PCP Family Medicine; Visit Provider Family Medicine
DX: R07.9 Chest pain, unspecified (principal)
CPT/HCPCS: 36415; 78452; 93017; 96374; A9500; J2785

== ENCOUNTER → 2025-03-17 08:33 | Outpatient (BNVA) | payer MEDICARE, OTHER, SELFPAY | PROVIDERS: Family Provider Specialist; PCP Family Medicine; Visit Provider Specialist | DX: R42 Dizziness and giddiness (principal); I63.531 Cerebral infarction due to unspecified occlusion or stenosis of right posterior cerebral artery; I63.50 Cerebral infarction due to unspecified occlusion or stenosis of unspecified cerebral artery; R07.89 Other chest pain; I10 Essential (primary) hypertension; R00.2 Palpitations; G47.10 Hypersomnia, unspecified | CPT/HCPCS: 99214 ==

== ENCOUNTER → 2025-05-13 09:54 | Outpatient (BNVA) | payer MEDICARE, OTHER, SELFPAY | PROVIDERS: PCP Family Medicine; Visit Provider Nurse Practitioner Family | DX: J06.9 Acute upper respiratory infection, unspecified (principal) | CPT/HCPCS: 87400; 87426 ==